=== PATIENT | female | born 1940 | race Caucasian/White ===

== ENCOUNTER → 2023-04-22 11:01 | Outpatient (REF) | payer MEDICARE, BC, SELFPAY ==
[2023-04-22 12:01] LABS: % Basophils 1.1 % (0-2); % Eosinophils 4.2 % (0-6); % Immature Granulocytes 0.5 % (0-0.5); % Monocytes 10.5 % (1.7-9.3); % Neutrophils 62.7 % (42.2-75.2); Absolute Basophils 0.1 10^3/uL (0-0.2); Absolute Eosinophils 0.3 10^3/uL (0-0.7); Absolute Lymphocytes 1.7 10^3/uL (1.2-3.4); Absolute Monocytes 0.8 10^3/uL (0.1-0.6); Absolute Neutrophils 4.9 10^3/uL (1.4-6.5); Hematocrit 38.1 % (37.0-47.0); Hemoglobin 12.5 g/dL (12.0-16.0); Mean Corp Hgb Conc. 32.8 g/dL (33.0-37.0); Mean Corpuscular Hgb 30.6 pg (27.0-31.0); Mean Corpuscular Volume 93.4 fL (81.0-99.0); Mean Platelet Volume 10.9 fL (7.4-10.4); Nucleated Red Blood Cells % 0 %; Platelet Count 203 10^3/uL (130-400); Red Blood Cell Count 4.08 10^6/uL (4.20-5.40); Red Cell Dist. Width 16.2 % (11.5-14.5); White Blood Cell Count 7.8 10^3/uL (4.8-10.8)
[2023-04-22 12:36] LABS: ALT (SGPT) 19 U/L (0-35); AST (SGOT) 25 U/L (14-36); Alkaline Phosphatase 61 U/L (38-126); Blood Urea Nitrogen 18 mg/dl (7-17); Calcium 10.2 mg/dl (8.4-10.2); Carbon Dioxide 28 mmol/L (22-30); Chloride 102 mmol/L (98-107); Glucose 116 mg/dl (70-99); Potassium 4.5 mmol/L (3.5-5.1); Sodium 139 mmol/L (135-145); Total Bilirubin 0.7 mg/dl (0.2-1.3); Total Protein 7.2 g/dl (6.3-8.2)
[2023-04-22 13:33] LABS: Erythrocyte Sed Rate 26 mm/hour (0-20)
== END ==
LOC: REG 11:01
PROVIDERS: ATTENDING PHYSICIAN Internal Medicine Rheumatology; FAMILY PHYSICIAN Internal Medicine Geriatric Medicine
DX: L40.9 Psoriasis, unspecified (principal); Z79.899 Other long term (current) drug therapy
CPT/HCPCS: 36415; 80053; 85025; 85652; 86140

== ENCOUNTER 2023-05-29 03:46 | Inpatient (IN) | payer MEDICARE, BC, SELFPAY ==
[2023-05-28 20:53] VITALS: BP 152/95
[2023-05-28 21:06] LABS: % Basophils 0.4 % (0-2); % Eosinophils 0.8 % (0-6); % Immature Granulocytes 0.5 % (0-0.5); % Lymphocytes 9.1 % (20.5-51.1); % Monocytes 10.9 % (1.7-9.3); % Neutrophils 78.3 % (42.2-75.2); Absolute Eosinophils 0.1 10^3/uL (0-0.7); Absolute Immature Granulocytes 0.1 10^3/uL (0-0.05); Absolute Monocytes 1.2 10^3/uL (0.1-0.6); Absolute Neutrophils 8.3 10^3/uL (1.4-6.5); Hematocrit 39.4 % (37.0-47.0); Hemoglobin 13.1 g/dL (12.0-16.0); Mean Corp Hgb Conc. 33.2 g/dL (33.0-37.0); Mean Corpuscular Hgb 31.2 pg (27.0-31.0); Mean Corpuscular Volume 93.8 fL (81.0-99.0); Mean Platelet Volume 10.3 fL (7.4-10.4); Nucleated Red Blood Cells % 0 %; Platelet Count 115 10^3/uL (130-400); Red Cell Dist. Width 16.8 % (11.5-14.5); White Blood Cell Count 10.6 10^3/uL (4.8-10.8)
[2023-05-28 21:30] LABS: ALT (SGPT) 18 U/L (0-35); AST (SGOT) 22 U/L (14-36); Albumin 4.6 g/dl (3.5-5.0); Alkaline Phosphatase 63 U/L (38-126); Blood Urea Nitrogen 17 mg/dl (7-17); Calcium 9.9 mg/dl (8.4-10.2); Carbon Dioxide 27 mmol/L (22-30); Chloride 98 mmol/L (98-107); Glucose 122 mg/dl (70-99); Potassium 4.3 mmol/L (3.5-5.1); Sodium 133 mmol/L (135-145); Total Bilirubin 1.1 mg/dl (0.2-1.3); Total Protein 7.6 g/dl (6.3-8.2); eGFR 56.95
[2023-05-28 23:56] VITALS: BMI 34.7
[2023-05-29] VITALS (13 sets, daily range): BP systolic 124–175; BP diastolic 71–98; PULSE 86; O2SAT 92; BMI 34.7
--- NOTE | 2023-05-29 00:36 | ED.GENMED ---
History of Present Illness
General
Chief Complaint: Fever
Source: patient
Exam Limitations: none
Time Seen by Provider: 05/29/23 00:00
Nursing documentation reviewed up to this point in time: agreed with
Travel History
Have you had any contact with someone who has COVID-19?: No
Do you have any symptoms of coronavirus? Fever > 100 degrees, chills, cough, shortness of breath, sore throat, loss of taste or smell, muscle aches, or headache?: Yes
Symptoms:: fever
History of Present Illness
History of Present Illness:
82-year-old female resident of [facility] presents with fever and increased lethargy today. Family members were visiting with her and throughout the afternoon she started to get more and more 'lethargic '. Patient was unable to ambulate with
her walker to the bathroom. Family was concerned because she is in personal care, but does not typically request extra help. They feel that she is a fall risk since she already has balance issues.
Vital signs are stable. Patient not hypoxic
Nursing note reviewed. I agree with nursing documentation up to this point in time.
Home Meds and allergies reviewed.
NUMBER AND COMPLEXITY OF PROBLEMS ADDRESSED AT THE ENCOUNTER
� Chronic conditions affecting care: Balance issues, CHF, CAD, hypertension, hyperlipidemia, frequent urination requiring frequent trips to the bathroom, frequent UTIs
� Acute Exacerbation and/or Progression of Chronic Illness: None
� Differential Diagnosis includes: UTI, sepsis
AMOUNT AND/OR COMPLEXITY OF DATA TO BE REVIEWED AND ANALYZED
I performed an independent evaluation of the following and my interpretation is:
EKG: EKG shows normal sinus rhythm rate of 79 with nonspecific sinus arrhythmia. Normal axis. Normal interval. When compared with previous EKG dated October 10, 2022, PVCs are no longer present.
CT:
X-rays:
Ultrasound:
Laboratory Studies: 10.6 white blood cell count
Other:
Review of other/old records:
Clinical information was obtained by an independent historian: Both daughters
Prescriptions/Medications Considered but not given:
Further testing considered but not performed:
RISK OF COMPLICATIONS AND/OR MORBIDITY OR MORTALITY OF PATIENT MANAGEMENT
Social determinants of health affecting care: Good Social Support
Discussion with other providers: Hospitalist for admission
Escalation of care including admission/observation vs risk of discharge considered: Patient does not live in assisted living. She does have the ability to ask for help but family states that she does not typically call for
help, especially when getting up in the middle of the night. Family states that because of her weakness they are concerned that she might fall. I am in agreement. Patient to be brought in for further evaluation
CRITICAL CARE NOTE: Not applicable
Total Time (exclusive of procedures):
Update:
Past History
Past History
ED Past Medical History: CAD, CHF, HTN and Other (Renal calculi)
ED Past Surgical History: Cardiac
Social History
Tobacco: Non-smoker
Alcohol: None
Drug: None
Personal:
Living: assisted living
Employment: Retired
Phy Exam
General Physical Exam
General Presentation: well appearing and no apparent distress
General Skin: warm and dry
General Habitus: elderly
General Mental: alert and anxious
General Hydration: appears well hydrated
ENT Exam
ENT Exam: EOMI, pharynx normal, neck supple and normocephalic
Eye Exam
Eye Exam: PERRL, cornea clear and conjunctiva normal
Cardiovascular Exam
Cardiovascular Exam: regular rate/rhythm, no edema, no murmur and normal peripheral pulses
Pulmonary Exam
Pulmonary Exam: lungs clear, no respiratory distress, no rales, no crackles, no rhonchi, no stridor, no wheezing and no cough
Gastrointestinal Exam
Gastrointestinal Exam: normal bowel sounds, non tender, soft, no organomegaly, no pulsatile mass and non distended
Neurological Exam
Neurological Exam: alert, oriented x3, no motor deficits and speech normal
Musculoskeletal Exam
Musculoskeletal Exam: full ROM and no edema
Skin Exam
Skin Exam: normal color, warm/dry, no rash and no petechia
Psychiatric Exam
Psychiatric Exam: normal mood/affect
Course
Orders/Labs/Results
Orders:
Orders
05/28/23 21:01
Complete Blood Count/With Diff Urgent
Comprehensive Metabolic Panel Urgent
05/29/23 00:14
COVID-19 Antigen Urgent
Source: Nasal Swab
Lactic Acid Q4H
Comment: ON ICE, CANCEL 2ND ORDER IF FIRST LACTIC ACID LEVEL <2
Blood Culture Q30M
JOSE Source: Blood/Venous
Specimen Description:
Comment: FROM 2 SEPARATE SITES
Influenza A+B Rapid Molecular Urgent
JOSE Source: Nasal Swab
Specimen Description:
05/29/23 00:39
Electrocardiogram (*1) Urgent
Reason for Study: QTc Monitoring
EKG- Treatment ONCE
05/29/23 01:32
Acetaminophen [Tylenol/Feverall] 650 mg .ROUTE .STK-MED ONE
05/29/23 01:34
Acetaminophen [Tylenol/Feverall] 650 mg RECTAL NOW STA
05/29/23 01:43
Urinalysis Reflex To Culture Urgent
Date Specimen was Collected: 05/29/23
Time Specimen was Collected: 01:39
Comment: STRAIGHT CATH
Urine Microscopic Reflex Cult Urgent
Urine Culture Urgent
JOSE Source: U
Specimen Description:
Date Specimen was Collected: 05/29/23
Time Specimen was Collected: 01:39
05/29/23 02:18
CR Chest - 2 Views Urgent
Comment:
Reason For Exam: fever
05/29/23 02:52
Admit/Transfer Patient As Directed
Co-Sign Provider:
Level of Care: Inpatient admission
Assign to:: Medical/Surgical
Physician / Group: [email or web address]
Diagnosis: Fever, Hypoactive TME, HX recurrent UTI including ESBL E Coli
Reason for Hospitalization: Fever, Hypoactive TME, HX recurrent UTI including ESBL E Coli
Expected length of stay greater than two midnights?: Yes
ELOS- Estimated Length of Stay in days: 5
I certify the patient meets the requirements for IP care: Yes
05/29/23 02:57
LevoFLOXacin 500 MG/100 ML [Levaquin] 500 mg in 100 ml IV NOW
05/29/23 03:04
Code Status As Directed
Resuscitation Status: Do not resuscitate
Reached after discussion with pt or family/Healthcare POA: Yes
05/29/23 03:05
DNR Bracelet Application ONCE
05/29/23 04:20
Blood Culture Q30M
JOSE Source: Blood/Venous
Specimen Description:
Comment: FROM 2 SEPARATE SITES
05/29/23 05:43
0.9% Sodium Chloride 1000 ml [Nss] 1,000 ml IV 60 mls/hr
Acetaminophen [Tylenol] 650 mg PO Q4HPRN PRN
05/29/23 05:43
Activity As Directed
Activity Level: With Assistance
Intake/ Output As Directed
Frequency: Per unit guidelines
Vital Signs As Directed
Frequency: Per unit guidelines
Weight As Directed
Frequency: Daily
Physical Therapy Consult [Pt Eval And Treat] Routine
Activity Level: With Assistance
Speech Screening from Silvano Routine
DX Deep Vein Thrombosis Video Routine
05/29/23 05:47
Basic Metabolic Panel IN AM
Complete Blood Count/No Diff IN AM
05/29/23 06:00
EKG [Electrocardiogram (*1)] IN AM
Reason for Study: QTc Monitoring
05/29/23 18:00
Enoxaparin Sodium [Lovenox] 40 mg SC QPM
05/30/23 06:00
LevoFLOXacin 500 MG/100 ML [Levaquin] 500 mg in 100 ml IV Q24H
Abnormal Lab Results
05/28/23 05/29/23
21:01 01:43
MCH 31.2 H pg
(27.0-31.0)
RDW 16.8 H %
(11.5-14.5)
Plt Count 115 L 10^3/uL
(130-400)
Abs Immat Gran (auto) 0.1 H 10^3/uL
(0-0.05)
Absolute Neuts (auto) 8.3 H 10^3/uL
(1.4-6.5)
Absolute Lymphs (auto) 1.0 L 10^3/uL
(1.2-3.4)
Absolute Monos (auto) 1.2 H 10^3/uL
(0.1-0.6)
Neutrophils % 78.3 H %
(42.2-75.2)
Lymphocytes % 9.1 L %
(20.5-51.1)
Monocytes % 10.9 H %
(1.7-9.3)
Sodium 133 L mmol/L
(135-145)
Glucose 122 H mg/dl
(70-99)
Ur Occult Blood Reflex Trace A
(Negative)
Leukocyte Esterase Rfl 1+ A
(Negative)
Urine RBC 3-6 A /HPF
(0-2)
Urine WBC (Reflex) >100 A /HPF
(0-5)
Urine Bacteria (Reflex) Many A
(Negative)
05/28/23 21:01
05/28/23 21:01
Vital Signs
Initial and Last Documented VS:
Initial Vital Signs
Temp Pulse Resp Pulse Ox
100.3 F 84 19 96
05/28/23 20:50 05/28/23 20:50 05/28/23 20:50 05/28/23 20:50
Last Documented Vital Signs
Temp Pulse Resp BP Pulse Ox
98.6 F 82 16 131/75 93
05/29/23 18:32 05/29/23 18:32 05/29/23 18:32 05/29/23 18:32 05/29/23 18:32
*Critical Care Note
Total Time (30-74mins, 75-104mins- exclusive of procedures): Not Applicable
ED Attending Note
-
Portions of this chart may have been created with voice recognition software.� Occasional wrong word or��sound alike� substitutions may have occurred due to the inherent limitations of voice recognition software.
Discharge Plan
Departure
Patient Disposition: Admit
Date of Disposition: 05/29/23
Time of Disposition: 02:51
Admit to: Med/Surg
Presentation/result/management discussed w/ accepting MD/DO: Hospitalist
Patient with high blood pressure during this ER visit?: No
Discharge Problem:
Weakness, Acute UTI, Ambulatory dysfunction
Interventions
Interventions:
*Risk Screen - Suicide Last Done: 05/28/23 23:56
*General Assessment Last Done: 05/28/23 23:56
*Neglect/Abuse Screening Last Done: 05/28/23 23:56
*ED COVID-19 Vaccine History Last Done: 05/28/23 20:52
*Nursing Disposition Last Done: 05/29/23 18:02
ED- Neurological Assessment Last Done: 05/29/23 00:03
ED-Skin Assessment Last Done: 05/29/23 00:03
[2023-05-29 00:37] LABS: COVID-19 Antigen Negative (Negative)
[2023-05-29] MEDS: TYLENOL/FEVERALL 650 MG RECTAL (01:40)
[2023-05-29 01:49] LABS: Urine Albumin Trace (Neg - Trace); Urine Bilirubin Negative (Negative); Urine Character Slightly Cloudy (Clear); Urine Color Yellow; Urine Glucose Negative (Negative); Urine Ketone Negative (Negative); Urine Leukocyte 1+ (Negative); Urine Nitrite Negative (Negative); Urine Occult Blood Trace (Negative); Urine Urobilinogen Negative (Neg - 1+)
--- NOTE | 2023-05-29 02:47 | HPS.HSE ---
Family Physician
-
Family Physician: Marcos Brunson
Chief Complaint
-
AMS, weak
History of Present Illness
I could not get any information from the patient as she is lethargic
Information gathered by chart review and speaking with the ER staff and family
82F Res of [facility] HX ESBL E Coli UTIs pw fever and increased lethargy today noted by Family members
Reports urine burning last week
Associated with general debility due to generalized weakness complicated byy acute on chr gait dysfunction. Normally use walker to the bathroom.
HX Interstial cystitis
Medical History
Past Medical History
Past Medical History: Reports Other
Additional Past Medical History:
Severe carotid calcification without critical narrowing
Diastolic congestive heart failure
Coronary artery disease
Wru-rkwuoql-lexkfvbon diabetes mellitus
Psoriasis with arthritis
Hyperlipidemia
Mild thrombocytopenia
Diverticulosis
History cholelithiasis
History nephrolithiasis
Abdominal aortic aneurysm
Obesity with excessive calorie intake
Past Surgical History: Reports None
Social History
Tobacco: Non-smoker
Alcohol: None
Drug: None
Living: Detention
Family History
Family History: Not pertinent
Allergies / Home Medications
Allergies reflects when Allergies were last updated in [facility].
Home Medications with original date entered in [facility]
Allergy/Medication List:
Allergies
Allergy/AdvReac Type Severity Reaction Status Date / Time
adhesive Allergy bleeding, Verified 05/28/23 20:52
reddness,
rash
amoxicillin Allergy Unknown, Verified 05/28/23 20:52
Tolerates
cephalosporins
scallops Allergy Unknown Verified 05/28/23 20:52
Home Medications
isosorbide mononitrate 60 mg tablet,extended release 24 hr 60 mg PO DAILY Heart disease/condition 05/05/21
methotrexate sodium 2.5 mg tablet 15 mg PO SA arthritis 05/05/21
pravastatin 10 mg tablet 10 mg PO DAILY High cholesterol 05/05/21
aspirin 81 mg tablet,delayed release 81 mg PO DAILY Blood clot prevention/tx 08/11/21
metoprolol succinate 50 mg tablet,extended release 24 hr 50 mg PO DAILY Blood pressure 08/11/21
potassium chloride 20 mEq tablet,extended release(part/cryst) (Klor-Con M) 20 meq PO DAILY Electrolyte Repletion 08/11/21
calcium carbonate 500 mg PO DAILY Supplement 06/06/22
cholecalciferol (vitamin D3) 50 mcg (2,000 unit) capsule (Vitamin D3) 50 mcg PO DAILY Supplement 06/06/22
coenzyme Q10 100 mg capsule 100 mg PO DAILY Supplement 06/06/22
ferrous sulfate 325 mg (65 mg iron) tablet (iron) 325 mg PO DAILY Supplement 06/06/22
folic acid 1 mg tablet 1 mg PO DAILY Supplement 06/06/22
estradiol 0.01% (0.1 mg/gram) vaginal cream 1 applic vaginal MOTH@2200 Hormonal Agent 10/06/22
hydrocortisone 1 % topical cream (Cortisone (hydrocortisone)) 1 applic topical DAILY Skin Issues 10/06/22
mirabegron 25 mg tablet,extended release 24 hr (Myrbetriq) 25 mg PO DAILY Urinary Issue 10/06/22
acetaminophen 500 mg tablet (Pain Relief Extra Strength (acetaminophen)) 1,000 mg (2 x 500 mg) PO Q8H PRN mild pain #30 tabs 10/13/22
oxycodone 10 mg tablet 10 mg PO Q4HPRN PRN mod sev pain #14 tabs 10/13/22
polyethylene glycol 3350 17 gram oral powder packet (HealthyLax) 17 g PO DAILY #30 ea 10/13/22
tamsulosin 0.4 mg capsule 0.4 mg PO DAILYPRN PRN bladder scan volume > 400 mL #30 caps 10/13/22
cefixime 400 mg capsule 400 mg PO DAILY 7 days #7 caps 01/17/23
Review of Systems
-
Constitutional: Reports Fever
EENT: Reports No Symptoms
Respiratory: Reports No Symptoms
Cardiac: Reports No Symptoms
Abdomen/GI: Reports No Symptoms
: Reports No Symptoms
Musculoskeletal: Reports No Symptoms
Skin: Reports No Symptoms
Neurological: Reports See HPI and Weakness
Endocrine: Reports No Symptoms
Hematologic/Lymphatic: Reports No Symptoms
Psych: Reports No Symptoms
Physical Exam
Vital Signs
Vital Signs
Temp Pulse Resp BP Pulse Ox
101.8 F H 77 20 156/89 94
05/29/23 00:03 05/29/23 02:30 05/29/23 02:30 05/29/23 02:00 05/29/23 02:30
Physical Exam
General: Well Developed, No Apparent Distress and Comfortable
HEENT: NormoCephalic, Anicteric and Moist mucous membranes
Respiratory: Clear; No Wheezes or Rales
Cardiac: S1/S2 and Regular Rhythm; No Murmur
Breast: Deferred by me
GI: Soft, Non Tender, Non Distended and Normal Bowel Sounds
Rectal: Deferred by Provider
Genito-urinary: Deferred by me
Musculoskeletal: No Edema
Neuro: Awake, Alert (lethargic ) and Nonfocal/grossly intact
Psych: Calm
Laboratory Results
-
05/28/23 21:01
05/28/23 21:01
Laboratory Results
Lactic Acid Cancelled 05/29/23 04:15
Total Bilirubin 1.1 mg/dl (0.2-1.3) 05/28/23 21:01
AST 22 U/L (14-36) 05/28/23 21:01
ALT 18 U/L (0-35) 05/28/23 21:01
Alkaline Phosphatase 63 U/L (38-126) 05/28/23 21:01
Data Reviewed
-
Lab Data: Labs Reviewed by me
Old Records: Reviewed
Impression/Plan
-
Reviewed VS: T 101.8 HR 80s BP 160/100 RR 24 POx 93
Data
WCC 10.6
Plt 115
Na 133
Cr 1.0
e GFR 56
LA 1.0
UA: incomplete
BC xsnt
CXR : pending final report
NEG Covid
Last hospitalist admission: 10/08/22- 10/14/22 DXs:
Mechanical fall
Right proximal humeral fracture
Scalp laceration
Left hand fifth digit proximal interphalangeal joint dislocation
Klebsiella pneumonia urinary tract infection
ASSESSMENT & PLAN
Acute fever DDX: Recurrent UTI - Hemodynamically stable, NEG LA
Associated hypoactive TME with lethargy: Risks for falls and aspiration
Associated general debility due to generalized weakness complicated by acute on chr gait dysfuntion.
HX Klebsiella POS UCx - castle AB sensitive (10/07/22)
HX ESBL E Coli UTI sensitive to LVQ, resistant to CFP (06/05/22)
- await UA, UCx , BCx
- await CXR final report
- Empiric IV LVQ
- EKG to monitor QTc
- IVF
- Held PO Meds including MTX
- Precautions: Fall and aspiration
Accute on chronic Ambulatory dysfunction ie to above
-PT/OT/case management
HX CAD
- on metoprolol
- on isosorbide mononitrate
Chronic HFpEF with EF of 55 to 60%
Essential hypertension
HX renal calculi/staghorn calculus
Hyperlipidemia
- on statin
Psoriatic arthritis
- held methotrexate
DVT Px: LMWH
Code: DNR per [place] at bed side
IP MS
[2023-05-29 02:49] LABS: Urine Amorphous Seen; Urine Bacteria Many (Negative); Urine Squamous Cell >30 /LPF (Few); Urine White Cell >100 /HPF (0-5)
[2023-05-29] MEDS: LEVAQUIN 100 IV (04:23)
[2023-05-29 06:12] LABS: Hematocrit 36.6 % (37.0-47.0); Mean Corp Hgb Conc. 32.8 g/dL (33.0-37.0); Mean Corpuscular Hgb 31.2 pg (27.0-31.0); Mean Corpuscular Volume 95.1 fL (81.0-99.0); Platelet Count 103 10^3/uL (130-400); Red Blood Cell Count 3.85 10^6/uL (4.20-5.40); Red Cell Dist. Width 16.5 % (11.5-14.5); White Blood Cell Count 10.6 10^3/uL (4.8-10.8)
[2023-05-29 06:19] LABS: Blood Urea Nitrogen 17 mg/dl (7-17); Calcium 9.2 mg/dl (8.4-10.2); Carbon Dioxide 25 mmol/L (22-30); Chloride 100 mmol/L (98-107); Estimated Creatinine Clearance 51 ml/min; Glucose 149 mg/dl (70-99); Potassium 3.5 mmol/L (3.5-5.1); Sodium 135 mmol/L (135-145); eGFR > 60.00
--- NOTE | 2023-05-29 06:40 | EDRN ---
the pt is asking for water to drink. Per admitting hospitalist Dr Dinero verbal order, this MEDICAL SALES REPRESENTATIVE performed swallowing screening on this pt. the pt passed the swallow screening. Per admitting Hospitalist Dr Dinero, if the pt passed her swallowing
screening then she can be on Cholesterol Lowering Diet.
--- NOTE | 2023-05-29 08:12 | W.PN.UPDATE ---
Update Note
Progress Note Update
Patient seen and examined in a.m. patient was admitted this morning and this will be a nonbillable note as a result.
Although history of some dementia as was recently transition from independent living at [facility] to assisted seems to have a fair amount of cognition and relates that she has had prior urinary tract infections in the past and cannot understand
why she keeps getting them. We talked about also her risk of resistant infections given her immune compromised being on methotrexate. She had a fairly high fever overnight of 101.8 and explained to her we will need to have a period of time without
a fever for least 24 hours prior to a discharge plan.
Presently does not describe any dysuria but had significant burning in the last week where she suspected she may have a recurrent bladder infection.
Exam except for borderline BP elevation is otherwise benign she is not on telemetry but exhibits a regular rhythm on auscultation
Abdomen is benign
No significant peripheral edema
Laboratory profiling shows a white count of 10.6 which will be trended
Borderline thrombocytopenia with 103,000 and macrocytic indices. Potassium 3.5 sodium 135
Chest x-ray was reviewed and shows some blunting of costophrenic angles no infiltrate with marked kyphosis
Agree with present course of antibiotics chosen in the form of Levaquin will monitor QTc with an EKG in a.m.
Await culture results of blood and urine
Will cautiously continue present course of IV fluids given her febrile course however would consider discontinuation if sodium continues to trend down
Add as needed hydralazine for hypertension continue metoprolol
[2023-05-29] MEDS: NSS 1000 IV (09:24)
[2023-05-29] MEDS: TYLENOL 650 MG PO (14:56)
[2023-05-29] MEDS: MERREM 1000 MG IV (17:07)
[2023-05-29] MEDS: STERILE WATER FOR INJECTION 20 ML IV (17:07)
[2023-05-29] MEDS: LOVENOX 40 MG SC (17:17)
--- NOTE | 2023-05-29 17:45 | CON.ID ---
Consultation
-
Date/Time Consultation Requested: May 29, 2023, 1527
Date/Time Consultation Performed: May 29, 2023, 1800
Requesting Provider: Dr. Guido Le
Performing Provider: Dr. Charlee Sanchez
Reason for Consultation: Fever
Chief Complaint / Past History
Chief Complaint
Fever
History of Present Illness
82-year-old female with diabetes mellitus, heart failure with preserved EF, CAD, Psoriatic arthritis on methotrexate, recurrent UTI who came from personal care assisted living due to fevers. She reports last week she had burning with urination.
Today started with fever and chills. Per record also with increased lethargy. She was therefore sent to the ER. In the ER she has been febrile. Urinalysis with greater than 100 white blood cells. She received levofloxacin and meropenem. No
flank pain. No nausea, vomiting. No diarrhea.
Past History
Additional Past Medical History:
COPD
Diabetes mellitus
Diastolic congestive heart failure
Coronary artery disease
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
Hyperlipidemia
AAA
Nephrolithiasis
Recurrent UTI
Allergy History:
adhesive Allergy (Verified 05/28/23 20:52)
bleeding, reddness, rash
amoxicillin Allergy (Verified 05/28/23 20:52)
Unknown, Tolerates cephalosporins
scallops Allergy (Verified 05/28/23 20:52)
Unknown
Medications Reviewed: Yes
Current Antibiotics:
levofloxacin
meropenem x1
Social History
Tobacco: Non-Smoker
Alcohol: None
Drug: None
Living: Assisted Living
Family History
Family History: Not Pertinent
Review of Systems
Review of Systems
General: Fever, Chills and Change in Appetite
HEENT: Negative Sinus Problems, Headache or Pharyngitis
Cardiovascular: Negative Chest Pain
Respiratory: Negative Dyspnea or Cough
Gasteroenterology: Negative Nausea or Vomiting
Genital / Urological: Dysuria; Negative Flank Pain
Endocrine: Weakness
Neurological: Negative Headache
All systems: All other systems were reviewed and were negative
Vital Signs
Temp Pulse Resp BP Pulse Ox
99.1 F 84 18 147/81 93
05/29/23 17:14 05/29/23 14:47 05/29/23 14:47 05/29/23 14:47 05/29/23 14:47
Selected Entries
05/29/23
00:03 05/29/23
14:53
Temp 101.8 F H 102.7 F H
Physical Exam
Physical Exam
Constitutional: No Acute Distress, Comfortable and Obese
Eyes: No Conjunctival Hemorrhage and Sclera Anicteric
Cardiovascular: Regular Rate and S1/S2
Pulmonary: Clear
Gastrointestinal: Soft, Non Tender, Non Distended and Normal Bowel Sounds
Genito-Urinary: Negative CVA Tenderness
Extremities: Negative Edema
Neurological: AO x 3
Lab / Diagnostic Study Results
05/29/23 05:47
05/29/23 05:47
Abs Immat Gran (auto) 0.1 10^3/uL (0-0.05) H 05/28/23 21:01
Absolute Neuts (auto) 8.3 10^3/uL (1.4-6.5) H 05/28/23 21:01
Absolute Lymphs (auto) 1.0 10^3/uL (1.2-3.4) L 05/28/23 21:01
Absolute Monos (auto) 1.2 10^3/uL (0.1-0.6) H 05/28/23 21:01
Absolute Basos (auto) 0.0 10^3/uL (0-0.2) 05/28/23 21:01
Immature Gran % 0.5 % (0-0.5) 05/28/23 21:01
Neutrophils % 78.3 % (42.2-75.2) H 05/28/23 21:01
Lymphocytes % 9.1 % (20.5-51.1) L 05/28/23 21:01
Monocytes % 10.9 % (1.7-9.3) H 05/28/23 21:01
Eosinophils % 0.8 % (0-6) 05/28/23 21:01
Basophils % 0.4 % (0-2) 05/28/23 21:01
Lactic Acid Cancelled 05/29/23 04:15
Ur Squamous Epith Cells >30 /LPF (Few) 05/29/23 01:43
Microbiology Results
Micro:
05/29/23 16:50 Blood Culture - Pending
Blood/Venous
05/29/23 16:09 Blood Culture - Pending
Blood/Venous
05/29/23 10:47 MRSA Screen - Pending
Nose
05/29/23 04:20 Blood Culture - Pending
Blood/Venous
05/29/23 01:43 Urine Culture - Pending
Urine
05/29/23 00:14 Influenza Types A & B (TESS) - Final
Nasal Swab Negative for Influenza A & B, NAAT
Negative results must be combined with clinical observations
and patient history.
Nucleic Acid Amplification test (NAAT)performed on the
[employer] platform.
05/29/23 00:14 Blood Culture - Pending
Blood/Venous
05/29/23 CXR: There are changes of COPD but no acute findings
Assessment / Plan
# UTI
#Fever
# hx ESBL-Ecoli in urine
# PCN allergy. Tolerated cephalosporins.
- Follow blood cx.
-Follow Ucx.
-DC levofloxacin
-Start Ertapenem pending cx data.
-Trend temps.
[2023-05-29] MEDS: INVANZ 60 MG IV (22:13)
[2023-05-30] MEDS: NSS 1000 IV ×2 (02:42→17:15)
[2023-05-30 05:57] VITALS: BMI 34.4
[2023-05-30 06:18] LABS: Hematocrit 35.3 % (37.0-47.0); Hemoglobin 11.8 g/dL (12.0-16.0); Mean Corp Hgb Conc. 33.4 g/dL (33.0-37.0); Mean Corpuscular Hgb 31.1 pg (27.0-31.0); Mean Corpuscular Volume 92.9 fL (81.0-99.0); Red Cell Dist. Width 16.4 % (11.5-14.5); White Blood Cell Count 8.6 10^3/uL (4.8-10.8)
[2023-05-30 06:46] LABS: Blood Urea Nitrogen 12 mg/dl (7-17); Calcium 8.3 mg/dl (8.4-10.2); Carbon Dioxide 22 mmol/L (22-30); Chloride 104 mmol/L (98-107); Estimated Creatinine Clearance 57 ml/min; Glucose 121 mg/dl (70-99); Sodium 132 mmol/L (135-145); eGFR > 60.00
[2023-05-30 06:53] LABS: Mean Platelet Volume 11.4 fL (7.4-10.4); Platelet Count 85 10^3/uL (130-400)
[2023-05-30 07:17] VITALS: BP 102/69
--- NOTE | 2023-05-30 07:59 | W.PN.HOSP.TC ---
Addendum entered and electronically signed by Juliocesar Frost MD 05/30/23 15:20:
Sepsis, POA
Original Note:
Today's Communication/Plan
-
IV antibiotics.
Assessment / Plan
Assessment / Plan
Physical exam:
General: Acutely ill. Nontoxic
HEENT: Normocephalic, Atraumatic and Moist Mucous Membranes
Respiratory: Clear to Auscultation; Negative Wheezes, Rales or Rhonchi
Cardiac: Regular Rhythm and S1/S2
GI: Soft, Nontender and Nondistended
Musculoskeletal: No Clubbing, No Cyanosis and No Edema
Neuro: Awake, Alert and Oriented
Psych: Calm
A/P:
Urinary tract infection/history of ESBL E. coli in the urine in the past:
-Stop Levaquin
-Start IV ertapenem
-ID consulted appreciated
-Urine culture no growth
-Blood culture pending but no growth so far
-PT recommends skilled rehab
Hypokalemia:
Replete and trend
Hyponatremia:
Mild will continue to monitor
Associated hypoactive TME with lethargy: Risks for falls and aspiration
Associated general debility due to generalized weakness complicated by acute on chr gait dysfuntion.
-Improving
-Resume PO Meds including MTX but actually supposed to take on weekend
- Precautions: Fall and aspiration
Accute on chronic Ambulatory dysfunction ie to above
-PT/OT/case management
HX CAD
- on metoprolol--> resume with holding parameter
- on isosorbide mononitrate--> might resume tomorrow
Chronic HFpEF with EF of 55 to 60%
-Appears euvolemic (not on diuretics)
Essential hypertension
-BP in the low side but stable
- stop IV hydralazine
- on metoprolol--> resume with holding parameter
- on isosorbide mononitrate--> might resume tomorrow
HX renal calculi/staghorn calculus
Hyperlipidemia
- on statin
Psoriatic arthritis
- held methotrexate--> can resume now
DVT Px: LMWH
Code: DNR
Anticipated Discharge: 24 - 48 hours
Subjective/Interval History
-
Date of Service: May 30, 2023
Patient feels better overall. No nausea or vomiting. Afebrile today (Tmax 102.7 Fahrenheit yesterday). She had bowel movement today
Objective Data
-
Labs:
Laboratory Results
05/30/23
05:57
WBC 8.6
Hgb 11.8 L
Hct 35.3 L
Plt Count 85 L
Sodium 132 L
Potassium 3.0 L
Chloride 104
Carbon Dioxide 22
BUN 12
Creatinine 0.8
Glucose 121 H
Calcium 8.3 L
Vital Signs:
Vital Signs
Temp Pulse Resp BP Pulse Ox
99.3 F 82 20 165/84 96
05/29/23 23:17 05/29/23 23:33 05/29/23 23:17 05/29/23 23:33 05/29/23 23:17
I&O
05/29/23 05/30/23 05/31/23
06:59 06:59 06:59
Intake Total 1969 / 1969
Output Total 500 / 500
Balance 1470 / 1470
[2023-05-30] MEDS: KCL 40 MEQ PO ×2 (09:00→10:49)
--- NOTE | 2023-05-30 11:57 | W.PN.ID1 ---
Date of Service
Date of Service: May 30, 2023
Today's Communication
DC Ertapenem (d2) if blood cx's remain neg x 48hrs.
Assessment / Plan
#Fever- unclear source
# hx ESBL-Ecoli in urine
# PCN allergy. Tolerated cephalosporins.
- Ucx negative.
-CXR negative
-Blood cx's negative to date
- DC Ertapenem (d2) if blood cx's remain neg x 48hrs.
-Trend temps.
%Additional Past Medical History:
COPD
Diabetes mellitus
Diastolic congestive heart failure
Coronary artery disease
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
Hyperlipidemia
AAA
Nephrolithiasis
Recurrent UTI
Chief Complaint
-: Fever
Subjective / Review of Systems
Feeling better today.
Vital Signs / Physical Exam
Vital Signs
Vital Signs
Temp Pulse Resp BP Pulse Ox
98.6 F 85 16 102/69 96
05/30/23 07:17 05/30/23 07:17 05/30/23 07:17 05/30/23 07:17 05/30/23 07:17
Physical Exam
Constitutional: No Acute Distress and Comfortable
Pulmonary: Clear
Gastrointestinal: Soft, Non Tender and Non Distended
Genito-Urinary: Negative Suprapubic Tenderness or CVA Tenderness
Extremities: Negative Edema
Neurological: AO x 3
Objective Data
Lab Data
Lab Results
05/30/23 05:57
05/30/23 05:57
Estimated Creat Clear 57 ml/min 05/30/23 05:57
Lactic Acid Cancelled 05/29/23 04:15
Total Bilirubin 1.1 mg/dl (0.2-1.3) 05/28/23 21:01
AST 22 U/L (14-36) 05/28/23 21:01
ALT 18 U/L (0-35) 05/28/23 21:01
Alkaline Phosphatase 63 U/L (38-126) 05/28/23 21:01
Most recent labs reviewed.
Micro Results:
05/29/23 01:43 Urine Culture - Final
Urine No Significant Growth
05/29/23 16:50 Blood Culture - Pending
Blood/Venous
05/29/23 04:20 Blood Culture - Preliminary
Blood/Venous No Growth in 24 hours- Final report to follow
05/29/23 00:14 Blood Culture - Preliminary
Blood/Venous No Growth in 24 hours- Final report to follow
05/29/23 16:09 Blood Culture - Pending
Blood/Venous
05/29/23 10:47 MRSA Screen - Pending
Nose
05/29/23 00:14 Influenza Types A & B (TESS) - Final
Nasal Swab Negative for Influenza A & B, NAAT
Negative results must be combined with clinical observations
and patient history.
Nucleic Acid Amplification test (NAAT)performed on the
[employer] platform.
05/29/23 CXR: There are changes of COPD but no acute findings
[2023-05-30] MEDS: TOPROL XL 50 MG PO (12:52)
[2023-05-30] MEDS: MYRBETRIQ EXTENDED RELEASE 50 MG PO (12:52)
[2023-05-30] MEDS: FOLVITE 1 MG PO (12:52)
[2023-05-30] MEDS: VITAMIN D3 (cholecalciferol) 50 MCG PO (12:52)
[2023-05-30] MEDS: ASPIR LOW (ENTERIC COATED) 81 MG PO (12:53)
[2023-05-30] MEDS: OSCAL CAL 500 500 MG PO (12:53)
[2023-05-30] MEDS: PRAVACHOL 10 MG PO (12:53)
[2023-05-30] MEDS: FEOSOL 325 MG PO (12:53)
[2023-05-30 14:30] VITALS: BP 153/93
--- NOTE | 2023-05-30 15:05 | PN.CDI ---
CDI
- -
CDI:
Physician Documentation Request
Admit Date: 05/29/23 03:46
Dear Doctor Margot,
Patient admitted with UTI.
Selected Entries
05/28/23
20:50 05/29/23
00:03
Temp 100.3 F 101.8 F H
05/29/23
00:00 05/29/23
00:16 05/29/23
01:00
Resp Rate 24 24
Please clarify which of the following most accurately describes the status of the patient's infection:
Sepsis
- Systemic manifestations of infection, with 2 or more SIRS criteria which include:
- Fever >100.4 degrees F or hypothermia < 96.8 degrees F
- Leukocytosis - WBC > 12,000 or leukopenia - WBC < 4,000 or > 10% bands
- Tachycardia > 90 beats per minute
- Tachypnea - RR > 20 breaths per minute or PaCO2 , 32mmHg
Source: Merck Manual 2013
Localized Infection Only, Without Systemic Illness
- indicate the site/source, such as UTI, etc.
Other
Use of terms such as suspected, likely, concern for, or probable (associated with a specific diagnosis that is being evaluated, monitored, or treated as if it exists) are acceptable and can be coded in the inpatient setting, when documented at the
time of discharge.
Thank you,
Daya Erazo RN, BSN
CDI Specialist
Available via [place] text
Please use your independent medical judgment in providing your response.
[2023-05-30 15:15] VITALS: BP 165/91
[2023-05-30 16:15] VITALS: BMI 34.4
--- NOTE | 2023-05-30 16:18 | CM ---
Reviewed the chart notes and left voice message for the patient's sister to return call. CM spoke with Zina, membership sales representative at [facility] who confirmed the patient resides in personal care and uses a rolling walker to ambulate. The patient has
had [facility] and [facility] in the past. The patient's discharge plans will depend on progress. PT recommending SNF. CM continues to be available to patient/family and is monitoring medical plan for needs at discharge.
Plan: Discharge plans will depend on the patient's progress.
[2023-05-30 16:21] VITALS: BP 165/92; PULSE 77; O2SAT 95
[2023-05-30] MEDS: LOVENOX 40 MG SC (17:15)
[2023-05-30 17:20] VITALS: BP 136/88
[2023-05-30] MEDS: INVANZ 60 MG IV (21:00)
[2023-05-30 23:45] VITALS: BP 143/85
[2023-05-31 05:23] LABS: % Basophils 0.5 % (0-2); % Eosinophils 3.1 % (0-6); % Immature Granulocytes 0.4 % (0-0.5); % Lymphocytes 19.9 % (20.5-51.1); % Monocytes 12.3 % (1.7-9.3); % Neutrophils 63.8 % (42.2-75.2); Absolute Eosinophils 0.2 10^3/uL (0-0.7); Absolute Lymphocytes 1.5 10^3/uL (1.2-3.4); Absolute Monocytes 0.9 10^3/uL (0.1-0.6); Absolute Neutrophils 4.8 10^3/uL (1.4-6.5); Hemoglobin 12.9 g/dL (12.0-16.0); Mean Corp Hgb Conc. 31.5 g/dL (33.0-37.0); Mean Corpuscular Hgb 30.5 pg (27.0-31.0); Mean Corpuscular Volume 96.9 fL (81.0-99.0); Mean Platelet Volume 11.2 fL (7.4-10.4); Nucleated Red Blood Cells % 0 %; Platelet Count 96 10^3/uL (130-400); Red Blood Cell Count 4.23 10^6/uL (4.20-5.40); Red Cell Dist. Width 16.8 % (11.5-14.5); White Blood Cell Count 7.5 10^3/uL (4.8-10.8)
[2023-05-31 06:00] VITALS: BMI 34.4
[2023-05-31 06:02] LABS: Blood Urea Nitrogen 13 mg/dl (7-17); Calcium 8.9 mg/dl (8.4-10.2); Carbon Dioxide 21 mmol/L (22-30); Chloride 107 mmol/L (98-107); Estimated Creatinine Clearance 57 ml/min; Glucose 74 mg/dl (70-99); Sodium 136 mmol/L (135-145); eGFR > 60.00
[2023-05-31 07:12] VITALS: BP 140/85
--- NOTE | 2023-05-31 08:19 | W.PN.HOSP.TC ---
Today's Communication/Plan
-
Continue current management. Discharge planning in progress.
Assessment / Plan
Assessment / Plan
Physical exam:
General: No acute distress
HEENT: Normocephalic, Atraumatic and Moist Mucous Membranes
Respiratory: Clear to Auscultation; Negative Wheezes, Rales or Rhonchi
Cardiac: Regular Rhythm and S1/S2
GI: Soft, Nontender and Nondistended
Musculoskeletal: No Clubbing, No Cyanosis and No Edema
Neuro: Awake, Alert and Oriented. Generalized weakness
Psych: Calm
A/P:
Fever. History of ESBL E. coli in the urine in the past:
-Stop Levaquin
-Stop IV ertapenem after 3 doses today.
-ID consulted appreciated
-Urine culture no growth
-Blood culture no growth so far
-PT recommends skilled rehab
Delirium:
-Improving
Hypokalemia:
Replete and trend
Hyponatremia:
Mild will continue to monitor
Associated hypoactive TME with lethargy: Risks for falls and aspiration
Associated general debility due to generalized weakness complicated by acute on chr gait dysfuntion.
-Improving
-Resume PO Meds including MTX but actually supposed to take on weekend
- Precautions: Fall and aspiration
Acute on chronic Ambulatory dysfunction ie to above
-PT/OT/case management
HX CAD
- on metoprolol--> resume with holding parameter
- on isosorbide mononitrate--> might resume tomorrow
Chronic HFpEF with EF of 55 to 60%
-Appears euvolemic (not on diuretics)
Essential hypertension
-BP in the low side but stable
- stop IV hydralazine
- on metoprolol--> resume with holding parameter
- on isosorbide mononitrate--> might resume tomorrow
HX renal calculi/staghorn calculus
Hyperlipidemia
- on statin
Psoriatic arthritis
- held methotrexate--> can resume now
DVT Px: LMWH
Code: DNR
Anticipated Discharge: Within 24 hours
Subjective/Interval History
-
Date of Service: May 31, 2023
Patient remains afebrile. Confusion on and off but alert and oriented by the time of my evaluation.
Objective Data
-
Labs:
Laboratory Results
05/31/23
03:55
WBC 7.5
Hgb 12.9
Hct 41.0
Plt Count 96 L
Sodium 136
Potassium 4.0 D
Chloride 107
Carbon Dioxide 21 L
BUN 13
Creatinine 0.8
Glucose 74
Calcium 8.9
Vital Signs:
Vital Signs
Temp Pulse Resp BP Pulse Ox
97.9 F 73 22 143/85 96
05/30/23 23:45 05/30/23 23:45 05/30/23 23:45 05/30/23 23:45 05/30/23 23:45
I&O
05/30/23 05/31/23 06/01/23
06:59 06:59 06:59
Intake Total 1969
Output Total 500 / 500
Balance 1470 / 1470 2129
[2023-05-31] MEDS: NSS IV (08:39)
[2023-05-31] MEDS: TOPROL XL 50 MG PO (09:12)
[2023-05-31] MEDS: MYRBETRIQ EXTENDED RELEASE 50 MG PO (09:12)
[2023-05-31] MEDS: IMDUR (EXTENDED RELEASE) 60 MG PO (09:12)
[2023-05-31] MEDS: OSCAL CAL 500 500 MG PO (09:13)
[2023-05-31] MEDS: ASPIR LOW (ENTERIC COATED) 81 MG PO (09:13)
[2023-05-31] MEDS: FEOSOL 325 MG PO (09:14)
[2023-05-31] MEDS: FOLVITE 1 MG PO (09:14)
[2023-05-31] MEDS: KCL 20 MEQ PO (09:14)
[2023-05-31] MEDS: PRAVACHOL 10 MG PO (09:14)
[2023-05-31] MEDS: VITAMIN D3 (cholecalciferol) 50 MCG PO (09:14)
--- NOTE | 2023-05-31 09:54 | W.PN.ID1 ---
Date of Service
Date of Service: May 31, 2023
Today's Communication
DC ertapenem and observe.
ID will sign off.
Assessment / Plan
#Fever- unclear source, rsolved
# hx ESBL-Ecoli in urine
# PCN allergy. Tolerated cephalosporins.
- Ucx negative.
-CXR negative
-Blood cx's remains negative to date
- DC Ertapenem (d3) and observe.
%Additional Past Medical History:
COPD
Diabetes mellitus
Diastolic congestive heart failure
Coronary artery disease
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
Hyperlipidemia
AAA
Nephrolithiasis
Recurrent UTI
Chief Complaint
-: Fever
Subjective / Review of Systems
No complaints. Wants home PT instead of going to SNF.
Vital Signs / Physical Exam
Vital Signs
Vital Signs
Temp Pulse Resp BP Pulse Ox
97.8 F 75 18 140/85 96
05/31/23 07:12 05/31/23 09:12 05/31/23 07:12 05/31/23 09:12 05/31/23 07:12
Physical Exam
Constitutional: No Acute Distress and Comfortable
Genito-Urinary: Negative CVA Tenderness
Objective Data
Lab Data
Lab Results
05/31/23 03:55
05/31/23 03:55
Estimated Creat Clear 57 ml/min 05/31/23 03:55
Lactic Acid Cancelled 05/29/23 04:15
Total Bilirubin 1.1 mg/dl (0.2-1.3) 05/28/23 21:01
AST 22 U/L (14-36) 05/28/23 21:01
ALT 18 U/L (0-35) 05/28/23 21:01
Alkaline Phosphatase 63 U/L (38-126) 05/28/23 21:01
Most recent labs reviewed.
Micro Results:
05/29/23 04:20 Blood Culture - Preliminary
Blood/Venous No Growth in 48 hours- Final report to follow
05/29/23 00:14 Blood Culture - Preliminary
Blood/Venous No Growth in 48 hours- Final report to follow
05/29/23 16:50 Blood Culture - Preliminary
Blood/Venous No Growth in 24 hours- Final report to follow
05/29/23 16:09 Blood Culture - Preliminary
Blood/Venous No Growth in 24 hours- Final report to follow
05/29/23 10:47 MRSA Screen - Final
Nose No Methicillin Resistant Staphylococcus aureus isolated.
05/29/23 01:43 Urine Culture - Final
Urine No Significant Growth
05/29/23 00:14 Influenza Types A & B (TESS) - Final
Nasal Swab Negative for Influenza A & B, NAAT
Negative results must be combined with clinical observations
and patient history.
Nucleic Acid Amplification test (NAAT)performed on the
[employer] platform.
05/29/23 CXR: There are changes of COPD but no acute findings
[2023-05-31 15:16] VITALS: BP 113/71
[2023-05-31 16:16] VITALS: BP 126/83; PULSE 75; O2SAT 96
--- NOTE | 2023-05-31 16:40 | CM ---
Reviewed the chart notes and spoke with the patient at the bedside. Yesterdays PT notes reflected max assist. Patient would not be able to return to personal care at [facility] if this remains the case. PT saw late today and patient did better.
Will follow tomorrow for progress. [facility]. CM continues to be available to patient/family and is monitoring medical plan for needs at discharge.
Plan: Discharge plans will depend on the patient's progress.
[2023-05-31] MEDS: LOVENOX 40 MG SC (17:23)
[2023-05-31 23:00] VITALS: BP 141/81
[2023-06-01 04:14] VITALS: BMI 34.3
[2023-06-01 07:45] VITALS: BP 149/82
[2023-06-01] MEDS: IMDUR (EXTENDED RELEASE) 60 MG PO (09:02)
[2023-06-01] MEDS: TOPROL XL 50 MG PO (09:02)
[2023-06-01] MEDS: VITAMIN D3 (cholecalciferol) 50 MCG PO (09:02)
[2023-06-01] MEDS: MYRBETRIQ EXTENDED RELEASE 50 MG PO (09:02)
[2023-06-01] MEDS: ASPIR LOW (ENTERIC COATED) 81 MG PO (09:02)
[2023-06-01] MEDS: PRAVACHOL 10 MG PO (09:03)
[2023-06-01] MEDS: FEOSOL 325 MG PO (09:03)
[2023-06-01] MEDS: FOLVITE 1 MG PO (09:03)
[2023-06-01] MEDS: KCL 20 MEQ PO (09:03)
[2023-06-01] MEDS: OSCAL CAL 500 500 MG PO (09:03)
--- NOTE | 2023-06-01 10:18 | W.PN.HOSP.TC ---
Today's Communication/Plan
-
Continue current management. Discharge planning in progress.
Assessment / Plan
Assessment / Plan
Physical exam:
General: No acute distress
HEENT: Normocephalic, Atraumatic and Moist Mucous Membranes
Respiratory: Clear to Auscultation; Negative Wheezes, Rales or Rhonchi
Cardiac: Regular Rhythm and S1/S2
GI: Soft, Nontender and Nondistended
Musculoskeletal: No Clubbing, No Cyanosis and No Edema
Neuro: Awake, Alert and Oriented. Generalized weakness
Psych: Calm
A/P:
Fever. History of ESBL E. coli in the urine in the past:
-Stop Levaquin
-Stop IV ertapenem after 3 doses today.
-ID consulted appreciated
-Urine culture no growth
-Blood culture no growth so far
-PT recommends skilled rehab
-Patient was hesitant on going to rehab but she agrees to that today.
Delirium:
-Improving
Hypokalemia:
Replete and trend
Hyponatremia:
Mild will continue to monitor
Associated hypoactive TME with lethargy: Risks for falls and aspiration
Associated general debility due to generalized weakness complicated by acute on chr gait dysfuntion.
-Improving
-Resume PO Meds including MTX but actually supposed to take on weekend
- Precautions: Fall and aspiration
Acute on chronic Ambulatory dysfunction ie to above
-PT/OT/case management
HX CAD
- on metoprolol--> resume with holding parameter
- on isosorbide mononitrate--> might resume tomorrow
Chronic HFpEF with EF of 55 to 60%
-Appears euvolemic (not on diuretics)
Essential hypertension
-BP in the low side but stable
- stop IV hydralazine
- on metoprolol--> resume with holding parameter
- on isosorbide mononitrate--> might resume tomorrow
HX renal calculi/staghorn calculus
Hyperlipidemia
- on statin
Psoriatic arthritis
- held methotrexate--> can resume now
DVT Px: LMWH
Code: DNR
Anticipated Discharge: Today
Subjective/Interval History
-
Date of Service: June 01, 2023
No new complaints.
Objective Data
-
Vital Signs:
Vital Signs
Temp Pulse Resp BP Pulse Ox
98.0 F 78 16 149/82 94
06/01/23 07:45 06/01/23 09:02 06/01/23 07:45 06/01/23 09:02 06/01/23 07:45
I&O
05/31/23 06/01/23 06/02/23
06:59 06:59 06:59
Intake Total 2129 1320 / 1320
Output Total
Balance 2129 1316 / 1316
--- NOTE | 2023-06-01 10:42 | CM ---
Addendum entered by Fariha Stewart RN 06/01/23 15:10:
Spoke with Ivonne at the bedside. Ivonne and her daughter will transport the patient to [facility].
Addendum entered by Fariha Stewart RN 06/01/23 13:27:
CM left voice message for Ivonne regarding patient is ready to discharge to [facility] today after 330. Awaiting call back to confirm.
Addendum entered by Fariha Stewart RN 06/01/23 11:14:
IMM signed and placed on chart. Patient agreeable to discharge to [facility] SNF/rehab for short term only. Patient's [id number] Ivonne will provide transportation.
Plan: Discharge to [facility] today.
Call report to: [phone]
Fax report to: [phone]
Original Note:
Reviewed the chart notes and spoke with Shanell CHAN at [facility] ([phone]). Reviewed most recent PT evaluation which now shows that the patient is ambulating 130' with rolling walker at supervision level and was supervision level for all
mobility. Shanell will not accept back until the patient goes to a SNF/rehab first. Discuss with Shanell, that the patient nor her family want her to go to SNF. Shanell would not budge. Per Shanell, the patient is at to great a risk for falls and they
are not equipped to provide the patient with the necessary supervision. CM continues to be available to patient/family and is monitoring medical plan for needs at discharge.
Plan: Discharge plans will depend on patient accepting SNF/rehab prior to transitioning back to [facility].
--- NOTE | 2023-06-01 11:48 | W.DCSUMMARY ---
Discharge Summary
Discharge Data
Date of Admission: 05/29/23
Date of Discharge: 06/01/23
-
Pending Results: No
Hospital Course
Patient 82 years old female with history of diabetes mellitus, CHF, CAD, psoriasis, hyperlipidemia, COPD, recurrent UTIs, presented to the hospital with fevers and mental status changes. Patient was started on IV antibiotics. ID was consulted.
Given her history of ESBL in the past ID changed her antibiotics to ertapenem. Her WBC count normal, her blood cultures no growth, urine cultures no growth, therefore ID discontinue antibiotics after 3 days worth of antibiotics. Patient mental
status improved but she required more assistance than usual so she will go to group home facility. Patient also remained afebrile for more than 48 hours. ID cleared her for discharge. She is going to be discharged to group home facility
in stable condition.
Discharge duration: 35 minutes
Discharge Plan
-
Patient Disposition: Prison/SNF
Discharge Diagnosis/Procedures: Fever. History of extended spectrum beta-lactamase Escherichia coli. Toxic metabolic encephalopathy. Hypokalemia. Hyponatremia.
Diet: Low Cholesterol
Activity: As tolerated
Driving Restrictions: As prior to admission
Blood Work: Please PCP to order CBC, BMP within 1 week
Referrals:
Marcos Brunson MD [Family Provider] - in less than 1 week
Prescriptions:
Continued
isosorbide mononitrate 60 MG tablet extended release 24 hr
60 mg PO DAILY
pravastatin 10 MG tablet
10 mg PO DAILY
methotrexate sodium 2.5 MG tablet
15 mg PO SA
metoprolol succinate 50 MG tablet extended release 24 hr
50 mg PO DAILY
aspirin 81 MG tablet,delayed release (DR/EC)
81 mg PO DAILY
potassium chloride [Klor-Con M20] 20 MEQ tablet,ER particles/crystals
20 meq PO DAILY
ferrous sulfate [iron] 325 mg (65 mg iron) Tablet
325 mg PO DAILY
folic acid 1 mg Tablet
1 mg PO DAILY
cholecalciferol (vitamin D3) [Vitamin D3] 50 mcg (2,000 unit) Capsule
50 mcg PO DAILY
calcium carbonate 500 mg calcium (1,250 mg) Tablet
500 mg PO DAILY
acetaminophen 325 mg Tablet
650 mg PO Q6H PRN (Reason: mild pain/fever)
Myrbetriq 50 mg tablet extended release 24 hr
50 mg PO DAILY
naloxone 4 mg/actuation [place],Non-Aerosol
4 mg INTRANASAL Q3M PRN (Reason: opioid overdose)
Discharge Orders:
Discharge Patient (As Directed); Ordered 06/01/23
Ordered By: Juliocesar Frost
Discharge Date and Time
Discharge Date/Time: 06/01/23 17:02
Print Language: EMIRATI
[2023-06-01 15:47] VITALS: BP 148/89
--- NOTE | 2023-06-01 17:01 | PTCARENOTE ---
Patient discharged to [facility], transported by sister in law. This RN removed patient's IVs and called report to Ricardo at facility. Patient dressed and belongings gathered with assistance, taken down to sister in law's car at main lobby via staff
escort and wheelchair.
== END 2023-06-01 17:02 | DRG 871 ==
LOC: 2 NORTH 03:46
PROVIDERS: Emergency Medicine; Internal Medicine; ADMITTING PHYSICIAN Internal Medicine; ATTENDING PHYSICIAN Hospitalist; CONSULT PHYSICIAN Internal Medicine Infectious Disease; EMERGENCY PHYSICIAN Student in an Organized Health Care Education/Training Program; FAMILY PHYSICIAN Internal Medicine Geriatric Medicine
DX: A41.9 Sepsis, unspecified organism (principal); G92.8 Other toxic encephalopathy; N39.0 Urinary tract infection, site not specified; I50.32 Chronic diastolic (congestive) heart failure; E87.1 Hypo-osmolality and hyponatremia; R26.2 Difficulty in walking, not elsewhere classified; I11.0 Hypertensive heart disease with heart failure; I25.10 Atherosclerotic heart disease of native coronary artery without angina pectoris; E66.09 Other obesity due to excess calories; E78.5 Hyperlipidemia, unspecified; E11.9 Type 2 diabetes mellitus without complications; I71.40 Abdominal aortic aneurysm, without rupture, unspecified; L40.50 Arthropathic psoriasis, unspecified; J44.9 Chronic obstructive pulmonary disease, unspecified; E87.6 Hypokalemia; D69.6 Thrombocytopenia, unspecified; K57.30 Diverticulosis of large intestine without perforation or abscess without bleeding; Z60.2 Problems related to living alone; Z66 Do not resuscitate; Z11.52 Encounter for screening for COVID-19; Z87.440 Personal history of urinary (tract) infections; Z91.81 History of falling; Z68.34 Body mass index [BMI] 34.0-34.9, adult; Z87.442 Personal history of urinary calculi; Z88.1 Allergy status to other antibiotic agents; Z88.0 Allergy status to penicillin; Z91.013 Allergy to seafood; Z91.048 Other nonmedicinal substance allergy status
CPT/HCPCS: 71046; 80048; 80053; 81003; 81015; 83605; 83735; 85025; 85027; 87040; 87070; 87086; 87502; 87811; 93005; 96365; 97116; 97530; 99285; J1335; J2185

== ENCOUNTER 2023-07-07 23:59 | Observation (INO) | payer MEDICARE, BC, SELFPAY ==
[2023-07-07 18:16] VITALS: BP 188/97; BMI 33.3
[2023-07-07 18:50] LABS: % Basophils 0.5 % (0-2); % Eosinophils 0.5 % (0-6); % Immature Granulocytes 0.5 % (0-0.5); % Lymphocytes 4.5 % (20.5-51.1); % Monocytes 7.2 % (1.7-9.3); % Neutrophils 86.8 % (42.2-75.2); Absolute Basophils 0.1 10^3/uL (0-0.2); Absolute Eosinophils 0.1 10^3/uL (0-0.7); Absolute Immature Granulocytes 0.1 10^3/uL (0-0.05); Absolute Lymphocytes 0.5 10^3/uL (1.2-3.4); Absolute Monocytes 0.8 10^3/uL (0.1-0.6); Absolute Neutrophils 9.5 10^3/uL (1.4-6.5); Hematocrit 42.3 % (37.0-47.0); Hemoglobin 14.2 g/dL (12.0-16.0); Mean Corp Hgb Conc. 33.6 g/dL (33.0-37.0); Mean Corpuscular Hgb 31.2 pg (27.0-31.0); Mean Platelet Volume 11.2 fL (7.4-10.4); Nucleated Red Blood Cells % 0 %; Platelet Count 127 10^3/uL (130-400); Red Blood Cell Count 4.55 10^6/uL (4.20-5.40); Red Cell Dist. Width 15.9 % (11.5-14.5); White Blood Cell Count 10.9 10^3/uL (4.8-10.8)
[2023-07-07 18:55] LABS: Lactic Acid 1.4 mmol/L (0.7-2.0)
[2023-07-07 18:56] LABS: ALT (SGPT) 19 U/L (0-35); AST (SGOT) 25 U/L (14-36); Albumin 4.9 g/dl (3.5-5.0); Alkaline Phosphatase 68 U/L (38-126); Blood Urea Nitrogen 19 mg/dl (7-17); Calcium 9.7 mg/dl (8.4-10.2); Carbon Dioxide 23 mmol/L (22-30); Estimated Creatinine Clearance 46 ml/min; Glucose 110 mg/dl (70-99); Lipase 135 U/L (23-300); Total Bilirubin 0.7 mg/dl (0.2-1.3); Total Protein 8.4 g/dl (6.3-8.2)
[2023-07-07 19:05] LABS: Chloride 102 mmol/L (98-107); Sodium 137 mmol/L (135-145)
[2023-07-07 20:14] VITALS: BP 158/92
[2023-07-07 20:55] LABS: Urine Albumin 2+ (Neg - Trace); Urine Bilirubin Negative (Negative); Urine Character Clear (Clear); Urine Color Yellow; Urine Glucose Negative (Negative); Urine Ketone Negative (Negative); Urine Leukocyte 1+ (Negative); Urine Nitrite Negative (Negative); Urine Occult Blood 1+ (Negative); Urine Urobilinogen Negative (Neg - 1+)
[2023-07-07 21:00] VITALS: BP 138/76
[2023-07-07 21:06] LABS: Urine Bacteria Moderate (Negative)
--- NOTE | 2023-07-07 22:00 | ED.GENMED ---
History of Present Illness
General
Chief Complaint: Urinary Symptoms
Source: patient and family
Time Seen by Provider: 07/07/23 20:07
Travel History
Have you had any contact with someone who has COVID-19?: No
Do you have any symptoms of coronavirus? Fever > 100 degrees, chills, cough, shortness of breath, sore throat, loss of taste or smell, muscle aches, or headache?: No
History of Present Illness
History of Present Illness:
83-year-old female who presents with family after she developed a fever and weakness. The patient also has been complaining of some dysuria and urinary symptoms. No abdominal pain. The patient does have a history of UTIs. Family states she was
profoundly weak and could not walk.
Past History
Past History
ED Past Medical History: CAD, CHF, HTN and Other (Renal calculi)
ED Past Surgical History: Cardiac
Social History
Tobacco: Non-smoker
Alcohol: None
Drug: None
Personal:
Living: assisted living
Employment: Retired
Phy Exam
Physical Exam
Physical Exam:
CONSTITUTIONAL Patient alert and oriented to person, place and time. Well-appearing. Vital signs reviewed.
HEAD atraumatic, normocephalic.
EYES eyelids normal to inspection,Extraocular muscles intact, Conjunctiva normal, Sclera normal.
NECK normal range of motion, Trachea midline, no jugular venous distention.
RESPIRATORY CHEST No respiratory distress noted, Chest expansion equal, Bilateral breath sounds clear.
CARDIOVASCULAR regular rate and rhythm, Heart sounds normal.
ABDOMEN abdomen nontender, Bowel sounds normal. No distention.
BACK normal inspection, no obvious deformities
UPPER EXTREMITY range of motion normal, Motor strength normal, no cyanosis, no edema.
LOWER EXTREMITY range of motion normal, Motor strength normal, no cyanosis, no edema.
NEURO Speech normal, No focal motor deficits, [place] coma scale 15, Memory normal, Cranial Nerves intact to screening exam.
SKIN skin warm, dry, and normal in color.
Course
Orders/Labs/Results
Orders:
Orders
07/07/23 18:21
Electrocardiogram (*1) Urgent
Reason for Study: Other
Other Reason for Exam: Possible Sepsis
EKG- Treatment ONCE
CR Chest - 2 Views Urgent
Comment:
Reason For Exam: suspected infection
07/07/23 18:35
Complete Blood Count/With Diff Urgent
Comprehensive Metabolic Panel Urgent
Lactic Acid Urgent
Lipase Urgent
Blood Culture Urgent
JOSE Source: Blood/Venous
Specimen Description:
07/07/23 20:45
Urinalysis Reflex To Culture Urgent
Date Specimen was Collected: 07/07/23
Time Specimen was Collected: 20:44
Urine Microscopic Reflex Cult Urgent
Urine Culture Urgent
JOSE Source: U
Specimen Description:
Date Specimen was Collected: 07/07/23
Time Specimen was Collected: 20:44
07/07/23 22:00
CefTRIAXone [Rocephin] 1,000 mg IV NOW STA
07/07/23 22:03
LevoFLOXacin 500 mg IVPB NOW LevoFLOXacin 500 MG/100 ML [Levaquin] 500 mg in 100 ml IV NOW
Abnormal Lab Results
07/07/23 07/07/23
18:35 20:45
WBC 10.9 H 10^3/uL
(4.8-10.8)
MCH 31.2 H pg
(27.0-31.0)
RDW 15.9 H %
(11.5-14.5)
Plt Count 127 L 10^3/uL
(130-400)
MPV 11.2 H fL
(7.4-10.4)
Abs Immat Gran (auto) 0.1 H 10^3/uL
(0-0.05)
Absolute Neuts (auto) 9.5 H 10^3/uL
(1.4-6.5)
Absolute Lymphs (auto) 0.5 L 10^3/uL
(1.2-3.4)
Absolute Monos (auto) 0.8 H 10^3/uL
(0.1-0.6)
Neutrophils % 86.8 H %
(42.2-75.2)
Lymphocytes % 4.5 L %
(20.5-51.1)
BUN 19 H mg/dl
(7-17)
Glucose 110 H mg/dl
(70-99)
Total Protein 8.4 H g/dl
(6.3-8.2)
Ur Occult Blood Reflex 1+ A
(Negative)
Leukocyte Esterase Rfl 1+ A
(Negative)
Urine RBC 3-6 A /HPF
(0-2)
Urine WBC (Reflex) 11-15 A /HPF
(0-5)
Urine Bacteria (Reflex) Moderate A
(Negative)
Urine Albumin (Reflex) 2+ A
(Neg - Trace)
07/07/23 18:35
07/07/23 18:35
Vital Signs
Initial and Last Documented VS:
Initial Vital Signs
Temp Pulse Resp BP Pulse Ox
102.8 F H 87 16 188/97 94
07/07/23 18:16 07/07/23 18:16 07/07/23 18:16 07/07/23 18:16 07/07/23 18:16
Last Documented Vital Signs
Temp Pulse Resp BP Pulse Ox
102.8 F H 83 28 158/92 93
07/07/23 18:16 07/07/23 20:15 07/07/23 20:15 07/07/23 20:14 07/07/23 20:15
MDM/Problems Addressed
MDM/Problems Addressed:
Urinary tract infection, change in mental status
*Radiology
Radiology exam reviewed: all reviewed NAD by ED Provider
*Pulse Oximetry
Patient hypoxic: no
*[employer] Interpretation
Rate: normal
Interpretation: normal
Rhythm: sinus
*Critical Care Note
Total Time (30-74mins, 75-104mins- exclusive of procedures): Not Applicable
Data Reviewed
Review of Other/Old Records Reveals: Testing (Prior urine cultures reveal prior Klebsiella, ESBL and Serratia.)
Source: patient and family
Prescriptions/Medications Considered But Not Given:
Consider ceftriaxone but ESBL was resistant. Cover with Levaquin given her penicillin allergy
ED Attending Note
-
Portions of this chart may have been created with voice recognition software.� Occasional wrong word or��sound alike� substitutions may have occurred due to the inherent limitations of voice recognition software.
Discharge Plan
Departure
Patient Disposition: Admit
Date of Disposition: 07/07/23
Time of Disposition: 22:05
Admit to: Med/Surg
Presentation/result/management discussed w/ accepting MD/DO: Hospitalist
Discharge Problem:
Urinary tract infection
Prescriptions:
No Action
isosorbide mononitrate 60 MG tablet extended release 24 hr
60 mg PO DAILY
pravastatin 10 MG tablet
10 mg PO DAILY
methotrexate sodium 2.5 MG tablet
15 mg PO SA
metoprolol succinate 50 MG tablet extended release 24 hr
50 mg PO DAILY
aspirin 81 MG tablet,delayed release (DR/EC)
81 mg PO DAILY
potassium chloride [Klor-Con M20] 20 MEQ tablet,ER particles/crystals
20 meq PO DAILY
ferrous sulfate [iron] 325 mg (65 mg iron) Tablet
325 mg PO DAILY
folic acid 1 mg Tablet
1 mg PO DAILY
cholecalciferol (vitamin D3) [Vitamin D3] 50 mcg (2,000 unit) Capsule
50 mcg PO DAILY
calcium carbonate 500 mg calcium (1,250 mg) Tablet
500 mg PO DAILY
acetaminophen 325 mg Tablet
650 mg PO Q6H PRN (Reason: mild pain/fever)
Myrbetriq 50 mg tablet extended release 24 hr
50 mg PO DAILY
naloxone 4 mg/actuation [place],Non-Aerosol
4 mg INTRANASAL Q3M PRN (Reason: opioid overdose)
Referrals:
Marcos Brunson MD [Family Provider] -
Interventions
Interventions:
*Risk Screen - Suicide Last Done: 07/07/23 18:16
*General Assessment Last Done: 07/07/23 20:17
*Neglect/Abuse Screening Last Done: 07/07/23 18:16
ED- Fall Risk Assessment Last Done: 07/07/23 18:16
*ED COVID-19 Vaccine History Last Done: 07/07/23 20:17
ED-Female Genitourinary Assessment Last Done: 07/07/23 20:17
Discharge Date and Time
Print Language: ALB[place]
[2023-07-07] MEDS: LEVAQUIN 100 IV (22:19)
[2023-07-08] VITALS (7 sets, daily range): BP systolic 148–176; BP diastolic 79–100; PULSE 71; O2SAT 95; BMI 34.1
--- NOTE | 2023-07-08 | HPS.HSE ---
Family Physician
-
Family Physician: Marcos Brunson
Chief Complaint
-
weakness
History of Present Illness
83-year-old female past medical history of frequent UTIs, ESBL E. coli UTI, interstitial cystitis, coronary artery disease, chronic HFpEF, hypertension, renal calculus/staghorn calculus, hyperlipidemia, psoriatic arthritis, presenting for fever and
weakness and inability to walk starting today. Patient has been having dysuria for the past 4 to 5 days. She has chronic urinary frequency due to interstitial cystitis. No abdominal pain. No nausea or vomiting or diarrhea. No confusion.
Medical History
Past Medical History
Past Medical History: Reports Other (frequent UTIs, ESBL E. coli UTI, interstitial cystitis, coronary artery disease, chronic HFpEF, hypertension, renal calculus/staghorn calculus, hyperlipidemia, psoriatic arthritis)
Past Surgical History: Reports None
Social History
Tobacco: Non-smoker
Alcohol: None
Drug: None
Family History
Family History: Not pertinent
Allergies / Home Medications
Allergies reflects when Allergies were last updated in [employer].
Home Medications with original date entered in [employer]
Allergy/Medication List:
Allergies
Allergy/AdvReac Type Severity Reaction Status Date / Time
adhesive Allergy bleeding, Verified 07/07/23 18:20
reddness,
rash
amoxicillin Allergy Unknown, Verified 07/07/23 18:20
Tolerates
cephalosporins
scallops Allergy Unknown Verified 07/07/23 18:20
Home Medications
isosorbide mononitrate 60 mg tablet,extended release 24 hr 60 mg PO DAILY Heart disease/condition 05/05/21
methotrexate sodium 2.5 mg tablet 15 mg PO SA arthritis 05/05/21
pravastatin 10 mg tablet 10 mg PO DAILY High cholesterol 05/05/21
aspirin 81 mg tablet,delayed release 81 mg PO DAILY Blood clot prevention/tx 08/11/21
metoprolol succinate 50 mg tablet,extended release 24 hr 50 mg PO DAILY Blood pressure 08/11/21
potassium chloride 20 mEq tablet,extended release(part/cryst) (Klor-Con M) 20 meq PO DAILY Electrolyte Repletion 08/11/21
calcium carbonate 500 mg PO DAILY Supplement 06/06/22
cholecalciferol (vitamin D3) 50 mcg (2,000 unit) capsule (Vitamin D3) 50 mcg PO DAILY Supplement 06/06/22
ferrous sulfate 325 mg (65 mg iron) tablet (iron) 325 mg PO DAILY Supplement 06/06/22
folic acid 1 mg tablet 1 mg PO DAILY Supplement 06/06/22
acetaminophen 325 mg tablet 650 mg PO Q6H PRN mild pain/fever 05/29/23
mirabegron 50 mg tablet,extended release 24 hr (Myrbetriq) 50 mg PO DAILY 05/29/23
nitroglycerin 0.4 mg sublingual tablet (Nitrostat) 0.4 mg sublingual [id number] PRN chest pain 07/07/23
Review of Systems
-
History Source: Patient
A 12 point ROS was completed and negative except as noted: Yes
Constitutional: Reports No Symptoms
EENT: Reports No Symptoms
Respiratory: Reports No Symptoms
Cardiac: Reports No Symptoms
Abdomen/GI: Reports No Symptoms
: Reports See HPI
Musculoskeletal: Reports No Symptoms
Skin: Reports No Symptoms
Neurological: Reports No Symptoms
Endocrine: Reports No Symptoms
Hematologic/Lymphatic: Reports No Symptoms
Psych: Reports No Symptoms
Physical Exam
Vital Signs
Vital Signs
Temp Pulse Resp BP Pulse Ox
99.4 F 79 21 138/76 95
07/07/23 23:43 07/07/23 21:00 07/07/23 21:00 07/07/23 21:00 07/07/23 23:00
Physical Exam
General: Well Developed, Well Nourished and No Apparent Distress
HEENT: NormoCephalic, Moist mucous membranes and Atraumatic
Respiratory: Clear
Cardiac: S1/S2 and Regular Rhythm; No Murmur or Rub
GI: Soft, Non Tender, Non Distended and Normal Bowel Sounds; No Organomegaly
Rectal: Deferred by Provider
Musculoskeletal: No Clubbing, No Cyanosis and No Edema
Skin: No Rash
Neuro: Nonfocal/grossly intact
Laboratory Results
-
07/07/23 18:35
07/07/23 18:35
Laboratory Results
Lactic Acid 1.4 mmol/L (0.7-2.0) 07/07/23 18:35
Total Bilirubin 0.7 mg/dl (0.2-1.3) 07/07/23 18:35
AST 25 U/L (14-36) 07/07/23 18:35
ALT 19 U/L (0-35) 07/07/23 18:35
Alkaline Phosphatase 68 U/L (38-126) 07/07/23 18:35
Lipase 135 U/L (23-300) 07/07/23 18:35
Data Reviewed
-
Lab Data: Labs Reviewed by me
Old Records: Reviewed
Impression/Plan
-
IMPRESSION:
PLAN:
# Sepsis (fever, leukocytosis) secondary to urinary tract infection
# History of Klebsiella, ESBL E. coli UTI
-Leukocytosis, urinalysis shows 11-15 WBC, positive leukocyte esterase
-ESBL E. coli has been resistant to cephalosporins in the past
-Prior Klebsiella pansensitive
-Urine culture, blood cultures
-IV fluids
-Levaquin
History of interstitial cystitis
Coronary artery disease
-Continue aspirin
-Continue isosorbide mononitrate
-Continue metoprolol
Chronic HFpEF
Essential hypertension
History of renal calculus/staghorn calculus
Hyperlipidemia
-Continue statin
Psoriatic arthritis
-Continue methotrexate
DNR/DNI
DVT prophylaxis�heparin
Regular diet
[2023-07-08] MEDS: NSS 1000 IV (00:11)
[2023-07-08] MEDS: TYLENOL 650 MG PO (02:04)
[2023-07-08 06:54] LABS: % Basophils 0.8 % (0-2); % Eosinophils 0.6 % (0-6); % Immature Granulocytes 0.6 % (0-0.5); % Lymphocytes 14.2 % (20.5-51.1); % Monocytes 14.8 % (1.7-9.3); Absolute Basophils 0.1 10^3/uL (0-0.2); Absolute Lymphocytes 0.9 10^3/uL (1.2-3.4); Absolute Neutrophils 4.6 10^3/uL (1.4-6.5); Hematocrit 38.9 % (37.0-47.0); Hemoglobin 13.1 g/dL (12.0-16.0); Mean Corp Hgb Conc. 33.7 g/dL (33.0-37.0); Mean Corpuscular Volume 94.9 fL (81.0-99.0); Nucleated Red Blood Cells % 0 %; Red Cell Dist. Width 15.8 % (11.5-14.5); White Blood Cell Count 6.6 10^3/uL (4.8-10.8)
[2023-07-08 07:08] LABS: ALT (SGPT) 14 U/L (0-35); AST (SGOT) 24 U/L (14-36); Albumin 3.8 g/dl (3.5-5.0); Alkaline Phosphatase 44 U/L (38-126); Blood Urea Nitrogen 16 mg/dl (7-17); Calcium 8.9 mg/dl (8.4-10.2); Carbon Dioxide 20 mmol/L (22-30); Chloride 106 mmol/L (98-107); Estimated Creatinine Clearance 49 ml/min; Glucose 111 mg/dl (70-99); Potassium 3.9 mmol/L (3.5-5.1); Sodium 138 mmol/L (135-145); Total Protein 6.8 g/dl (6.3-8.2); eGFR > 60.00
[2023-07-08] MEDS: VITAMIN D3 (cholecalciferol) 50 MCG PO (09:01)
[2023-07-08] MEDS: ASPIR LOW (ENTERIC COATED) 81 MG PO (09:01)
[2023-07-08] MEDS: FEOSOL 325 MG PO (09:01)
[2023-07-08] MEDS: TOPROL XL 50 MG PO (09:02)
[2023-07-08] MEDS: HEPARIN 5000 UNITS SC ×2 (09:02→20:33)
[2023-07-08] MEDS: MYRBETRIQ EXTENDED RELEASE 50 MG PO (09:02)
[2023-07-08] MEDS: KCL 20 MEQ PO (09:02)
[2023-07-08] MEDS: FOLVITE 1 MG PO (09:02)
[2023-07-08] MEDS: PRAVACHOL 10 MG PO (09:08)
[2023-07-08] MEDS: IMDUR (EXTENDED RELEASE) 60 MG PO (09:08)
[2023-07-08] MEDS: OSCAL CAL 500 500 MG PO (09:08)
[2023-07-08] MEDS: DESENEX/MITRAZOL/ZEASORB 1 APPLIC TOPICAL ×2 (09:08→20:34)
--- NOTE | 2023-07-08 09:55 | W.PN.HOSP.TC ---
Addendum entered and electronically signed by Osei Fitzgerald MD 07/08/23 15:58:
Patient seen and examined
Discussed with resident
Discussed with nursing
Impression/plan:
Presentation with fever.
Initial concern for sepsis/SIRS (fever, leukocytosis).
Concern for recurrent UTI
Prior history of UTI with ESBL E. coli.
History of nephrolithiasis
History of interstitial cystitis
Check bladder scan.
Check renal/bladder sonogram
Broaden antibiotic spectrum initiating ertapenem pending urine cultures/blood cultures
Consider ID consultation
Hold methotrexate
Chronic CHF preserved EF
Essential hypertension
Dyslipidemia
Volume status compensated
Continue preadmission regimen including beta-raymundo, nitrates,.
Overactive bladder okay to resume Myrbetriq.
Psoriatic arthritis.
On methotrexate [facility].
Hold given acute infection.
Original Note:
Today's Communication/Plan
-
Assessment-
83-year-old female with PMHx significant for frequent UTIs, ESBL E. coli positive cultures, interstitial cystitis, nephrolithiasis (staghorn calculus), coronary artery disease, HFpEF, hypertension, psoriatic arthritis on methotrexate presents to the
hospital for fever, weakness and inability to walk x 1 day and dysuria x 5 days.
Impression-
UTI
Plan-
UTI-
SIRS criteria met, fever and leukocytosis on admission resolved.
Urine analysis positive for UTI, urine cultures pending.
Blood cultures pending. Lactose levels negative. Recent admission to hospital for UTI less than 1 month ago.
Rebound UTIs can be an indication of renal pathology in the setting of immunosuppression from methotrexate and history of interstitial cystitis.
PMHx of staghorn calculus.
Renal and bladder ultrasound ordered, pending.
Incontinent bladder. On bladder scan protocol.
Hold methotrexate for now. Switch antibiotics from Levaquin to ertapenem.
Follow-up with bladder on renal ultrasound, urine cultures, blood cultures.
CAD, HFpEF, HTN -
continue home medications aspirin, isosorbide mononitrate, metoprolol.
Monitor I's and O's. Monitor weight.
Monitor blood pressure.
Restrict fluid intake to 1800 mL.
Psoriatic arthritis-
Methotrexate on hold.
Hyperlipidemia-
continue statin
DVT prophylaxis
Heparin
CODE STATUS
DNR
Assessment / Plan
Assessment / Plan
Anticipated Discharge: 24 - 48 hours
Subjective/Interval History
-
Date of Service: July 08, 2023
No symptoms today. Patient feels comfortable while passing urine. No burning sensation. No spikes in fever.
Objective Data
-
Labs:
Laboratory Results
07/08/23
06:32
WBC 6.6
Hgb 13.1
Hct 38.9
Plt Count
Sodium 138
Potassium 3.9
Chloride 106
Carbon Dioxide 20 L
BUN 16
Creatinine 0.9
Glucose 111 H
Calcium 8.9
Total Bilirubin 1.0
AST 24
ALT 14
Alkaline Phosphatase 44
Vital Signs:
Vital Signs
Temp Pulse Resp BP Pulse Ox
98.7 F 69 17 156/85 94
07/08/23 07:00 07/08/23 07:00 07/08/23 07:00 07/08/23 07:00 07/08/23 02:00
I&O
07/07/23 07/08/23 07/09/23
06:59 06:59 06:59
Intake Total 240 / 240
Balance 240 / 240
Review of Systems
-
History Source: Patient
Constitutional: Reports No Symptoms
Respiratory: Reports No Symptoms
Cardiac: Reports No Symptoms
Abdomen/GI: Reports No Symptoms
Genitourinary: Reports No Symptoms
Neuro: Reports No Symptoms
Hematologic / Lymphatic: Reports No Symptoms
Allergy / Immunology: Reports No Symptoms
Physical Exam
-
General: Comfortable (In no apparent distress.)
HEENT: Normocephalic, Atraumatic and Moist Mucous Membranes
Respiratory: Clear to Auscultation (No wheezes, rales, rhonchi.)
Cardiac: Regular Rhythm, S1/S2 and Murmur
Breast: Deferred by me
GI: Soft, Nontender, Nondistended and Normal Bowel Sounds
Genito-urinary: Costovertebral Angle Tend
Musculoskeletal: No Clubbing, No Cyanosis and No Edema
Neuro: AO x 3 and No Motor Deficits
[2023-07-08] MEDS: NSS IV (11:36)
[2023-07-08] MEDS: INVANZ 60 MG IV (14:56)
--- NOTE | 2023-07-08 15:34 | PTOTSP ---
SPEECH THERAPY SWALLOW EVALUATION:
Patient exhibits grossly functional oropharyngeal swallow at this time. However, patient remains at risk for dysphagia/aspiration should patient experience AMS given current diagnosis of sepsis secondary to UTI. CXR concerning for mild bibasilar
atelectasis and/or pneumonia. WBC currently WNL. Patient exhibiting no signs or symptoms of aspiration at this time. Alert and oriented. Recommend continue Regular texture diet, thin liquids. Meds whole with liquid as best tolerated. Recommend
aspiration precautions including: Supervision/assist as needed with meals; Upright positioning; Small single sips/bites; Slow rate of intake. Speech therapy to follow briefly at the acute care level, assess diet tolerance and modify as appropriate,
monitor CXR and labs, provide continued education regarding aspiration risks/precautions, and provide continued diagnostic swallow therapy as appropriate. Discussed with RN and MD.
RECOMMEND:
1) Regular texture diet, thin liquids
2) Meds whole with liquid as best tolerated
3) Aspiration precautions including: Supervision/assist as needed with meals; Upright positioning; Small single sips/bites; Slow rate of intake
4) Speech therapy to follow briefly at the acute care level
--- NOTE | 2023-07-08 16:33 | CM ---
Reviewed chart, patient was asleep and therefore called patient's nephew, Isaac (number on chart) to obtain information for assessment. Patient lives at [facility]. She uses a walker and a cane to assist with her ambulation. She receives some
assistance with her ADLs and personal care. She has never had VN services. She has been to [facility] in the past
Patient has a prescription plan and uses [facility] on [address] .
Her PCP is Dr. Brunson.
Patient's nephew felt that patient should be able to return home when stable medically for discharge.
OBS letter review with nephew.
Plan: Case management will continue to follow and assist with discharge planning. Tentative plan is for patient to return to [facility].
[2023-07-09] MEDS: LOPRESSOR 25 MG PO (01:34)
[2023-07-09 03:00] VITALS: BP 146/83
--- NOTE | 2023-07-09 03:38 | PTCARENOTE ---
During 2300 VS, PCT alerted this RN that patient's BP 176/100. This RN checked manual BP and resulted at 178/98. ALEXANDER Irizarry notified. Instructed to recheck at 0100. Recheck at 0100 resulted at 180/104. New order rec'd for metoprolol 25mg
PO STAT. Administered per order. BP rechecked about an hour after administration and resulted at 146/83. Call rizzo within reach. Plan of care ongoing.
[2023-07-09 06:00] VITALS: BMI 33.5
[2023-07-09 07:44] VITALS: BP 130/69
[2023-07-09 08:12] LABS: Hematocrit 38.8 % (37.0-47.0); Hemoglobin 13.2 g/dL (12.0-16.0); Mean Corpuscular Hgb 31.1 pg (27.0-31.0); Mean Corpuscular Volume 91.5 fL (81.0-99.0); Mean Platelet Volume 10.9 fL (7.4-10.4); Nucleated Red Blood Cells % 0 %; Platelet Count 103 10^3/uL (130-400); Red Blood Cell Count 4.24 10^6/uL (4.20-5.40); Red Cell Dist. Width 15.9 % (11.5-14.5); White Blood Cell Count 8.2 10^3/uL (4.8-10.8)
[2023-07-09 08:38] LABS: ALT (SGPT) 14 U/L (0-35); AST (SGOT) 22 U/L (14-36); Albumin 3.7 g/dl (3.5-5.0); Alkaline Phosphatase 53 U/L (38-126); Blood Urea Nitrogen 14 mg/dl (7-17); Calcium 8.9 mg/dl (8.4-10.2); Carbon Dioxide 24 mmol/L (22-30); Chloride 100 mmol/L (98-107); Estimated Creatinine Clearance 55 ml/min; Glucose 109 mg/dl (70-99); Potassium 3.5 mmol/L (3.5-5.1); Sodium 133 mmol/L (135-145); Total Bilirubin 0.9 mg/dl (0.2-1.3); Total Protein 6.7 g/dl (6.3-8.2); eGFR > 60.00
[2023-07-09] MEDS: KCL 20 MEQ PO (08:44)
[2023-07-09] MEDS: FOLVITE 1 MG PO (08:44)
[2023-07-09] MEDS: PRAVACHOL 10 MG PO (08:44)
[2023-07-09] MEDS: IMDUR (EXTENDED RELEASE) 60 MG PO (08:44)
[2023-07-09] MEDS: MYRBETRIQ EXTENDED RELEASE 50 MG PO (08:44)
[2023-07-09] MEDS: VITAMIN D3 (cholecalciferol) 50 MCG PO (08:44)
[2023-07-09] MEDS: ASPIR LOW (ENTERIC COATED) 81 MG PO (08:44)
[2023-07-09] MEDS: OSCAL CAL 500 500 MG PO (08:44)
[2023-07-09] MEDS: TOPROL XL 50 MG PO (08:44)
[2023-07-09] MEDS: DESENEX/MITRAZOL/ZEASORB 1 APPLIC TOPICAL ×2 (08:44→20:59)
[2023-07-09] MEDS: HEPARIN 5000 UNITS SC ×2 (08:44→20:55)
[2023-07-09] MEDS: FEOSOL 325 MG PO (08:45)
[2023-07-09 09:16] LABS: Absolute Neutrophils -Man Diff 5.3 10^3/uL (1.4-6.5); Band Neutrophils 0 % (0-3); Segmented Neutrophils 65 % (42-75)
[2023-07-09 09:17] LABS: Anisocytosis Slight; Eosinophils 1 % (0-6); Hypochromasia 1+; Lymphocytes 19 % (20-51); Macrocytosis Slight; Monocytes 15 % (2-9); Normal RBC Morphology No; Platelets Checked Yes; Total Cells Counted 100
--- NOTE | 2023-07-09 09:47 | W.PN.HOSP.TC ---
Today's Communication/Plan
-
await cultures
anticipate d/c tomorrow if all cultures back
Assessment / Plan
Assessment / Plan
pt is an 83 year old female
Sepsis (fever, leukocytosis) secondary to urinary tract infection, culture pending (anticipate back today)--(History of Klebsiella, ESBL E. coli UTI)--WBC now wnl--cont levaquin for now and await culture results --pt with h/o of overactive bladder
on Myrbetriq (maybe not the best med in pt with recurrent UTIs?)
History of interstitial cystitis--may need suppressive ABX therapy indefinitely
Coronary artery disease-Continue aspirin-Continue isosorbide mononitrate-Continue metoprolol
Chronic HFpEF--no exacerbation
Essential hypertension--meds as able
History of renal calculus/staghorn calculus
Hyperlipidemia-Continue statin
thrombocytopenia--chronic
Psoriatic arthritis-Continue methotrexate
DNR/DNI
DVT prophylaxis�heparin
Anticipated Discharge: Within 24 hours
Subjective/Interval History
-
Date of Service: July 09, 2023
pt wants to go back to [facility] not to [facility]
Objective Data
-
Labs:
Laboratory Results
07/09/23
07:46
WBC 8.2
Hgb 13.2
Hct 38.8
Plt Count 103 L
Sodium 133 L
Potassium 3.5
Chloride 100
Carbon Dioxide 24
BUN 14
Creatinine 0.8
Glucose 109 H
Calcium 8.9
Total Bilirubin 0.9
AST 22
ALT 14
Alkaline Phosphatase 53
Vital Signs:
max temp for 24 hours
07/08/23
23:00
Temp 99.3 F
Vital Signs
Temp Pulse Resp BP Pulse Ox
98.8 F 72 16 130/69 95
07/09/23 07:44 07/09/23 07:44 07/09/23 07:44 07/09/23 07:44 07/09/23 07:44
I&O
07/08/23 07/09/23 07/10/23
06:59 06:59 06:59
Intake Total 240 / 240 690 / 690 480 / 480
Balance 240 / 240 690 / 690 480 / 480
Review of Systems
-
All other systems: Reviewed and negative
Physical Exam
-
General: Well Developed, Well Nourished and No Apparent Distress
HEENT: Normocephalic and Atraumatic
Respiratory: Clear to Auscultation; Negative Wheezes or Rhonchi
Cardiac: Regular Rhythm and S1/S2; Negative Murmur
GI: Soft, Nontender, Nondistended and Normal Bowel Sounds
Musculoskeletal: No Clubbing, No Cyanosis and No Edema
Skin: Warm
Neuro: Awake
--- NOTE | 2023-07-09 11:54 | CM ---
Received message fro physician pt would be ready for d/c tomorrow
Spoke with loan servicing representative from [facility] [phone]
Unable to accept pt back without approval [facility] - will be available on Tuesday
PT recommending HH
Physician aware
Plan - return to [facility] - will need HH
[2023-07-09] MEDS: INVANZ 60 MG IV (13:28)
[2023-07-09 15:45] VITALS: BP 112/73
[2023-07-09 23:00] VITALS: BP 116/72
[2023-07-10 06:00] VITALS: BMI 33.3
[2023-07-10 07:00] VITALS: BP 132/71
[2023-07-10 07:52] LABS: Hematocrit 38.9 % (37.0-47.0); Hemoglobin 12.9 g/dL (12.0-16.0); Mean Corp Hgb Conc. 33.2 g/dL (33.0-37.0); Mean Corpuscular Volume 93.5 fL (81.0-99.0); Mean Platelet Volume 10.9 fL (7.4-10.4); Platelet Count 115 10^3/uL (130-400); Red Blood Cell Count 4.16 10^6/uL (4.20-5.40); Red Cell Dist. Width 15.7 % (11.5-14.5); White Blood Cell Count 6.5 10^3/uL (4.8-10.8)
[2023-07-10] MEDS: MYRBETRIQ EXTENDED RELEASE 50 MG PO (07:55)
[2023-07-10] MEDS: VITAMIN D3 (cholecalciferol) 50 MCG PO (07:56)
[2023-07-10] MEDS: PRAVACHOL 10 MG PO (07:56)
[2023-07-10] MEDS: ASPIR LOW (ENTERIC COATED) 81 MG PO (07:56)
[2023-07-10] MEDS: OSCAL CAL 500 500 MG PO (07:56)
[2023-07-10] MEDS: FEOSOL 325 MG PO (07:56)
[2023-07-10] MEDS: TOPROL XL 50 MG PO (07:56)
[2023-07-10] MEDS: HEPARIN 5000 UNITS SC ×2 (07:56→20:31)
[2023-07-10] MEDS: KCL 20 MEQ PO (07:56)
[2023-07-10] MEDS: FOLVITE 1 MG PO (07:56)
[2023-07-10] MEDS: DESENEX/MITRAZOL/ZEASORB 1 APPLIC TOPICAL ×2 (07:56→20:36)
[2023-07-10] MEDS: IMDUR (EXTENDED RELEASE) 60 MG PO (07:56)
[2023-07-10 08:00] VITALS: BP 132/71
[2023-07-10 08:10] LABS: Blood Urea Nitrogen 21 mg/dl (7-17); Calcium 9.1 mg/dl (8.4-10.2); Carbon Dioxide 24 mmol/L (22-30); Chloride 104 mmol/L (98-107); Estimated Creatinine Clearance 44 ml/min; Glucose 106 mg/dl (70-99); Magnesium 2.1 mg/dl (1.6-2.3); Potassium 3.8 mmol/L (3.5-5.1); Sodium 136 mmol/L (135-145)
--- NOTE | 2023-07-10 10:09 | W.PN.HOSP.TC ---
Today's Communication/Plan
-
PT/OT recommend back to [facility] with therapy there
off ABX
appears at baseline
Assessment / Plan
Assessment / Plan
pt is an 83 year old female
Sepsis (fever, leukocytosis) secondary to urinary tract infection?, culture negative--(History of Klebsiella, ESBL E. coli UTI)--WBC now wnl--levaquin stopped --pt with h/o of overactive bladder on Myrbetriq
History of interstitial cystitis--may need suppressive ABX therapy indefinitely
Coronary artery disease-Continue aspirin-Continue isosorbide mononitrate-Continue metoprolol
Chronic HFpEF--no exacerbation
Essential hypertension--meds as able
History of renal calculus/staghorn calculus
Hyperlipidemia-Continue statin
thrombocytopenia--chronic
Psoriatic arthritis-Continue methotrexate
DNR/DNI
DVT prophylaxis�heparin
Anticipated Discharge: Within 24 hours
Subjective/Interval History
-
Date of Service: July 10, 2023
pt wants to go back to [facility] and NOT to rehab
Objective Data
-
Labs:
Laboratory Results
07/10/23
07:32
WBC 6.5
Hgb 12.9
Hct 38.9
Plt Count 115 L
Sodium 136
Potassium 3.8
Chloride 104
Carbon Dioxide 24
BUN 21 H
Creatinine 1.0
Glucose 106 H
Calcium 9.1
Vital Signs:
max temp for 24 hours
07/10/23
07:00
Temp 97.8 F
Vital Signs
Temp Pulse Resp BP Pulse Ox
97.8 F 71 20 132/71 93
07/10/23 07:00 07/10/23 07:00 07/09/23 23:00 07/10/23 07:00 07/10/23 07:00
I&O
07/09/23 07/10/23 07/11/23
06:59 06:59 06:59
Intake Total 690 / 690 1380 / 1380
Balance 690 / 690 1380 / 1380
Review of Systems
-
All other systems: Reviewed and negative
Physical Exam
-
General: Well Developed, Well Nourished and No Apparent Distress
HEENT: Normocephalic and Atraumatic
Respiratory: Clear to Auscultation; Negative Wheezes or Rhonchi
Cardiac: Regular Rhythm and S1/S2; Negative Murmur
GI: Soft, Nontender, Nondistended and Normal Bowel Sounds
Musculoskeletal: No Clubbing, No Cyanosis and No Edema
[2023-07-10 15:00] VITALS: BP 101/60
[2023-07-10] MEDS: INVANZ 60 MG IV (15:13)
[2023-07-10 23:00] VITALS: BP 107/67
[2023-07-11 06:00] VITALS: BMI 33.6
[2023-07-11 07:00] VITALS: BP 125/76
[2023-07-11] MEDS: DESENEX/MITRAZOL/ZEASORB 1 APPLIC TOPICAL ×2 (08:22→21:12)
[2023-07-11] MEDS: MYRBETRIQ EXTENDED RELEASE 50 MG PO (08:24)
[2023-07-11] MEDS: IMDUR (EXTENDED RELEASE) 60 MG PO (08:24)
[2023-07-11] MEDS: KCL 20 MEQ PO (08:24)
[2023-07-11] MEDS: VITAMIN D3 (cholecalciferol) 50 MCG PO (08:25)
[2023-07-11] MEDS: ASPIR LOW (ENTERIC COATED) 81 MG PO (08:25)
[2023-07-11] MEDS: OSCAL CAL 500 500 MG PO (08:25)
[2023-07-11] MEDS: TOPROL XL 50 MG PO (08:25)
[2023-07-11] MEDS: PRAVACHOL 10 MG PO (08:26)
[2023-07-11] MEDS: FOLVITE 1 MG PO (08:26)
[2023-07-11] MEDS: HEPARIN 5000 UNITS SC ×2 (08:26→21:12)
[2023-07-11] MEDS: FEOSOL 325 MG PO (08:27)
--- NOTE | 2023-07-11 10:21 | W.PN.HOSP.TC ---
Addendum entered and electronically signed by Patric Catalan MD 07/11/23 23:27:
Attending Addendum-
I saw and evaluated the patient. I reviewed the resident�s note and agree with findings and plan as documented in the resident�s note. 'I want to go home.' No urinary sxs no hematuria. Full 12 point ROS reviewed and negative except as documented
Exam: Vitals reviewed in chart GEN-NAD heart RRR lungs clear abd soft LE +1 pitting edema no CVA tenderness Plan:
#SIRS (fever, leukocytosis)
- no source of infection found (History of Klebsiella, ESBL E. coli UTI)
- urine cx and blood cx NGTD- DC abx
# History of renal calculus/staghorn calculus
- renal US 07/07-
1. SEVERE RIGHT and MODERATE LEFT CHRONIC RENAL DISEASE.
2. Mild dilatation of the right intrarenal calyces and right renal pelvis without definitive interval change from 01/04/2023.
3. 1.3 cm nonobstructing right lower pole intrarenal calculus.
4. Moderate diffuse urinary bladder wall thickening and trabeculation.
- consult URO for eval
# History of interstitial cystitis--may need suppressive ABX therapy indefinitely
# Coronary artery disease-Continue aspirin-Continue isosorbide mononitrate-Continue metoprolol
# Chronic HFpEF--no exacerbation not on diuretics
# Essential hypertension--cont metoprolol indur
# Hyperlipidemia-Continue pravastatin
# Thrombocytopenia--chronic
# Psoriatic arthritis-Continue methotrexate
DNR/DNI
DVT prophylaxis�heparin
Dispo DC to [facility] in am
Time spent coordinating care, review of plan of care with resident, review of records, med rec, consults, notes, labs, rads, d/w nursing and uro � 55 mins
Original Note:
Today's Communication/Plan
-
Continue current medical management.
Urology consult.
Plan discharge status post urology consult.
Assessment / Plan
Assessment / Plan
Assessment-
83-year-old female with PMHx significant for frequent UTIs, ESBL E. coli positive cultures, interstitial cystitis, nephrolithiasis (staghorn calculus), coronary artery disease, HFpEF, hypertension, psoriatic arthritis on methotrexate presents to the ""hospital for fever, weakness and inability to walk x 1 day and dysuria x 5 days.
Impression-
UTI
Plan-
UTI-
SIRS criteria met on admission-fever and leukocytosis resolved.
Urine analysis positive for UTI but urine cultures are negative for any growth.
Day 4 of Ertapenem
PMHx of staghorn calculus.
Renal and bladder ultrasound-07/08/2023
IMPRESSION:
1. SEVERE RIGHT and MODERATE LEFT CHRONIC RENAL DISEASE.
2. Mild dilatation of the right intrarenal calyces and right renal pelvis without definitive interval change from 01/04/2023.
3. 1.3 cm nonobstructing right lower pole intrarenal calculus.
4. Moderate diffuse urinary bladder wall thickening and trabeculation.
Postvoid residual urinary retention noted. History of overactive bladder. Patient on Myrbetriq.
History of interstitial cystitis - Urology consulted. Inputs appreciated.
CAD, HFpEF, HTN -
continue home medications aspirin, isosorbide mononitrate, metoprolol.
Monitor I's and O's. Monitor weight.
Monitor blood pressure.
Restrict fluid intake to 1800 mL.
Psoriatic arthritis-
Methotrexate on hold.
Hyperlipidemia-
continue statin
DVT prophylaxis
Heparin
CODE STATUS
DNR
Anticipated Discharge: Within 24 hours
Subjective/Interval History
-
Date of Service: July 11, 2023
Patient reports that her burning micturition resolved.
Objective Data
-
Vital Signs:
Vital Signs
Temp Pulse Resp BP Pulse Ox
97.5 F 67 17 125/76 97
07/11/23 07:00 07/11/23 07:00 07/11/23 07:00 07/11/23 07:00 07/11/23 07:55
I&O
07/10/23 07/11/23 07/12/23
06:59 06:59 06:59
Intake Total 1380 / 1380 1020 / 1020
Balance 1380 / 1380 1020 / 1020
Review of Systems
-
History Source: Patient
Constitutional: Reports No Symptoms
Respiratory: Reports No Symptoms
Cardiac: Reports No Symptoms
Abdomen/GI: Reports No Symptoms
Genitourinary: Reports No Symptoms
Musculoskeletal: Reports No Symptoms
Skin: Reports No Symptoms
Neuro: Reports No Symptoms
Hematologic / Lymphatic: Reports No Symptoms
Physical Exam
-
General: Comfortable (Appearing on room air.)
HEENT: Normocephalic, Atraumatic and Moist Mucous Membranes
Respiratory: Clear to Auscultation (No wheezes, rales, rhonchi)
Cardiac: Regular Rhythm, S1/S2 and Other (No murmurs, rubs, gallops.)
GI: Soft, Nontender, Nondistended and Normal Bowel Sounds
Genito-urinary: No Costovertebral Tender
Musculoskeletal: No Edema
Skin: Warm
Neuro: AO x 3 and No Motor Deficits
--- NOTE | 2023-07-11 10:44 | CM ---
Reviewed notes from weekend. Patient was unable to return to facility due to there being no DON on the weekend. Placed a call to [facility] and spoke with the DON, Gabriela, who stated that she can accept patient back today. Made her aware that patient
will need a VN. She stated that they contract with [facility]. Will send referral. She stated that no report needs to be provided by RN. Reviewed notes with Gabriela and current level of functioning in PT. Gabriela stated to fax all information, meds,
discharge summary to, . Gabriela stated that they do not have RNs after 16:00 so asked that transport be set up well before then.
Spoke with attending who stated that he will review patient and if medically appropriate put in discharge order.
Referral made to [facility] (The VN agency that contracts with [facility]).
director updated as to plan.
Plan: Case management will continue to follow and assist with discharge planning. Patient would like to return back to [facility].
[2023-07-11 13:06] LABS: Glycohemoglobin (HgbA1c) 6.6 % (4.0-5.6)
[2023-07-11] MEDS: INVANZ 60 MG IV (13:23)
[2023-07-11 15:00] VITALS: BP 133/73
--- NOTE | 2023-07-11 17:57 | W.DCSUMMARY ---
Addendum entered and electronically signed by Patric Catalan MD 07/12/23 22:35:
Attending Addendum:
Read reviewed and agree. See same day progress note for additional details.
Simeon Catalan MD
Original Note:
Documented by User: Marianne Ojeda MD, Resident 07/12/23 13:01
Discharge Summary
Discharge Data
Date of Admission: 07/07/23
Date of Discharge: 07/12/23
-
Pending Results: No
Hospital Course
Assessment-
83-year-old female with PMHx significant for frequent UTIs, ESBL E. coli positive cultures, interstitial cystitis, nephrolithiasis (staghorn calculus), coronary artery disease, HFpEF, hypertension, psoriatic arthritis on methotrexate presents to the ""hospital for fever, weakness and inability to walk x 1 day and dysuria x 5 days.
Impression-
UTI
Hospital course-
Upon admission patient was found to have SIRS criteria (leukocytosis, fever) and was given IV fluid bolus and and was started on Levaquin antibiotic. Her urine analysis was positive for UTI and patient was discontinued Levaquin and was started on
ertapenem, was given for 3 days. Her urine cultures and blood cultures were negative. Her leukocytosis resolved by day 2, her fever subsided. A renal and bladder ultrasound was obtained to evaluate the reason for recurrent UTIs bacteremia as the
patient was admitted in May for ESBL E. coli and Klebsiella UTI, bacteremia. Renal ultrasound showed renal calculi and urinary bladder. Diffuse thickening. Urology was consulted and patient was advised to follow-up within 1 week with urology on
outpatient basis.
CAD, HFpEF, hypertension, hyperlipidemia were treated with her home medication regimen - aspirin, isosorbide mononitrate, metoprolol, statin. And for her psoriatic arthritis on methotrexate was put on hold as methotrexate can cause possible
immunosuppression leading to chronic infections.
Newly diagnosed type 2 DM, diet controlled, HbA1C - 6.6.
DVT prophylaxis was done with heparin.
Investigations-
Renal ultrasound-
IMPRESSION:
1. SEVERE RIGHT and MODERATE LEFT CHRONIC RENAL DISEASE.
2. Mild dilatation of the right intrarenal calyces and right renal pelvis without definitive interval change from 01/04/2023.
3. 1.3 cm nonobstructing right lower pole intrarenal calculus.
4. Moderate diffuse urinary bladder wall thickening and trabeculation.
Chest x-ray-
IMPRESSION:
Mild bibasilar atelectasis and/or pneumonia.
recommendations for discharge-
Follow-up with primary care within 1 week.
Follow-up with urology within 1 week.
Discharge Plan
-
Patient Disposition: Assisted Living
Discharge Diagnosis/Procedures: Sepsis thought to be due to urinary tract infection, interstitial cystitis, coronary artery disease, chronic diastolic congestive heart failure without exacerbation, essential hypertension, history of renal calculus
and staghorn stones, hyperlipidemia, chronic thrombocytopenia, psoriatic arthritis
Condition: Good
Diet: As tolerated and Low Fat
Activity: As tolerated
Driving Restrictions: No driving
Bathing Restrictions: None
Other Services: VN, PT and OT
Referrals:
Marcos Brunson MD [Family Provider] - in less than 1 week
Ruben Hodgson MD [Active] - in less than 1 week
Prescriptions:
New
miconazole nitrate [Miconazorb AF] 2 % Powder
60 applic topical BID 30 Days Qty: 2 0RF
Continued
isosorbide mononitrate 60 MG tablet extended release 24 hr
60 mg PO DAILY
pravastatin 10 MG tablet
10 mg PO DAILY
methotrexate sodium 2.5 MG tablet
15 mg PO SA
metoprolol succinate 50 MG tablet extended release 24 hr
50 mg PO DAILY
aspirin 81 MG tablet,delayed release (DR/EC)
81 mg PO DAILY
potassium chloride [Klor-Con M20] 20 MEQ tablet,ER particles/crystals
20 meq PO DAILY
ferrous sulfate [iron] 325 mg (65 mg iron) Tablet
325 mg PO DAILY
folic acid 1 mg Tablet
1 mg PO DAILY
cholecalciferol (vitamin D3) [Vitamin D3] 50 mcg (2,000 unit) Capsule
50 mcg PO DAILY
calcium carbonate 500 mg calcium (1,250 mg) Tablet
500 mg PO DAILY
acetaminophen 325 mg Tablet
650 mg PO Q6H PRN (Reason: mild pain/fever)
mirabegron [Myrbetriq] 50 mg tablet extended release 24 hr
50 mg PO DAILY
nitroglycerin [Nitrostat] 0.4 mg Tablet, Sublingual
0.4 mg SUBLINGUAL [id number] PRN (Reason: chest pain)
Discharge Orders:
Discharge Patient (As Directed); Ordered 07/12/23
Ordered By: Marianne Ojeda
Discharge Date and Time
Discharge Date/Time: 07/12/23 16:02
Print Language: MEXICAN

Documented by User: Patric Catalan MD 07/12/23 22:33
Discharge Summary
Discharge Data
Date of Admission: 07/07/23
Date of Discharge: 07/12/23
Discharge Plan
-
Patient Disposition: Assisted Living
Discharge Diagnosis/Procedures: Sepsis thought to be due to urinary tract infection, interstitial cystitis, coronary artery disease, chronic diastolic congestive heart failure without exacerbation, essential hypertension, history of renal calculus
and staghorn stones, hyperlipidemia, chronic thrombocytopenia, psoriatic arthritis
Condition: Good
Diet: As tolerated and Low Fat
Activity: As tolerated
Driving Restrictions: No driving
Bathing Restrictions: None
Other Services: VN, PT and OT
Referrals:
Marcos Brunson MD [Family Provider] - in less than 1 week
Ruben Hodgson MD [Active] - in less than 1 week
Prescriptions:
New
miconazole nitrate [Miconazorb AF] 2 % Powder
60 applic topical BID 30 Days Qty: 2 0RF
Continued
isosorbide mononitrate 60 MG tablet extended release 24 hr
60 mg PO DAILY
pravastatin 10 MG tablet
10 mg PO DAILY
methotrexate sodium 2.5 MG tablet
15 mg PO SA
metoprolol succinate 50 MG tablet extended release 24 hr
50 mg PO DAILY
aspirin 81 MG tablet,delayed release (DR/EC)
81 mg PO DAILY
potassium chloride [Klor-Con M20] 20 MEQ tablet,ER particles/crystals
20 meq PO DAILY
ferrous sulfate [iron] 325 mg (65 mg iron) Tablet
325 mg PO DAILY
folic acid 1 mg Tablet
1 mg PO DAILY
cholecalciferol (vitamin D3) [Vitamin D3] 50 mcg (2,000 unit) Capsule
50 mcg PO DAILY
calcium carbonate 500 mg calcium (1,250 mg) Tablet
500 mg PO DAILY
acetaminophen 325 mg Tablet
650 mg PO Q6H PRN (Reason: mild pain/fever)
mirabegron [Myrbetriq] 50 mg tablet extended release 24 hr
50 mg PO DAILY
nitroglycerin [Nitrostat] 0.4 mg Tablet, Sublingual
0.4 mg SUBLINGUAL [id number] PRN (Reason: chest pain)
Discharge Orders:
Discharge Patient (As Directed); Ordered 07/12/23
Ordered By: Marianne Ojeda
Discharge Date and Time
Discharge Date/Time: 07/12/23 16:02
Print Language: MEXICAN
[2023-07-11 23:00] VITALS: BP 150/71
[2023-07-12 06:00] VITALS: BMI 33.4
[2023-07-12 06:41] LABS: Hematocrit 37.2 % (37.0-47.0); Hemoglobin 12.1 g/dL (12.0-16.0); Mean Corp Hgb Conc. 32.5 g/dL (33.0-37.0); Mean Corpuscular Volume 95.4 fL (81.0-99.0); Mean Platelet Volume 10.7 fL (7.4-10.4); Platelet Count 138 10^3/uL (130-400); Red Cell Dist. Width 15.9 % (11.5-14.5)
[2023-07-12 07:00] VITALS: BP 125/79
[2023-07-12 07:18] LABS: Blood Urea Nitrogen 21 mg/dl (7-17); Calcium 9.6 mg/dl (8.4-10.2); Carbon Dioxide 24 mmol/L (22-30); Chloride 107 mmol/L (98-107); Estimated Creatinine Clearance 44 ml/min; Glucose 94 mg/dl (70-99); Potassium 4.4 mmol/L (3.5-5.1); Sodium 140 mmol/L (135-145)
[2023-07-12] MEDS: KCL 20 MEQ PO (07:54)
[2023-07-12] MEDS: PRAVACHOL 10 MG PO (07:54)
[2023-07-12] MEDS: TOPROL XL 50 MG PO (07:54)
[2023-07-12] MEDS: VITAMIN D3 (cholecalciferol) 50 MCG PO (07:54)
[2023-07-12] MEDS: OSCAL CAL 500 500 MG PO (07:54)
[2023-07-12] MEDS: ASPIR LOW (ENTERIC COATED) 81 MG PO (07:54)
[2023-07-12] MEDS: IMDUR (EXTENDED RELEASE) 60 MG PO (07:54)
[2023-07-12] MEDS: FOLVITE 1 MG PO (07:54)
[2023-07-12] MEDS: MYRBETRIQ EXTENDED RELEASE 50 MG PO (07:54)
[2023-07-12] MEDS: HEPARIN 5000 UNITS SC (07:55)
[2023-07-12] MEDS: FEOSOL 325 MG PO (07:55)
[2023-07-12] MEDS: DESENEX/MITRAZOL/ZEASORB 1 APPLIC TOPICAL (08:01)
--- NOTE | 2023-07-12 09:38 | W.PN.HOSP.TC ---
Addendum entered and electronically signed by Patric Catalan MD 07/12/23 22:34:
Attending Addendum-
I saw and evaluated the patient. I reviewed the resident�s note and agree with findings and plan as documented in the resident�s note. no complaints, ready to go home. No urinary sxs no hematuria. Full 12 point ROS reviewed and negative except as
documented Exam: Vitals reviewed in chart GEN-NAD heart RRR lungs clear abd soft LE +1 pitting edema no CVA tenderness Plan:
#SIRS (fever, leukocytosis)
- no source of infection found (History of Klebsiella, ESBL E. coli UTI)
- urine cx and blood cx NGTD- DC'd abx
# History of renal calculus/staghorn calculus
- renal US 07/07-
1. SEVERE RIGHT and MODERATE LEFT CHRONIC RENAL DISEASE.
2. Mild dilatation of the right intrarenal calyces and right renal pelvis without definitive interval change from 01/04/2023.
3. 1.3 cm nonobstructing right lower pole intrarenal calculus.
4. Moderate diffuse urinary bladder wall thickening and trabeculation.
- f/u uro as OP Dr. Gokul ramos provided
# History of interstitial cystitis--may need suppressive ABX therapy indefinitely f/u uro a OP
# Coronary artery disease-Continue aspirin-Continue isosorbide mononitrate-Continue metoprolol
# Chronic HFpEF--no exacerbation not on diuretics
# Essential hypertension--cont metoprolol indur
# Hyperlipidemia-Continue pravastatin
# Thrombocytopenia--chronic
# Psoriatic arthritis-Continue methotrexate
DNR/DNI
DVT prophylaxis�heparin
Dispo DC to [facility] with
Time spent coordinating care, review of plan of care with resident, review of records, med rec, DC planning, consults, notes, labs, rads, d/w nursing CM � 35 mins
Original Note:
Today's Communication/Plan
-
Plan for discharge.
Assessment / Plan
Assessment / Plan
Assessment-
83-year-old female with PMHx significant for frequent UTIs, ESBL E. coli positive cultures, interstitial cystitis, nephrolithiasis (staghorn calculus), coronary artery disease, HFpEF, hypertension, psoriatic arthritis on methotrexate presents to the ""hospital for fever, weakness and inability to walk x 1 day and dysuria x 5 days.
Impression-
UTI
Plan-
UTI-
SIRS criteria met on admission-fever and leukocytosis resolved.
Urine analysis positive for UTI but urine cultures are negative for any growth.
Day 4 of Ertapenem
PMHx of staghorn calculus.
Renal and bladder ultrasound-07/08/2023
IMPRESSION:
1. SEVERE RIGHT and MODERATE LEFT CHRONIC RENAL DISEASE.
2. Mild dilatation of the right intrarenal calyces and right renal pelvis without definitive interval change from 01/04/2023.
3. 1.3 cm nonobstructing right lower pole intrarenal calculus.
4. Moderate diffuse urinary bladder wall thickening and trabeculation.
Postvoid residual urinary retention noted. History of overactive bladder. Patient on Myrbetriq.
History of interstitial cystitis - Urology consulted. Inputs appreciated.
Follow-up with urology within 1 week on outpatient basis.
Type 2 diabetes mellitus, diet controlled.
HbA1c at 6.6.
Advised that the patient to follow-up with primary care.
CAD, HFpEF, HTN -
continue home medications aspirin, isosorbide mononitrate, metoprolol.
Monitor I's and O's. Monitor weight.
Monitor blood pressure.
Restrict fluid intake to 1800 mL.
Psoriatic arthritis-
Methotrexate on hold.
Hyperlipidemia-
continue statin
DVT prophylaxis
Heparin
CODE STATUS
DNR
Anticipated Discharge: Today
Subjective/Interval History
-
Date of Service: July 12, 2023
No complaints overnight.
Objective Data
-
Labs:
Laboratory Results
07/12/23
06:15
WBC 5.0
Hgb 12.1
Hct 37.2
Plt Count 138
Sodium 140
Potassium 4.4
Chloride 107
Carbon Dioxide 24
BUN 21 H
Creatinine 1.0
Glucose 94
Calcium 9.6
Vital Signs:
Vital Signs
Temp Pulse Resp BP Pulse Ox
98.2 F 72 18 125/79 95
07/12/23 07:00 07/12/23 07:54 07/12/23 07:00 07/12/23 07:54 07/12/23 07:00
I&O
07/11/23 07/12/23 07/13/23
06:59 06:59 06:59
Intake Total 1020 / 1020 1100 / 1100
Balance 1020 / 1020 1100 / 1100
Review of Systems
-
History Source: Patient
Constitutional: Reports No Symptoms
Respiratory: Reports No Symptoms
Cardiac: Reports No Symptoms
Abdomen/GI: Reports No Symptoms
Genitourinary: Reports No Symptoms
Neuro: Reports No Symptoms
Endocrine: Reports No Symptoms
Hematologic / Lymphatic: Reports No Symptoms
Physical Exam
-
General: Well Developed, Well Nourished and No Apparent Distress
HEENT: Normocephalic, Atraumatic and Moist Mucous Membranes
Respiratory: Clear to Auscultation (No wheezes, rales, rhonchi)
Cardiac: Regular Rhythm, S1/S2 and Other (No murmurs, rubs, gallops)
GI: Soft, Nontender, Nondistended and Normal Bowel Sounds
Genito-urinary: No Costovertebral Tender
Musculoskeletal: Other (1+ pitting edema present)
Neuro: AO x 3 and No Motor Deficits
[2023-07-12 12:50] VITALS: BP 143/88; PULSE 68; O2SAT 95
--- NOTE | 2023-07-12 15:29 | CM ---
Addendum entered by IRLANDA Hoskins 07/12/23 15:47:
Received return call from [facility] who stated that they would be unable to take patient back today as there are no RNs after 17:00. She stated that she can take patient first thing in the am. #for report is [phone] ask for patient's RN. Fax in
previous note.
Original Note:
Placed a call to [facility] and provided explanation to healthcare receptionist that their resident is medically cleared and needs to return. Call was transferred to [facility] but there was no answer just voice mail. Placed another call to healthcare receptionist and
advised her that it is urgent as patient is discharged. Real Estate Administrator, Renetta, stated that she could transfer call to Sophie, but she was unsure of whether Sophie was in the office today. Request was made again to be transferred to [facility]'s voice mail.
Left a detailed message that patient is being discharged today and confirmation needs to be obtained that they can take patient back. Thus far, have not received return call.
Plan: Case management will continue to follow and assist with discharge planning. Stable for transfer back to [facility] Awaiting return call from [facility].
[2023-07-12 15:30] VITALS: BP 110/68
== END 2023-07-12 16:02 | disposition home or self-care (01) ==
LOC: 3 WEST ACU 23:59
PROVIDERS: Emergency Medicine; Internal Medicine; Student in an Organized Health Care Education/Training Program; ADMITTING PHYSICIAN Hospitalist; ATTENDING PHYSICIAN Family Medicine; EMERGENCY PHYSICIAN Emergency Medicine; FAMILY PHYSICIAN Internal Medicine Geriatric Medicine
DX: A41.9 Sepsis, unspecified organism (principal); N39.0 Urinary tract infection, site not specified; R50.9 Fever, unspecified; R53.1 Weakness; R30.0 Dysuria; I25.10 Atherosclerotic heart disease of native coronary artery without angina pectoris; I50.32 Chronic diastolic (congestive) heart failure; R41.82 Altered mental status, unspecified; E78.5 Hyperlipidemia, unspecified; L40.50 Arthropathic psoriasis, unspecified; D69.6 Thrombocytopenia, unspecified; I11.0 Hypertensive heart disease with heart failure; J98.11 Atelectasis; R32 Unspecified urinary incontinence; N20.0 Calculus of kidney; N32.81 Overactive bladder; D84.821 Immunodeficiency due to drugs; R26.2 Difficulty in walking, not elsewhere classified; Z88.1 Allergy status to other antibiotic agents; Z91.048 Other nonmedicinal substance allergy status; Z87.442 Personal history of urinary calculi; Z87.440 Personal history of urinary (tract) infections; Z88.0 Allergy status to penicillin; Z79.82 Long term (current) use of aspirin; Z66 Do not resuscitate; Z79.631 Long term (current) use of antimetabolite agent
CPT/HCPCS: 71046; 76770; 80048; 80053; 81003; 81015; 83036; 83605; 83690; 83735; 85025; 85027; 87040; 87070; 87086; 92610; 93005; 96365; 97116; 97162; 97166; 99285; G0378; J1335

== ENCOUNTER 2023-07-14 16:32 | Inpatient (IN) | payer MEDICARE, BC, SELFPAY ==
[2023-07-13 16:44] VITALS: BMI 34.3
[2023-07-13 16:49] VITALS: BP 140/73
[2023-07-13 17:00] VITALS: BP 129/72
[2023-07-13 18:00] VITALS: BP 105/77
--- NOTE | 2023-07-13 19:15 | ED.GENMED ---
History of Present Illness
General
Chief Complaint: Fall
Source: patient
Exam Limitations: none
Time Seen by Provider: 07/13/23 16:45
Nursing documentation reviewed up to this point in time: agreed with
Travel History
Have you had any contact with someone who has COVID-19?: Unable to Answer
Do you have any symptoms of coronavirus? Fever > 100 degrees, chills, cough, shortness of breath, sore throat, loss of taste or smell, muscle aches, or headache?: Unable to Answer
History of Present Illness
History of Present Illness:
83-year-old female with a past medical history as documented who presents to the emergency room from [facility] where she lives in personal-care/assisted living for evaluation of knee pain after a fall. Of note patient was recently admitted to
[facility] 07/07/2023 until 07/12/2023 for she was treated for sepsis secondary to pneumonia. She was discharged back to her apartment with visiting nurse as well as visiting PT and OT. This morning patient says that she was trying to get out of
bed and she slipped and fell onto her bottom and injured her right knee. Staff was able to help her up but she has been having trouble walking around (uses a rollator at baseline) and so she was sent to the emergency room to be assessed. She
complains of pain in the anterior right knee. She has noticed some swelling. She denies any other specific complaints. She denies any head trauma or headache. Denies any neck pain. Denies any back pain. Denies any chest or abdominal pain. She
denies any pain in her upper extremities. She is on aspirin but no other blood thinners.
Past History
Past History
ED Past Medical History: CAD, CHF, HTN and Other (Renal calculi)
ED Past Surgical History: Cardiac
Social History
Tobacco: Non-smoker
Alcohol: None
Drug: None
Personal:
Living: assisted living
Employment: Retired
Review of Systems
Review of Systems
All Other Systems: ROS reviewed and negative except as documented in HPI and ROS
Constitutional: Reports fatigue; Denies fever or chills
EENT: Denies sore throat or runny nose
Respiratory: Denies trouble breathing
Cardiac: Denies chest pain
ABD/GI: Denies abdominal pain
: Denies flank pain
Musculoskeletal: Reports joint pain (Knee pain) and joint swelling; Denies neck pain or back pain
Neurological: Denies headache
Phy Exam
Physical Exam
Physical Exam:
General: Awake, alert, oriented x3; no acute distress
Head: Normocephalic, atraumatic
Eyes: Conjunctiva normal
Throat: Airway intact, handling secretions
Neck: Trachea midline, no cervical spine tenderness
Back: No signs of trauma to the back or flank and no tenderness in the thoracic or lumbar spine or in the posterior ribs
Lungs: Clear to auscultation bilaterally, no wheezing, rales, rhonchi
Heart: Regular rate and rhythm, no murmurs, gallops, or rubs; no chest wall tenderness
Abd: Soft, non distended, nontender
Neuro: Cranial nerves grossly intact, speech fluid
Skin: no rash
Extremities: Patient has mild swelling of the right knee and has significant tenderness to the patella and pain with manipulation of patella; she has no significant joint line tenderness; she has significant pain with attempted passive range of
motion of the right knee; she has no significant pain on range of motion in the left knee; she has no pain on internal/external rotation of the hips bilaterally; she has good distal pulses including specifically a strong right DP pulse
Scores
Heart Failure Risk
Heart Failure Risk Score: Not Applicable
Heart Score for Chest Pain Patients
STEMI patient?: Not applicable
Withdrawal Assessment of Alcohol
Withdrawal Assessment Completed?: Not applicable
Course
Orders/Labs/Results
Orders:
Orders
07/13/23 17:46
CT Head W/o Iv Contrast Urgent
Comment:
Reason For Exam: unwitnessed fall
CR Knee- Right 4 Or More View* Urgent
Comment:
Reason For Exam: right knee pain s/p fall
Vital Signs
Initial and Last Documented VS:
Initial Vital Signs
Temp Pulse Resp BP Pulse Ox
37.4 C 78 24 140/73 95
07/13/23 16:49 07/13/23 16:49 07/13/23 16:49 07/13/23 16:49 07/13/23 16:49
Last Documented Vital Signs
Temp Pulse Resp BP Pulse Ox
37.4 C 76 20 105/77 94
07/13/23 16:49 07/13/23 18:00 07/13/23 18:00 07/13/23 18:00 07/13/23 17:30
MDM/Problems Addressed
Differential Diagnosis Includes:
Internal derangement of the knee such as ligamentous tear, meniscal injury; dislocation, patellar dislocation; tendon injury such as quadriceps or patellar tendon injury; fracture
MDM/Problems Addressed:
83-year-old female presents for evaluation of knee injury after minor fall. She was just hospitalized for sepsis from a UTI. Her vital signs are normal here. Exam as above. Will send for an x-ray of the knee. Will check CT head in an abundance
of caution given her age and the fact that the fall was unwitnessed. Will monitor closely reassess after the above.
X-ray of the knee reviewed by me shows total knee replacement with hardware intact, no clear periprosthetic fracture, patella appears appropriate position with no clear fracture. Patient still having significant difficulty moving knee through range
of motion and not able to bear weight at all. Will need outpatient orthopedic follow-up but will be unable to perform her normal ADLs and assisted living with her current functional status. Will place order for physical therapy evaluation here and
case management consultation for placement. Will admit pending appropriate placement. Discussed with hospitalist.
*Radiology
Radiology exam reviewed: preliminary read by ED provider and radiology read reviewed
*Pulse Oximetry
Patient hypoxic: no
*Critical Care Note
Total Time (30-74mins, 75-104mins- exclusive of procedures): Not Applicable
Data Reviewed
Source: patient, records and family
Patient Management
Social determinants of health affecting care: Living situation
Discussion with other providers: Hospitalist (Discussed with hospitalist)
Escalation/DeEscalation of care consider admission/obs:
Admission indicated
ED Attending Note
-
Portions of this chart may have been created with voice recognition software.� Occasional wrong word or��sound alike� substitutions may have occurred due to the inherent limitations of voice recognition software.
Discharge Plan
Departure
Admit to doctor: Dandy
Presentation/result/management discussed w/ accepting MD/DO: Hospitalist
Discharge Problem:
Injury of knee, right
Prescriptions:
No Action
isosorbide mononitrate 60 MG tablet extended release 24 hr
60 mg PO DAILY
pravastatin 10 MG tablet
10 mg PO DAILY
methotrexate sodium 2.5 MG tablet
15 mg PO SA
metoprolol succinate 50 MG tablet extended release 24 hr
50 mg PO DAILY
aspirin 81 MG tablet,delayed release (DR/EC)
81 mg PO DAILY
potassium chloride [Klor-Con M20] 20 MEQ tablet,ER particles/crystals
20 meq PO DAILY
ferrous sulfate [iron] 325 mg (65 mg iron) Tablet
325 mg PO DAILY
folic acid 1 mg Tablet
1 mg PO DAILY
cholecalciferol (vitamin D3) [Vitamin D3] 50 mcg (2,000 unit) Capsule
50 mcg PO DAILY
calcium carbonate 500 mg calcium (1,250 mg) Tablet
500 mg PO DAILY
acetaminophen 325 mg Tablet
650 mg PO Q6H PRN (Reason: mild pain/fever)
mirabegron [Myrbetriq] 50 mg tablet extended release 24 hr
50 mg PO DAILY
nitroglycerin [Nitrostat] 0.4 mg Tablet, Sublingual
0.4 mg SUBLINGUAL [id number] PRN (Reason: chest pain)
miconazole nitrate [Miconazorb AF] 2 % Powder
60 applic topical BID 30 Days Qty: 2 0RF
Referrals:
Marcos Brunson MD [Family Provider] -
Interventions
Interventions:
*Risk Screen - Suicide Last Done: 07/13/23 16:57
*General Assessment Last Done: 07/13/23 16:57
*Neglect/Abuse Screening Last Done: 07/13/23 16:58
*ED COVID-19 Vaccine History Last Done: 07/13/23 16:57
ED-Musculoskeletal Assessment Last Done: 07/13/23 18:26
ED- Neurological Assessment Last Done: 07/13/23 16:58
ED-Skin Assessment Last Done: 07/13/23 16:59
Discharge Date and Time
Print Language: [place]
[2023-07-13] MEDS: TYLENOL 1000 MG PO (19:42)
--- NOTE | 2023-07-13 19:51 | HPS.HSE ---
Family Physician
-
Family Physician: Marcos Brunson
Chief Complaint
-
Fall with R knee pain
History of Present Illness
HPI: 83-year-old female with past medical history frequent UTIs, interstitial cystitis, nephrolithiasis (staghorn calculus), coronary artery disease, HFpEF, hypertension, psoriatic arthritis on methotrexate; p/w R knee pain after a fall today.
Of note, patient was recently admitted 07/07/2023 to 07/12/2023 for SIRS likely due to UTI. She was discharged back to [facility] (personal-care/assisted living). In the morning, pt was trying to get out of bed and she slipped and fell onto her
bottom and injured her right knee. Staff helped her up but she has trouble walking around since (uses a rollator at baseline). She was sent to the emergency room to be assessed.
She is on aspirin but no other blood thinners.
Medical History
Past Medical History
Past Medical History: Reports Other (frequent UTIs, ESBL E. coli UTI, interstitial cystitis, coronary artery disease, chronic HFpEF, hypertension, renal calculus/staghorn calculus, hyperlipidemia, psoriatic arthritis)
Past Surgical History: Reports None
Social History
Tobacco: Non-smoker
Alcohol: None
Drug: None
Family History
Family History: Not pertinent
Allergies / Home Medications
Allergies reflects when Allergies were last updated in [employer].
Home Medications with original date entered in [employer]
Allergy/Medication List:
Allergies
Allergy/AdvReac Type Severity Reaction Status Date / Time
adhesive Allergy bleeding, Verified 07/07/23 18:20
reddness,
rash
amoxicillin Allergy Unknown, Verified 07/07/23 18:20
Tolerates
cephalosporins
scallops Allergy Unknown Verified 07/07/23 18:20
Home Medications
isosorbide mononitrate 60 mg tablet,extended release 24 hr 60 mg PO DAILY Heart disease/condition 05/05/21
methotrexate sodium 2.5 mg tablet 15 mg PO SA arthritis 05/05/21
pravastatin 10 mg tablet 10 mg PO DAILY High cholesterol 05/05/21
aspirin 81 mg tablet,delayed release 81 mg PO DAILY Blood clot prevention/tx 08/11/21
metoprolol succinate 50 mg tablet,extended release 24 hr 50 mg PO DAILY Blood pressure 08/11/21
potassium chloride 20 mEq tablet,extended release(part/cryst) (Klor-Con M) 20 meq PO DAILY Electrolyte Repletion 08/11/21
calcium carbonate 500 mg PO DAILY Supplement 06/06/22
cholecalciferol (vitamin D3) 50 mcg (2,000 unit) capsule (Vitamin D3) 50 mcg PO DAILY Supplement 06/06/22
ferrous sulfate 325 mg (65 mg iron) tablet (iron) 325 mg PO DAILY Supplement 06/06/22
folic acid 1 mg tablet 1 mg PO DAILY Supplement 06/06/22
acetaminophen 325 mg tablet 650 mg PO Q6H PRN mild pain/fever 05/29/23
mirabegron 50 mg tablet,extended release 24 hr (Myrbetriq) 50 mg PO DAILY 05/29/23
nitroglycerin 0.4 mg sublingual tablet (Nitrostat) 0.4 mg sublingual [id number] PRN chest pain 07/07/23
Review of Systems
-
Musculoskeletal: Reports See HPI and Joint Pain (R knee)
Physical Exam
Vital Signs
Vital Signs
Temp Pulse Resp BP Pulse Ox
37.4 C 76 20 105/77 94
07/13/23 16:49 07/13/23 18:00 07/13/23 18:00 07/13/23 18:00 07/13/23 17:30
Physical Exam
General: Well Developed, Well Nourished, No Apparent Distress, Comfortable and Conversant
HEENT: NormoCephalic, Moist mucous membranes and Atraumatic
Respiratory: Clear and Non Labored Respirations; No Accessory Resp Muscle Use
Cardiac: S1/S2 and Regular Rhythm; No Murmur or Rub
GI: Soft, Non Tender, Non Distended and Normal Bowel Sounds; No Organomegaly
Rectal: Deferred by Provider
Musculoskeletal: Other (R knee in brace)
Skin: No Rash
Neuro: Awake
Psych: Calm and Intact Judgment/Insight (somewhat)
Data Reviewed
-
Diagnostic Radiology: Report Reviewed by me
Lab Data: Labs Reviewed by me
Impression/Plan
-
HPI: 83-year-old female with past medical history frequent UTIs, interstitial cystitis, nephrolithiasis (staghorn calculus), coronary artery disease, HFpEF, hypertension, psoriatic arthritis on methotrexate; p/w R knee pain after a fall today.
Of note, patient was recently admitted 07/07/2023 to 07/12/2023 for SIRS likely due to UTI. She was discharged back to [facility] (personal-care/assisted living). In the morning, pt was trying to get out of bed and she slipped and fell onto her
bottom and injured her right knee. Staff helped her up but she has trouble walking around since (uses a rollator at baseline). She was sent to the emergency room to be assessed.
She is on aspirin but no other blood thinners.
She complains of pain in the anterior right knee. She has noticed some swelling.
She denies to other symptoms, no head trauma/headache, CP, SOB, Abd pain etc.
R knee XR:
Right knee arthroplasty in position.
No findings to confirm recent fracture.
A/P:
# R knee pain from mechanical fall
X-ray unrevealing
Check MRI right knee
consider ortho eval after MRI for weight bearing status recc
PT OT eval, patient would likely need SNF
# Recent admission for SIRS/UTI
Received antibiotic short course
# History of interstitial cystitis
# History of renal calculus/staghorn calculus
# Coronary artery disease
# Chronic HFpEF
# Essential hypertension
Continue aspirin, isosorbide mononitrate, metoprolol
# Hyperlipidemia
Statin
# thrombocytopenia, chronic
# Psoriatic arthritis
Continue methotrexate
DNR/DNI
DVT prophylaxis� Lovenox SQ
[2023-07-13 19:57] LABS: % Basophils 0.4 % (0-2); % Eosinophils 2.2 % (0-6); % Immature Granulocytes 0.4 % (0-0.5); % Lymphocytes 14.9 % (20.5-51.1); % Monocytes 17.2 % (1.7-9.3); % Neutrophils 64.9 % (42.2-75.2); Absolute Eosinophils 0.2 10^3/uL (0-0.7); Absolute Lymphocytes 1.2 10^3/uL (1.2-3.4); Absolute Monocytes 1.4 10^3/uL (0.1-0.6); Absolute Neutrophils 5.1 10^3/uL (1.4-6.5); Hematocrit 36.7 % (37.0-47.0); Hemoglobin 12.3 g/dL (12.0-16.0); Mean Corp Hgb Conc. 33.5 g/dL (33.0-37.0); Mean Corpuscular Hgb 31.3 pg (27.0-31.0); Mean Corpuscular Volume 93.4 fL (81.0-99.0); Nucleated Red Blood Cells % 0 %; Platelet Count 167 10^3/uL (130-400); Red Blood Cell Count 3.93 10^6/uL (4.20-5.40); Red Cell Dist. Width 15.8 % (11.5-14.5); White Blood Cell Count 7.9 10^3/uL (4.8-10.8)
[2023-07-13 20:10] LABS: ALT (SGPT) 15 U/L (0-35); AST (SGOT) 25 U/L (14-36); Albumin 3.9 g/dl (3.5-5.0); Alkaline Phosphatase 51 U/L (38-126); Blood Urea Nitrogen 17 mg/dl (7-17); Calcium 9.5 mg/dl (8.4-10.2); Carbon Dioxide 25 mmol/L (22-30); Chloride 102 mmol/L (98-107); Estimated Creatinine Clearance 50 ml/min; Glucose 138 mg/dl (70-99); Potassium 4.3 mmol/L (3.5-5.1); Sodium 136 mmol/L (135-145); Total Bilirubin 0.6 mg/dl (0.2-1.3); eGFR > 60.00
--- NOTE | 2023-07-13 21:30 | PTCARENOTE ---
Pt admitted to room 212 from ED, aaox3, able to make needs known, denies c/o pain or discomfort, R leg imobilizer in place. Pt pulled from stretcher to bed with assist x3. Call light within reach.
[2023-07-13 21:38] VITALS: BP 118/64; BMI 32.6
[2023-07-13 22:03] VITALS: BMI 32.6
[2023-07-13 23:20] VITALS: BP 107/64
[2023-07-14 02:59] VITALS: BP 160/50
[2023-07-14 05:32] VITALS: BMI 32.6
[2023-07-14 06:37] LABS: Hematocrit 36.7 % (37.0-47.0); Hemoglobin 12.2 g/dL (12.0-16.0); Mean Corp Hgb Conc. 33.2 g/dL (33.0-37.0); Mean Corpuscular Hgb 31.5 pg (27.0-31.0); Mean Corpuscular Volume 94.8 fL (81.0-99.0); Mean Platelet Volume 11.7 fL (7.4-10.4); Platelet Count 113 10^3/uL (130-400); Red Blood Cell Count 3.87 10^6/uL (4.20-5.40); Red Cell Dist. Width 15.6 % (11.5-14.5); White Blood Cell Count 6.4 10^3/uL (4.8-10.8)
[2023-07-14 06:56] LABS: Blood Urea Nitrogen 17 mg/dl (7-17); Calcium 9.5 mg/dl (8.4-10.2); Carbon Dioxide 21 mmol/L (22-30); Chloride 107 mmol/L (98-107); Estimated Creatinine Clearance 50 ml/min; Glucose 82 mg/dl (70-99); Magnesium 2.2 mg/dl (1.6-2.3); Potassium 4.1 mmol/L (3.5-5.1); Sodium 139 mmol/L (135-145); eGFR > 60.00
[2023-07-14 07:15] VITALS: BP 135/75
[2023-07-14] MEDS: DESENEX/MITRAZOL/ZEASORB 1 APPLIC TOPICAL ×2 (09:18→22:23)
[2023-07-14] MEDS: MYRBETRIQ EXTENDED RELEASE 50 MG PO (09:19)
[2023-07-14] MEDS: TOPROL XL 50 MG PO (09:19)
[2023-07-14] MEDS: FEOSOL 325 MG PO (09:19)
[2023-07-14] MEDS: ASPIR LOW (ENTERIC COATED) 81 MG PO (09:19)
[2023-07-14] MEDS: IMDUR (EXTENDED RELEASE) 60 MG PO (09:19)
[2023-07-14] MEDS: KCL 20 MEQ PO (09:19)
[2023-07-14] MEDS: PRAVACHOL 10 MG PO (09:19)
--- NOTE | 2023-07-14 10:49 | CM ---
CM reviewed chart, patient from [facility]. CM spoke with patients nurse, Zarina, from [facility]. Per Zarina patient ambulates with a rollator at baseline and is independent for transfers. Zarina reports patient fell getting out of
her bed and refused to go to the hospital. Zarina reports they spoke with patients family who encouraged patient to go to hospital as she could not get out of bed.
Patient seen bedside, initial assessment completed. Patient for MRI of knee today. Patient reports she has family support from her sister in law, Ivonne, and her niece, Donya. Patient reports she has had therapy at [facility] in the past, has also
been to [facility]. Patient confirms PCP Dr. Brunson, pharmacy [facility]. Patient very hopeful to return to [facility] with therapy, does not want to go to SNF. CM will follow for PT/OT recommendations of SNF. DORSEY status reviewed,
refused to sign, placed in patients chart. CM will continue to follow for discharge planning needs.
Plan; watch PT/OT recommendations for [facility] vs SNF, patient is observation status with Medicare insurance, will be private pay for SNF if SNF recommendation.
[2023-07-14 15:15] VITALS: BP 137/77
[2023-07-14] MEDS: LOVENOX 40 MG SC (17:16)
--- NOTE | 2023-07-14 18:06 | W.PN.HOSP.TC ---
Addendum entered and electronically signed by Patric Catalan MD 07/14/23 23:16:
Attending Addendum-
I saw and evaluated the patient. I reviewed the resident�s note and agree with findings and plan as documented in the resident�s note. complains of right knee pain s/p fall at [facility]. Full 12 point ROS reviewed and negative except as documented
Exam: Vitals reviewed in chart GEN-NAD heart RRR lungs clear abd soft LE +1 pitting edema right knee TTP mild effusion palpated Plan:
# Right Knee Pain
- h/o right TKA
- s/p fall from bed at [facility]
- PT OT pain control
- 07/13 MRI-
1. Right total knee arthroplasty in place.
2. Small joint effusion with moderate synovial thickening in the suprapatellar bursa.
3. Moderate tendinosis of the patellar tendon.
4. Mild tendinosis of the distal quadriceps tendon attachment.
5. Moderate diffuse para-articular muscle atrophy.
# History of renal calculus/staghorn calculus
- renal US 07/07-
1. SEVERE RIGHT and MODERATE LEFT CHRONIC RENAL DISEASE.
2. Mild dilatation of the right intrarenal calyces and right renal pelvis without definitive interval change from 01/04/2023.
3. 1.3 cm nonobstructing right lower pole intrarenal calculus.
4. Moderate diffuse urinary bladder wall thickening and trabeculation.
- f/u uro as OP Dr. Hodgson as OP
# Coronary artery disease-Continue aspirin-Continue isosorbide mononitrate-Continue metoprolol
# Chronic HFpEF--not in acute exacerbation not on diuretics
# Essential hypertension--cont metoprolol indur
# Hyperlipidemia-Continue pravastatin
# Thrombocytopenia--chronic
# Psoriatic arthritis-Continue methotrexate
DNR/DNI
DVT prophylaxis�lovenox
Dispo - likely DC to SNF on DC
Time spent coordinating care, review of plan of care with resident, review of records, med rec, notes, labs, rads, d/w nursing CM � 56 mins
Original Note:
Today's Communication/Plan
-
MRI results pending.
Optimal pain management
PT OT eval in the a.m. pending orthopedics consult.
Continue home medications.
Plan to discharge to SNF.
Assessment / Plan
Assessment / Plan
Assessment-
83-year-old female with past medical history frequent UTIs, interstitial cystitis, nephrolithiasis (staghorn calculus), coronary artery disease, HFpEF, hypertension, psoriatic arthritis on methotrexate; p/w R knee pain after a fall today.
Impression-
Right knee pain without evidence of fracture on x-ray.
Recent hospital admission-07/07/2023 to 07/12/2023. (SIRS secondary to UTI.)
Plan-
Right knee pain s/p mechanical fall
X-ray unrevealing, MRI results pending.
Patient is unable to bear weight on her leg
Orthopedics consulted for input on weightbearing status, appreciate inputs.
MRI results pending.
Patient admitted to the service, PT and OT eval, patient would likely need SNF.
Recurrent UTIs
History of interstitial cystitis
History of renal calculus.
Received short course of antibiotics.
CAD, HFpEF, hypertension-
Continue aspirin, isosorbide mononitrate, metoprolol
Hyperlipidemia
Statin
Chronic thrombocytopenia.
Psoriatic arthritis
Continue methotrexate.
DVT prophylaxis-Lovenox
CODE STATUS-DNR/DNI.
Anticipated Discharge: > 48 hours
Subjective/Interval History
-
Date of Service: July 14, 2023
Patient reports the knee pain of about 4 out of 10.
Patient reports difficulty in bearing weight on her knee.
No other symptoms.
Objective Data
-
Labs:
Laboratory Results
07/14/23
05:29
WBC 6.4
Hgb 12.2
Hct 36.7 L
Plt Count 113 L D
Sodium 139
Potassium 4.1
Chloride 107
Carbon Dioxide 21 L
BUN 17
Creatinine 0.9
Glucose 82
Calcium 9.5
Vital Signs:
Vital Signs
Temp Pulse Resp BP Pulse Ox
97.3 F 72 18 137/77 96
07/14/23 15:15 07/14/23 15:15 07/14/23 15:15 07/14/23 15:15 07/14/23 15:15
I&O
07/13/23 07/14/23 07/15/23
06:59 06:59 06:59
Intake Total 240 / 240
Balance 240 / 240
Review of Systems
-
History Source: Patient
Respiratory: Reports No Symptoms
Cardiac: Reports No Symptoms
Abdomen/GI: Reports No Symptoms
Breast: Reports No Symptoms
Genitourinary: Reports No Symptoms
Musculoskeletal: Reports No Symptoms
Skin: Reports No Symptoms
Neuro: Reports No Symptoms
Endocrine: Reports No Symptoms
Physical Exam
-
General: Comfortable (On room air)
HEENT: Normocephalic, Atraumatic, Moist Mucous Membranes and PERRLA
Respiratory: Clear to Auscultation (No wheezes, rales, rhonchi.)
Cardiac: Regular Rhythm, S1/S2 and Other (Murmurs, rubs, gallops.)
GI: Soft, Nontender, Nondistended and Normal Bowel Sounds
Genito-urinary: No Costovertebral Tender
Musculoskeletal: No Clubbing, No Cyanosis and Other (Edematous right knee with tenderness to touch. Did not test for range of motion.)
Neuro: AO x 3 and No Motor Deficits
Psych: Calm
[2023-07-14 23:40] VITALS: BP 122/74
[2023-07-15 00:11] VITALS: BP 122/74
[2023-07-15 06:00] VITALS: BMI 32.5
[2023-07-15 06:51] LABS: % Basophils 0.7 % (0-2); % Eosinophils 6.7 % (0-6); % Immature Granulocytes 0.6 % (0-0.5); % Lymphocytes 26.4 % (20.5-51.1); % Monocytes 16.8 % (1.7-9.3); % Neutrophils 48.8 % (42.2-75.2); Absolute Basophils 0.1 10^3/uL (0-0.2); Absolute Eosinophils 0.5 10^3/uL (0-0.7); Absolute Lymphocytes 1.9 10^3/uL (1.2-3.4); Absolute Monocytes 1.2 10^3/uL (0.1-0.6); Absolute Neutrophils 3.4 10^3/uL (1.4-6.5); Hematocrit 38.9 % (37.0-47.0); Hemoglobin 12.5 g/dL (12.0-16.0); Mean Corp Hgb Conc. 32.1 g/dL (33.0-37.0); Mean Corpuscular Hgb 30.9 pg (27.0-31.0); Mean Corpuscular Volume 96.3 fL (81.0-99.0); Nucleated Red Blood Cells % 0 %; Platelet Count 160 10^3/uL (130-400); Red Blood Cell Count 4.04 10^6/uL (4.20-5.40); Red Cell Dist. Width 15.4 % (11.5-14.5)
[2023-07-15 07:19] LABS: ALT (SGPT) 14 U/L (0-35); AST (SGOT) 25 U/L (14-36); Albumin 3.8 g/dl (3.5-5.0); Alkaline Phosphatase 48 U/L (38-126); Blood Urea Nitrogen 15 mg/dl (7-17); Calcium 9.2 mg/dl (8.4-10.2); Carbon Dioxide 23 mmol/L (22-30); Chloride 105 mmol/L (98-107); Estimated Creatinine Clearance 50 ml/min; Glucose 82 mg/dl (70-99); Potassium 4.5 mmol/L (3.5-5.1); Sodium 138 mmol/L (135-145); Total Bilirubin 0.8 mg/dl (0.2-1.3); Total Protein 6.9 g/dl (6.3-8.2); eGFR > 60.00
--- NOTE | 2023-07-15 07:37 | W.PN.HOSP.TC ---
Addendum entered and electronically signed by Patric Catalan MD 07/15/23 23:06:
Attending Addendum-
I saw and evaluated the patient. I reviewed the resident�s note and agree with findings and plan as documented in the resident�s note. continues to have right knee pain. has not ambulated as of yet. Full 12 point ROS reviewed and negative except as
documented Exam: Vitals reviewed in chart GEN-NAD heart RRR lungs clear abd soft LE +1 pitting edema, right knee TTP mild effusion palpated Plan:
# Right Knee Pain
- h/o right TKA
- s/p fall from bed at [facility]
- PT OT pain control
- 07/13 MRI-
1. Right total knee arthroplasty in place.
2. Small joint effusion with moderate synovial thickening in the suprapatellar bursa.
3. Moderate tendinosis of the patellar tendon.
4. Mild tendinosis of the distal quadriceps tendon attachment.
5. Moderate diffuse para-articular muscle atrophy.
- WBAT
- appreciate ortho input
# History of renal calculus/staghorn calculus
- f/u uro as OP Dr. Hodgson as OP
# Coronary artery disease-Continue aspirin-Continue isosorbide mononitrate-Continue metoprolol
# Chronic HFpEF--not in acute exacerbation not on diuretics
# Essential hypertension--cont metoprolol indur
# Hyperlipidemia-Continue pravastatin
# Thrombocytopenia--chronic
# Psoriatic arthritis-Continue methotrexate
DNR/DNI
DVT prophylaxis�lovenox
Dispo - DC to SNF when able, [facility] would not accept patient back until Tuesday
Time spent coordinating care, review of plan of care with resident, review of records, med rec, notes, labs, rads, d/w nursing CM � 53 mins
Original Note:
Today's Communication/Plan
-
PT and OT assessment
Topical Emla cream as needed.
Pediotic pain checks.
Assessment / Plan
Assessment / Plan
Assessment-
83-year-old female with past medical history frequent UTIs, interstitial cystitis, nephrolithiasis (staghorn calculus), coronary artery disease, HFpEF, hypertension, psoriatic arthritis on methotrexate; p/w R knee pain after a fall today.
Impression-
Right knee pain without evidence of fracture on x-ray.
Recent hospital admission-07/07/2023 to 07/12/2023. (SIRS secondary to UTI.)
Plan-
Right knee pain s/p mechanical fall
X-ray unrevealing, MRI results pending.
Patient is unable to bear weight on her leg
Orthopedics consult canceled given no MRI evidence for fracture or displacement of arthroplasty.
Patient admitted to the service, PT and OT eval, patient would likely need SNF.
Recurrent UTIs
History of interstitial cystitis
History of renal calculus.
Received short course of antibiotics.
CAD, HFpEF, hypertension-
Continue aspirin, isosorbide mononitrate, metoprolol
Hyperlipidemia
Statin
Chronic thrombocytopenia.
Psoriatic arthritis
Continue methotrexate.
DVT prophylaxis-Lovenox
CODE STATUS-DNR/DNI.
Anticipated Discharge: 24 - 48 hours
Subjective/Interval History
-
Date of Service: July 15, 2023
Knee pain about 4 out of 10 nonradiating on the anterior surface.
Objective Data
-
Labs:
Laboratory Results
07/15/23
05:26
WBC 7.0
Hgb 12.5
Hct 38.9
Plt Count 160 D
Sodium 138
Potassium 4.5
Chloride 105
Carbon Dioxide 23
BUN 15
Creatinine 0.9
Glucose 82
Calcium 9.2
Total Bilirubin 0.8
AST 25
ALT 14
Alkaline Phosphatase 48
Vital Signs:
Vital Signs
Temp Pulse Resp BP Pulse Ox
97.4 F 73 24 122/74 96
07/14/23 23:40 07/14/23 23:40 07/14/23 23:40 07/14/23 23:40 07/14/23 23:40
I&O
07/14/23 07/15/23 07/16/23
06:59 06:59 06:59
Intake Total 240 / 240 960 / 960
Balance 240 / 240 960 / 960
Review of Systems
-
History Source: Patient
Constitutional: Reports No Symptoms
Respiratory: Reports No Symptoms
Cardiac: Reports No Symptoms
Abdomen/GI: Reports No Symptoms
Genitourinary: Reports No Symptoms
Musculoskeletal: Reports Joint Pain (Right knee pain)
Neuro: Reports No Symptoms
Endocrine: Reports No Symptoms
Allergy / Immunology: Reports No Symptoms
Physical Exam
-
General: Well Developed, Well Nourished and Comfortable (On room air)
HEENT: Normocephalic, Atraumatic and Moist Mucous Membranes
Respiratory: Clear to Auscultation
Cardiac: Regular Rhythm and S1/S2; Negative Murmur, Rub or Gallop
GI: Soft, Nontender, Nondistended and Normal Bowel Sounds
Genito-urinary: No Costovertebral Tender
Musculoskeletal: No Clubbing, No Cyanosis and Other (Passive range of motion intact in the right knee, mild edema to her anteromedial right knee on palpation. Tenderness to touch.)
Skin: Warm
Neuro: AO x 3 and No Motor Deficits
Psych: Calm
[2023-07-15 08:30] VITALS: BP 149/81
[2023-07-15] MEDS: KCL 20 MEQ PO (08:36)
[2023-07-15] MEDS: FEOSOL 325 MG PO (08:36)
[2023-07-15] MEDS: IMDUR (EXTENDED RELEASE) 60 MG PO (08:36)
[2023-07-15] MEDS: ASPIR LOW (ENTERIC COATED) 81 MG PO (08:36)
[2023-07-15] MEDS: DESENEX/MITRAZOL/ZEASORB 1 APPLIC TOPICAL ×2 (08:36→20:21)
[2023-07-15] MEDS: PRAVACHOL 10 MG PO (08:36)
[2023-07-15] MEDS: MYRBETRIQ EXTENDED RELEASE 50 MG PO (08:36)
[2023-07-15] MEDS: TOPROL XL 50 MG PO (08:37)
[2023-07-15 15:00] VITALS: BP 125/73
--- NOTE | 2023-07-15 15:36 | W.PN.UPDATE ---
Update Note
Progress Note Update
Patient was seen this morning on a.m. rounds.Full H&P to follow
Total knee arthroplasty performed in the 80s in [place] uncomplicated and no pre-existing pain prior to recent injury.
X-rays show no acute osseous or hardware complications; MRI with significant amount of metal artifact however no evidence of tendon rupture or hardware complication
On examination extensor mechanism intact and neurovascular intact L3-S1 with some mild anteromedial soft tissue swelling. No significant effusion. She is apprehensive and range of motion but tolerates 0 to 70 degrees. She is stable to varus and
valgus stress testing at 0 and 30 degrees
Discussed with patient and niece of patient who is on the phone at request of the patient that the knee is unremarkable imaging with an intact extensor mechanism and stable on examination. Recommend this timeframe physical therapy consultation and
may be weightbearing as tolerated with close monitoring and assist devices with likely need for skilled rehab. Recommend follow-up in 2 weeks for repeat x-rays and clinical examination
--- NOTE | 2023-07-15 15:54 | CM ---
Call placed to [facility] regarding who we could contact should patient not require SNF and be able to to return to their facility over the week-end. spoke to Elva ALVAREZ, as well as DON/Acting Personal Lines Account Manager was standing next to her. Both stated
that they are not in over the holiday week-end and neither is PT, therefore the patient can not return over this week-end as there is no one there to clinically accept the patient back. I stated that most [facility] do have a process in
place to accept their residents back over the week-end. They stated that it is usually the [facility] and not stand alone Personal Care Facilities such as them, that can accept the patient back on the week-ends. I asked them to
confirm that if patient does not require SNF , that they are saying that this patient will be required to stay in the hospital until Tuesday when they are back in and they stated yes. Call and VM left for [facility]. Update to .
--- NOTE | 2023-07-15 16:17 | CON.ORTHO ---
Consultation
-
Date/Time Consultation Requested: 07/14/2023 1041
Date/Time Consultation Performed: 07/15/2023 0800
Requesting Provider: Dr. Marianne Ojeda
Performing Provider: JARAD Walton, Dr. Marc Campos
Reason for Consultation: Right knee pain
Consultation - Orthopedics
History
83-year-old female with significant past surgical history of right total knee arthroplasty done in the 80s in [facility] that was uncomplicated for evaluation of right knee pain currently admitted to [facility]. She is typically in
assisted living facility and uses a rollator walker at baseline. She had a mechanical type injury and felt posteriorly towards her buttocks and has moving to get up she is crying forward on her right knee. She does subsequently some anterior knee
pain swelling and difficulty utilizing her right lower extremity. Denies any direct impact of her right knee.
Allergies / Home Medications
Past Medical History: Reports Other (frequent UTIs, ESBL E. coli UTI, interstitial cystitis, coronary artery disease, chronic HFpEF, hypertension, renal calculus/staghorn calculus, hyperlipidemia, psoriatic arthritis)
Past Surgical History: Reports None
Social History
Tobacco: Non-smoker
Alcohol: None
Drug: None
Family History
Family History: Not pertinent
Allergy/AdvReac Type Severity Reaction Status Date / Time
adhesive Allergy bleeding, Verified 07/07/23 18:20
reddness,
rash
amoxicillin Allergy Unknown, Verified 07/07/23 18:20
Tolerates
cephalosporins
scallops Allergy Unknown Verified 07/07/23 18:20
�Medication �Instructions �Recorded
isosorbide mononitrate 60 mg 60 mg PO DAILY Heart 05/05/21
tablet,extended release 24 hr disease/condition
methotrexate sodium 2.5 mg tablet 15 mg PO SA arthritis 05/05/21
pravastatin 10 mg tablet 10 mg PO DAILY High cholesterol 05/05/21
aspirin 81 mg tablet,delayed 81 mg PO DAILY Blood clot 08/11/21
release prevention/tx
metoprolol succinate 50 mg 50 mg PO DAILY Blood pressure 08/11/21
tablet,extended release 24 hr
calcium carbonate 500 mg PO DAILY Supplement 06/06/22
ferrous sulfate 325 mg (65 mg 325 mg PO DAILY Supplement 06/06/22
iron) tablet (iron)
folic acid 1 mg tablet 1 mg PO DAILY Supplement 06/06/22
mirabegron 50 mg tablet,extended 50 mg PO DAILY Urinary Issue 05/29/23
release 24 hr (Myrbetriq)
cholecalciferol (vitamin D3) 50 50 mcg PO DAILY Supplement 07/13/23
mcg (2,000 unit) tablet
ezetimibe 10 mg tablet 10 mg PO DAILY High Cholesterol 07/13/23
neomycin 3.5 mg/g-polymyxin B 1 applic RIGHT EYE HS PRN 07/13/23
10,000 unit/g-dexameth 0.1 % eye dry/crusty eyelid
oint
potassium chloride 20 mEq 20 meq PO DAILY Electrolyte 07/13/23
tablet,extended release(part/cryst) Repletion
triamcinolone acetonide 0.1 % 1 applic topical BID PRN psoriasis 07/13/23
topical cream
Vital Signs / Lab Results
Temp Pulse Resp BP Pulse Ox
98.3 F 78 16 149/81 94
07/15/23 08:30 07/15/23 08:37 07/15/23 08:30 07/15/23 08:37 07/15/23 08:30
07/15/23 05:26
07/15/23 05:26
X-rays taken of the right knee show status post right total knee arthroplasty patellar resurfacing without evidence of hardware or osseous complication
MRI of the right knee has significant metal artifact however shows intact extensor mechanism and no osseous injury
Physical examination: Focused examination of the right lower extremity show skin is intact with no erythema or ecchymosis. Soft tissue swelling about the anterior medial aspect of the knee with mild tenderness. Intact extensor mechanism. Range of
motion 0 to 90 degrees allowed by patient but with apprehension. Stable to valgus and varus stress testing at both 0 and 30 degrees. Neurovascular intact L3-S1
Assessment / Plan
Discussed with patient and niece of patient who is on the phone at request of the patient that the knee is unremarkable imaging with an intact extensor mechanism and stable on examination. Recommend this timeframe physical therapy consultation and
may be weightbearing as tolerated with close monitoring and assist devices with likely need for skilled rehab. Recommend follow-up in 2 weeks for repeat x-rays and clinical examination
[2023-07-15] MEDS: LOVENOX 40 MG SC (17:24)
[2023-07-15 23:19] VITALS: BP 120/67
[2023-07-16 05:30] VITALS: BMI 32.4
[2023-07-16 06:46] LABS: Hematocrit 35.7 % (37.0-47.0); Mean Corp Hgb Conc. 33.6 g/dL (33.0-37.0); Mean Corpuscular Hgb 31.4 pg (27.0-31.0); Mean Corpuscular Volume 93.5 fL (81.0-99.0); Mean Platelet Volume 11.3 fL (7.4-10.4); Platelet Count 184 10^3/uL (130-400); Red Blood Cell Count 3.82 10^6/uL (4.20-5.40); Red Cell Dist. Width 15.4 % (11.5-14.5); White Blood Cell Count 6.8 10^3/uL (4.8-10.8)
[2023-07-16 06:59] LABS: ALT (SGPT) 12 U/L (0-35); AST (SGOT) 22 U/L (14-36); Albumin 3.5 g/dl (3.5-5.0); Alkaline Phosphatase 42 U/L (38-126); Blood Urea Nitrogen 18 mg/dl (7-17); Carbon Dioxide 22 mmol/L (22-30); Chloride 106 mmol/L (98-107); Estimated Creatinine Clearance 50 ml/min; Glucose 109 mg/dl (70-99); Sodium 137 mmol/L (135-145); Total Bilirubin 0.8 mg/dl (0.2-1.3); Total Protein 6.7 g/dl (6.3-8.2); eGFR > 60.00
[2023-07-16 07:05] VITALS: BP 138/81
[2023-07-16 07:05] LABS: Potassium 4.4 mmol/L (3.5-5.1)
[2023-07-16] MEDS: TOPROL XL 50 MG PO (08:36)
[2023-07-16] MEDS: FEOSOL 325 MG PO (08:36)
[2023-07-16] MEDS: DESENEX/MITRAZOL/ZEASORB 1 APPLIC TOPICAL ×2 (08:37→21:50)
[2023-07-16] MEDS: PRAVACHOL 10 MG PO (08:37)
[2023-07-16] MEDS: IMDUR (EXTENDED RELEASE) 60 MG PO (08:37)
[2023-07-16] MEDS: MYRBETRIQ EXTENDED RELEASE 50 MG PO (08:37)
[2023-07-16] MEDS: KCL 20 MEQ PO (08:37)
[2023-07-16] MEDS: ASPIR LOW (ENTERIC COATED) 81 MG PO (08:37)
--- NOTE | 2023-07-16 09:58 | W.PN.HOSP.TC ---
Today's Communication/Plan
-
PT/OT
SNF vs.back home
tylenol prn
Assessment / Plan
Assessment / Plan
Assessment-
83-year-old female with past medical history frequent UTIs, interstitial cystitis, nephrolithiasis (staghorn calculus), coronary artery disease, HFpEF, hypertension, psoriatic arthritis on methotrexate; p/w R knee pain after a fall today.
Impression-
Right knee pain likely secondary to tendinosis
Recent hospital admission-07/07/2023 to 07/12/2023. (SIRS secondary to UTI.)
Plan-
Right knee pain s/p mechanical fall
Orthopedics evaluated the patient
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 Small joint effusion with moderate synovial thickening in the suprapatellar bursa. Moderate tendinosis of the patellar tendon. Mild tendinosis of the distal quadriceps tendon attachment. Moderate
diffuse para-articular muscle atrophy.
PT/OT. WBAT
Ice pack/tylenol prn.
Recurrent UTIs
History of interstitial cystitis
History of renal calculus.
Received short course of antibiotics.
CAD,
Continue aspirin, isosorbide mononitrate, metoprolol
Primary HTN
Continue with metoprolol
Chronic HFpEF
Not on diuretics
Hyperlipidemia
Statin
Chronic thrombocytopenia.
Psoriatic arthritis
Continue methotrexate.
folic acid resume
DVT prophylaxis-Lovenox
CODE STATUS-DNR/DNI.
d/w with niece at bedside in details
PT/OT-Cm on board.
Anticipated Discharge: > 48 hours
Subjective/Interval History
-
Date of Service: July 16, 2023
eager to get oob and work with PT
Objective Data
-
Labs:
Laboratory Results
07/16/23
05:12
WBC 6.8
Hgb 12.0
Hct 35.7 L
Plt Count 184
Sodium 137
Potassium 4.4
Chloride 106
Carbon Dioxide 22
BUN 18 H
Creatinine 0.9
Glucose 109 H
Calcium 9.0
Total Bilirubin 0.8
AST 22
ALT 12
Alkaline Phosphatase 42
Vital Signs:
Vital Signs
Temp Pulse Resp BP Pulse Ox
98.4 F 78 18 138/81 94
07/16/23 07:05 07/16/23 07:05 07/16/23 07:05 07/16/23 08:36 07/16/23 07:05
I&O
07/15/23 07/16/23 07/17/23
06:59 06:59 06:59
Intake Total 960 / 960 1200 / 1200
Balance 960 / 960 1200 / 1200
Data Reviewed
-
Total Time Spent with Patient (in minutes): 55
[2023-07-16 11:39] VITALS: BP 119/72; BP 144/76; PULSE 74
[2023-07-16] MEDS: METHOTREXATE 15 MG PO (11:46)
[2023-07-16] MEDS: FOLVITE 1 MG PO (11:46)
[2023-07-16 11:52] VITALS: BP 119/72; BP 144/76; PULSE 75; O2SAT 94
[2023-07-16 15:15] VITALS: BP 166/65
[2023-07-16] MEDS: LOVENOX 40 MG SC (17:39)
[2023-07-16 23:37] VITALS: BP 157/80
[2023-07-17 05:33] VITALS: BMI 32.5
[2023-07-17 07:20] VITALS: BP 111/54
[2023-07-17] MEDS: MYRBETRIQ EXTENDED RELEASE 50 MG PO (07:54)
[2023-07-17] MEDS: ASPIR LOW (ENTERIC COATED) 81 MG PO (07:54)
[2023-07-17] MEDS: KCL 20 MEQ PO (07:54)
[2023-07-17] MEDS: ZETIA 10 MG PO (07:54)
[2023-07-17] MEDS: VITAMIN D3 (cholecalciferol) 50 MCG PO (07:55)
[2023-07-17] MEDS: FOLVITE 1 MG PO (07:55)
[2023-07-17] MEDS: PRAVACHOL 10 MG PO (07:55)
[2023-07-17] MEDS: OSCAL CAL 500 500 MG PO (07:55)
[2023-07-17] MEDS: FEOSOL 325 MG PO (07:55)
[2023-07-17] MEDS: IMDUR (EXTENDED RELEASE) 60 MG PO (07:59)
[2023-07-17] MEDS: TOPROL XL 50 MG PO (07:59)
[2023-07-17] MEDS: DESENEX/MITRAZOL/ZEASORB 1 APPLIC TOPICAL ×2 (08:00→21:04)
--- NOTE | 2023-07-17 10:16 | W.PN.HOSP.TC ---
Today's Communication/Plan
-
Await placement to SNF
Assessment / Plan
Assessment / Plan
Assessment-
83-year-old female with past medical history frequent UTIs, interstitial cystitis, nephrolithiasis (staghorn calculus), coronary artery disease, HFpEF, hypertension, psoriatic arthritis on methotrexate; p/w R knee pain after a fall today.
Impression-
Right knee pain likely secondary to tendinosis
Recent hospital admission-07/07/2023 to 07/12/2023. (SIRS secondary to UTI.)
Plan-
Right knee pain s/p mechanical fall
Orthopedics evaluated the patient
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 Small joint effusion with moderate synovial thickening in the suprapatellar bursa. Moderate tendinosis of the patellar tendon. Mild tendinosis of the distal quadriceps tendon attachment. Moderate
diffuse para-articular muscle atrophy.
PT/OT. WBAT -recs SNF. CM aware.
Ice pack/tylenol prn.
Recurrent UTIs
History of interstitial cystitis
History of renal calculus.
Received short course of antibiotics.
CAD,
Continue aspirin, isosorbide mononitrate, metoprolol
Primary HTN
Continue with metoprolol
BP 111/54
Chronic HFpEF
Not on diuretics
Hyperlipidemia
Statin
Chronic thrombocytopenia.
Psoriatic arthritis
Continue methotrexate.
folic acid resume
DVT prophylaxis-Lovenox
CODE STATUS-DNR/DNI.
d/w with niece at bedside in details
PT/OT-SNF. Cm on board.
Anticipated Discharge: > 48 hours
Subjective/Interval History
-
Date of Service: July 17, 2023
states pain is controlled
worked with PT yesterday
tolerating diet
Objective Data
-
Vital Signs:
Vital Signs
Temp Pulse Resp BP Pulse Ox
97.4 F 89 14 111/54 98
07/17/23 07:20 07/17/23 07:59 07/17/23 07:20 07/17/23 07:59 07/17/23 07:20
I&O
07/16/23 07/17/23 07/18/23
06:59 06:59 06:59
Intake Total 1200 / 1200 1560 / 1560
Balance 1200 / 1200 1560 / 1560
Physical Exam
-
General: Well Developed, Well Nourished, Comfortable (On room air) and Obese
HEENT: Normocephalic, Atraumatic and Moist Mucous Membranes
Respiratory: Clear to Auscultation
Cardiac: Regular Rhythm and S1/S2; Negative Murmur, Rub or Gallop
GI: Soft, Nontender, Nondistended and Normal Bowel Sounds
Genito-urinary: No Costovertebral Tender
Musculoskeletal: No Clubbing, No Cyanosis and Other (Passive range of motion intact in the right knee, mild edema to her anteromedial right knee on palpation. Tenderness to touch. Prior R knee scar noted )
Skin: Warm
Neuro: Awake, AO x 3 and No Motor Deficits
Psych: Calm
[2023-07-17 15:20] VITALS: BP 132/78
[2023-07-17] MEDS: LOVENOX 40 MG SC (17:02)
--- NOTE | 2023-07-17 17:51 | CM ---
met with patient and son janine.right knee pain has improved.right tka in place,patient seen by physical therapy and recommended snf rehab.so wanted [facility] referrals [facility].patient is stable for dc once snf bed is found.cheryl
dc to snf.
--- NOTE | 2023-07-17 18:02 | PTCARENOTE ---
Patient ambulatory in [place] with RW and assistance of this RN, ambulated around unit with assistance twice during shift. Per MD - patient no longer needs to wear R knee brace. Patient states mild discomfort/soreness in R knee throughout shift
relieved by intermittent application of ice pack, states no concerns at this time.
[2023-07-17 23:05] VITALS: BP 123/78
[2023-07-18 05:34] VITALS: BMI 32.3
[2023-07-18 07:15] VITALS: BP 112/74
[2023-07-18] MEDS: IMDUR (EXTENDED RELEASE) 60 MG PO (09:32)
[2023-07-18] MEDS: KCL 20 MEQ PO (09:32)
[2023-07-18] MEDS: TOPROL XL 50 MG PO (09:32)
--- NOTE | 2023-07-18 09:33 | W.PN.HOSP.TC ---
Today's Communication/Plan
-
Await placement
Assessment / Plan
Assessment / Plan
Assessment-
83-year-old female with past medical history frequent UTIs, interstitial cystitis, nephrolithiasis (staghorn calculus), coronary artery disease, HFpEF, hypertension, psoriatic arthritis on methotrexate; p/w R knee pain after a fall today.
Impression-
Right knee pain likely secondary to tendinosis
Recent hospital admission-07/07/2023 to 07/12/2023. (SIRS secondary to UTI.)
Plan-
Right knee pain s/p mechanical fall
Orthopedics evaluated the patient
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 Small joint effusion with moderate synovial thickening in the suprapatellar bursa. Moderate tendinosis of the patellar tendon. Mild tendinosis of the distal quadriceps tendon attachment. Moderate
diffuse para-articular muscle atrophy.
PT/OT. WBAT -recs SNF. CM aware.
Ice pack/tylenol prn.
Recurrent UTIs
History of interstitial cystitis
History of renal calculus.
Received short course of antibiotics.
CAD,
Continue aspirin, isosorbide mononitrate, metoprolol
Primary HTN
Continue with metoprolol
BP 112/74
Chronic HFpEF
Not on diuretics
Hyperlipidemia
Statin
Chronic thrombocytopenia.
Psoriatic arthritis
Continue methotrexate.
folic acid resume
DVT prophylaxis-Lovenox
CODE STATUS-DNR/DNI.
PT/OT-SNF. Cm on board. medically stable since 07/15
Anticipated Discharge: Within 24 hours
Subjective/Interval History
-
Date of Service: July 18, 2023
states improvement in knee pain
sitting in chair
Objective Data
-
Vital Signs:
Vital Signs
Temp Pulse Resp BP Pulse Ox
98.5 F 77 16 112/74 95
07/18/23 07:15 07/18/23 07:15 07/18/23 07:15 07/18/23 07:15 07/18/23 07:15
I&O
07/17/23 07/18/23 07/19/23
06:59 06:59 06:59
Intake Total 1560 / 1560 1440 / 1440
Balance 1560 / 1560 1440 / 1440
[2023-07-18] MEDS: MYRBETRIQ EXTENDED RELEASE 50 MG PO (09:40)
[2023-07-18] MEDS: PRAVACHOL 10 MG PO (09:40)
[2023-07-18] MEDS: FOLVITE 1 MG PO (09:40)
[2023-07-18] MEDS: ZETIA 10 MG PO (09:41)
[2023-07-18] MEDS: DESENEX/MITRAZOL/ZEASORB 1 APPLIC TOPICAL ×2 (09:42→20:45)
[2023-07-18] MEDS: OSCAL CAL 500 500 MG PO (09:42)
[2023-07-18] MEDS: ASPIR LOW (ENTERIC COATED) 81 MG PO (09:42)
[2023-07-18] MEDS: VITAMIN D3 (cholecalciferol) 50 MCG PO (09:42)
[2023-07-18] MEDS: FEOSOL 325 MG PO (09:42)
[2023-07-18 15:40] VITALS: BP 117/72
[2023-07-18] MEDS: LOVENOX 40 MG SC (17:40)
[2023-07-18 23:20] VITALS: BP 136/75
[2023-07-19 05:43] VITALS: BMI 32.3
[2023-07-19 06:00] VITALS: BMI 32.3
[2023-07-19 08:00] VITALS: BP 117/64
[2023-07-19] MEDS: TOPROL XL 50 MG PO (09:59)
[2023-07-19] MEDS: FOLVITE 1 MG PO (09:59)
[2023-07-19] MEDS: MYRBETRIQ EXTENDED RELEASE 50 MG PO (09:59)
[2023-07-19] MEDS: FEOSOL 325 MG PO (10:00)
[2023-07-19] MEDS: KCL 20 MEQ PO (10:00)
[2023-07-19] MEDS: IMDUR (EXTENDED RELEASE) 60 MG PO (10:00)
[2023-07-19] MEDS: VITAMIN D3 (cholecalciferol) 50 MCG PO (10:00)
[2023-07-19] MEDS: PRAVACHOL 10 MG PO (10:01)
[2023-07-19] MEDS: DESENEX/MITRAZOL/ZEASORB 1 APPLIC TOPICAL ×2 (10:04→20:59)
[2023-07-19] MEDS: ASPIR LOW (ENTERIC COATED) 81 MG PO (10:04)
[2023-07-19] MEDS: OSCAL CAL 500 500 MG PO (10:04)
[2023-07-19] MEDS: ZETIA 10 MG PO (10:04)
--- NOTE | 2023-07-19 11:03 | W.PN.HOSP.TC ---
Today's Communication/Plan
-
Medically stable for discharge
Discharge to rehab
Assessment / Plan
Assessment / Plan
83-year-old female with past medical history frequent UTIs, interstitial cystitis, nephrolithiasis (staghorn calculus), coronary artery disease, HFpEF, hypertension, psoriatic arthritis on methotrexate; p/w R knee pain after a fall today.
Sitting in a chair today denies any discomfort
CVS: S1-S2 normal
Chest: CTA B/L
Abdomen: Soft, NT / Bowel sounds present
Extremities: Right knee no redness or warmth
PROCESSING SPEC: Non focal exam
#Right knee pain likely secondary to tendinosis
Right knee pain s/p mechanical fall
Orthopedics evaluated the patient
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 Small joint effusion with moderate synovial thickening in the suprapatellar bursa. Moderate tendinosis of the patellar tendon. Mild tendinosis of the distal quadriceps tendon attachment. Moderate
diffuse para-articular muscle atrophy.
PT/OT. WBAT -recs SNF. CM aware.
Ice pack/Tylenol prn.
#Recent hospital admission-07/07/2023 to 07/12/2023. (SIRS secondary to UTI.)
Recurrent UTIs
History of interstitial cystitis
Nephrolithiasis
Received short course of antibiotics.
Needs outpatient follow-up with urology given thickening of the bladder
#CAD
Continue aspirin, isosorbide mononitrate, metoprolol
#Primary HTN
Continue with metoprolol
BP 112/74
#Chronic HFpEF
Not on diuretics
#Hyperlipidemia
Statin
#Chronic thrombocytopenia.
#Psoriatic arthritis/rheumatoid arthritis
Continue methotrexate.
folic acid
# Obesity with a BMI of 32
#DVT prophylaxis-Lovenox
#CODE STATUS-DNR/DNI.
Discussed with nursing
Discussed with case management
Anticipated Discharge: Today
Subjective/Interval History
-
Date of Service: July 19, 2023
Objective Data
-
Vital Signs:
Vital Signs
Temp Pulse Resp BP Pulse Ox
98.8 F 78 16 117/64 93
07/19/23 08:00 07/19/23 09:59 07/19/23 08:00 07/19/23 09:59 07/19/23 08:00
I&O
07/18/23 07/19/23 07/20/23
06:59 06:59 06:59
Intake Total 1440 / 1440 1680 / 1680
Balance 1440 / 1440 1680 / 1680
--- NOTE | 2023-07-19 11:11 | W.DS.TRANS ---
DC Summary - Wardrobe Technician
-
Discharge Instructions:
Discharge Diagnosis/Procedures Tendinosis right knee, recurrent UTIs, coronary
artery disease, hypertension, chronic heart
failure with preserved ejection fraction,
hyperlipidemia, chronic thrombocytopenia,
psoriatic arthritis, rheumatoid arthritis
Diet 2 Gram Sodium,Restrict fluids to 64 oz
Activity As tolerated,With assistance
Driving Restrictions No driving
Other Services PT,OT
Instructions:
Stand-Alone Forms:
Changes to Home Medications: Yes
Discharge Medications:
DC Medications w/original date entered in [facility]
isosorbide mononitrate 60 mg tablet,extended release 24 hr 60 mg PO DAILY Heart disease/condition 05/05/21
methotrexate sodium 2.5 mg tablet 15 mg PO SA arthritis 05/05/21
pravastatin 10 mg tablet 10 mg PO DAILY High cholesterol 05/05/21
aspirin 81 mg tablet,delayed release 81 mg PO DAILY Blood clot prevention/tx 08/11/21
metoprolol succinate 50 mg tablet,extended release 24 hr 50 mg PO DAILY Blood pressure 08/11/21
calcium carbonate 500 mg PO DAILY Supplement 06/06/22
ferrous sulfate 325 mg (65 mg iron) tablet (iron) 325 mg PO DAILY Supplement 06/06/22
folic acid 1 mg tablet 1 mg PO DAILY Supplement 06/06/22
mirabegron 50 mg tablet,extended release 24 hr (Myrbetriq) 50 mg PO DAILY Urinary Issue 05/29/23
cholecalciferol (vitamin D3) 50 mcg (2,000 unit) tablet 50 mcg PO DAILY Supplement 07/13/23
ezetimibe 10 mg tablet 10 mg PO DAILY High Cholesterol 07/13/23
neomycin 3.5 mg/g-polymyxin B 10,000 unit/g-dexameth 0.1 % eye oint 1 applic RIGHT EYE HS PRN dry/crusty eyelid 07/13/23
potassium chloride 20 mEq tablet,extended release(part/cryst) 20 meq PO DAILY Electrolyte Repletion 07/13/23
triamcinolone acetonide 0.1 % topical cream 1 applic topical BID PRN psoriasis 07/13/23
lidocaine-prilocaine 2.5 %-2.5 % topical cream 1 g topical Q4HPRN PRN s/p Mechanical fall, knee pain #0 grams 07/19/23
polyethylene glycol 3350 17 gram oral powder packet (HealthyLax) 17 g PO DAILY #0 ea 07/19/23
sennosides 8.6 mg-docusate sodium 50 mg tablet (Stool Softener-Stimulant Laxative) 1 tab PO BIDPRN PRN constipation #0 tabs 07/19/23
Home Medication Changes
new
lidocaine-prilocaine 2.5 %-2.5 % topical cream 1 g topical Q4HPRN PRN s/p Mechanical fall, knee pain #0 grams 07/19/23
polyethylene glycol 3350 17 gram oral powder packet (HealthyLax) 17 g PO DAILY #0 ea 07/19/23
sennosides 8.6 mg-docusate sodium 50 mg tablet (Stool Softener-Stimulant Laxative) 1 tab PO BIDPRN PRN constipation #0 tabs 07/19/23
Pending Results: No
--- NOTE | 2023-07-19 13:15 | CM ---
Addendum entered by Margarito Tejeda 07/19/23 15:43:
[facility] can accept patient on 07/20/23. [id number] will transport at 10:00 AM.
NURSE TO NURSE REPORT # [phone] Ask for nursing
FAX # [phone]
Addendum entered by Margarito Tejeda 07/19/23 13:21:
Primary contact, Ivonne Myers, notified via voice message.
Original Note:
Patient is ready for discharge back to [facility]. This CM called and spoke with Mattie (nurse) to advise of plan for discharge. They have requested copy of PT notes which have been forwarded at this time. After review, Mattie will contact CM.
[2023-07-19 16:00] VITALS: BP 112/64
[2023-07-19] MEDS: LOVENOX 40 MG SC (17:35)
--- NOTE | 2023-07-19 19:42 | PTCARENOTE ---
Discharge orders in place, pending transfer to [facility] on 07/20/23. Plan for sister in law to [facility]pler pickup patient at 10:00 AM.
[2023-07-19 23:14] VITALS: BP 111/63
[2023-07-20 05:03] VITALS: BMI 32.1
[2023-07-20 05:35] VITALS: BMI 32.1
[2023-07-20 06:00] VITALS: BMI 32.1
[2023-07-20 08:00] VITALS: BP 115/69
[2023-07-20] MEDS: OSCAL CAL 500 500 MG PO (08:36)
[2023-07-20] MEDS: KCL 20 MEQ PO (08:36)
[2023-07-20] MEDS: IMDUR (EXTENDED RELEASE) 60 MG PO (08:36)
[2023-07-20] MEDS: FEOSOL 325 MG PO (08:37)
[2023-07-20] MEDS: MYRBETRIQ EXTENDED RELEASE 50 MG PO (08:37)
[2023-07-20] MEDS: FOLVITE 1 MG PO (08:37)
[2023-07-20] MEDS: ASPIR LOW (ENTERIC COATED) 81 MG PO (08:37)
[2023-07-20] MEDS: TOPROL XL 50 MG PO (08:37)
[2023-07-20] MEDS: VITAMIN D3 (cholecalciferol) 50 MCG PO (08:37)
[2023-07-20] MEDS: PRAVACHOL 10 MG PO (08:37)
[2023-07-20] MEDS: ZETIA 10 MG PO (08:37)
[2023-07-20] MEDS: DESENEX/MITRAZOL/ZEASORB 1 APPLIC TOPICAL (08:40)
--- NOTE | 2023-07-20 10:35 | W.PN.UPDATE ---
Addendum entered and electronically signed by Aishwarya Smalls MD 07/20/23 18:29:
Dictation- [id number]
Original Note:
Update Note
Progress Note Update
Patient is right is here to pick her up.
She is dressed and seated in a wheelchair.
No complaints.
On examination awake alert
Cardiovascular system S1-S2 normal
Chest clear to auscultation
Abdomen soft and nontender
Had a bowel movement yesterday
Continue discharge plan
--- NOTE | 2023-07-20 14:12 | CM ---
Patient has been medically cleared for discharge back to [facility] with PT services through [place]. [id number] transported patient at 10:00 AM.
NURSE TO NURSE REPORT # [phone] Ask for nursing
FAX # [phone]
== END 2023-07-20 10:38 | disposition home health service (06) | DRG 558 ==
LOC: 2 NORTH 16:32
PROVIDERS: Student in an Organized Health Care Education/Training Program; ADMITTING PHYSICIAN Internal Medicine; ATTENDING PHYSICIAN Hospitalist; EMERGENCY PHYSICIAN Emergency Medicine; FAMILY PHYSICIAN Internal Medicine Geriatric Medicine
DX: M76.51 Patellar tendinitis, right knee (principal); I50.32 Chronic diastolic (congestive) heart failure; M25.461 Effusion, right knee; M25.561 Pain in right knee; W06.XXXA Fall from bed, initial encounter; Y93.89 Activity, other specified; Y92.092 Bedroom in other non-institutional residence as the place of occurrence of the external cause; I11.0 Hypertensive heart disease with heart failure; L40.50 Arthropathic psoriasis, unspecified; I25.10 Atherosclerotic heart disease of native coronary artery without angina pectoris; D69.6 Thrombocytopenia, unspecified; E78.00 Pure hypercholesterolemia, unspecified; M06.9 Rheumatoid arthritis, unspecified; N20.0 Calculus of kidney; E66.9 Obesity, unspecified; R26.2 Difficulty in walking, not elsewhere classified; Z66 Do not resuscitate; Z96.651 Presence of right artificial knee joint; Z87.442 Personal history of urinary calculi; Z79.82 Long term (current) use of aspirin; Z87.01 Personal history of pneumonia (recurrent); Z87.440 Personal history of urinary (tract) infections; Z88.1 Allergy status to other antibiotic agents; Z88.0 Allergy status to penicillin; Z91.048 Other nonmedicinal substance allergy status; Z68.32 Body mass index [BMI] 32.0-32.9, adult
CPT/HCPCS: 29505; 70450; 73564; 73721; 80048; 80053; 83735; 85025; 85027; 87070; 97116; 97163; 97166; 97530; 99285; J8610

== ENCOUNTER → 2023-08-27 10:12 | Outpatient (REF) | payer MEDICARE, BC, SELFPAY ==
[2023-08-27 11:40] LABS: % Basophils 0.8 % (0-2); % Immature Granulocytes 0.6 % (0-0.5); % Lymphocytes 23.8 % (20.5-51.1); % Monocytes 15.6 % (1.7-9.3); % Neutrophils 54.2 % (42.2-75.2); Absolute Basophils 0.1 10^3/uL (0-0.2); Absolute Eosinophils 0.3 10^3/uL (0-0.7); Absolute Lymphocytes 1.6 10^3/uL (1.2-3.4); Absolute Neutrophils 3.6 10^3/uL (1.4-6.5); Hemoglobin 12.9 g/dL (12.0-16.0); Mean Corp Hgb Conc. 32.3 g/dL (33.0-37.0); Mean Corpuscular Hgb 30.9 pg (27.0-31.0); Mean Corpuscular Volume 95.9 fL (81.0-99.0); Mean Platelet Volume 11.9 fL (7.4-10.4); Nucleated Red Blood Cells % 0 %; Platelet Count 144 10^3/uL (130-400); Red Blood Cell Count 4.17 10^6/uL (4.20-5.40); Red Cell Dist. Width 16.2 % (11.5-14.5); White Blood Cell Count 6.6 10^3/uL (4.8-10.8)
[2023-08-27 12:07] LABS: ALT (SGPT) 15 U/L (0-35); AST (SGOT) 22 U/L (14-36); Albumin 4.7 g/dl (3.5-5.0); Alkaline Phosphatase 57 U/L (38-126); Blood Urea Nitrogen 23 mg/dl (7-17); Carbon Dioxide 23 mmol/L (22-30); Chloride 106 mmol/L (98-107); Glucose 102 mg/dl (70-99); Potassium 4.3 mmol/L (3.5-5.1); Sodium 142 mmol/L (135-145); Total Bilirubin 0.6 mg/dl (0.2-1.3); Total Protein 7.6 g/dl (6.3-8.2); eGFR 50.48
[2023-08-27 12:12] LABS: C-Reactive Protein < 5.00 mg/L (0.0-10.00)
[2023-08-27 12:29] LABS: Vitamin D, 25-OH*** 55.9 ng/mL (30-80)
[2023-08-28 23:04] LABS: Endomysial IgA Antibody Titer <1:10 (<1:10)
[2023-08-29 00:13] LABS: IgA 364 mg/dl (70-400)
== END ==
LOC: REG 10:12
PROVIDERS: ATTENDING PHYSICIAN Internal Medicine Rheumatology; FAMILY PHYSICIAN Internal Medicine Geriatric Medicine
DX: E55.9 Vitamin D deficiency, unspecified (principal); K90.0 Celiac disease; L40.50 Arthropathic psoriasis, unspecified; L40.9 Psoriasis, unspecified; N20.0 Calculus of kidney; Z79.899 Other long term (current) drug therapy
CPT/HCPCS: 36415; 80053; 82306; 82784; 83516; 85025; 86140; 86231

== ENCOUNTER → 2023-09-09 14:02 | Outpatient (REF) | payer MEDICARE, BC, SELFPAY | LOC: HWRAD 14:02 | PROVIDERS: ATTENDING PHYSICIAN Physician Assistant; FAMILY PHYSICIAN Internal Medicine Geriatric Medicine | DX: M81.0 Age-related osteoporosis without current pathological fracture (principal) | CPT/HCPCS: 36415; 77080 ==

== ENCOUNTER → 2023-12-24 09:44 | Outpatient (REF) | payer MEDICARE, BC, SELFPAY ==
[2023-12-24 10:37] LABS: Hematocrit 37.8 % (37.0-47.0); Hemoglobin 12.6 g/dL (12.0-16.0); Mean Corp Hgb Conc. 33.3 g/dL (33.0-37.0); Mean Corpuscular Hgb 30.5 pg (27.0-31.0); Mean Corpuscular Volume 91.5 fL (81.0-99.0); Mean Platelet Volume 11.1 fL (7.4-10.4); Platelet Count 126 10^3/uL (130-400); Red Blood Cell Count 4.13 10^6/uL (4.20-5.40); Red Cell Dist. Width 16.5 % (11.5-14.5); Urine Albumin Trace (Neg - Trace); Urine Bilirubin Negative (Negative); Urine Character Slightly Cloudy (Clear); Urine Color Yellow; Urine Glucose Negative (Negative); Urine Ketone Negative (Negative); Urine Leukocyte 2+ (Negative); Urine Nitrite Negative (Negative); Urine Occult Blood Trace (Negative); Urine Specific Gravity 1.015 (<1.030); Urine Urobilinogen Negative (Neg - 1+); White Blood Cell Count 6.8 10^3/uL (4.8-10.8)
[2023-12-24 10:45] LABS: Urine Bacteria Few (Negative); Urine White Cell 60-70 /HPF (0-5)
[2023-12-24 10:52] LABS: Glycohemoglobin (HgbA1c) 6.7 % (4.0-5.6)
[2023-12-24 10:55] LABS: Absolute Neutrophils -Man Diff 3.4 10^3/uL (1.4-6.5); Band Neutrophils 0 % (0-3); Eosinophils 2 % (0-6); Lymphocytes 33 % (20-51); Monocytes 15 % (2-9); Normal RBC Morphology Yes; Platelets Checked Yes; Segmented Neutrophils 50 % (42-75); Total Cells Counted 100
[2023-12-24 11:12] LABS: HDL Cholesterol 66 mg/dl; LDL Cholesterol, Calculated 69 mg/dl; Total Cholesterol 154 mg/dl (50-199); Triglyceride 99 mg/dl (10-149); Very Low Density Lipoprotein 19 mg/dl (0-30)
[2023-12-24 11:13] LABS: ALT (SGPT) 20 U/L (0-35); AST (SGOT) 24 U/L (14-36); Albumin 4.4 g/dl (3.5-5.0); Alkaline Phosphatase 43 U/L (38-126); Blood Urea Nitrogen 22 mg/dl (7-17); Calcium 10.1 mg/dl (8.4-10.2); Carbon Dioxide 26 mmol/L (22-30); Chloride 101 mmol/L (98-107); Glucose 113 mg/dl (70-99); Potassium 4.2 mmol/L (3.5-5.1); Sodium 140 mmol/L (135-145); Total Bilirubin 0.8 mg/dl (0.2-1.3); Total Protein 7.5 g/dl (6.3-8.2); eGFR 50.48
[2023-12-26 07:45] LABS: Quantiferon Mitogen minus NIL 2.14 IU/mL; Quantiferon NIL 0.09 IU/mL; Quantiferon TB Gold Plus Negative (Negative)
[2023-12-26 15:01] LABS: C-Peptide 4.1 ng/mL (0.5-3.3)
== END ==
LOC: REG 09:44
PROVIDERS: ATTENDING PHYSICIAN Internal Medicine Rheumatology; FAMILY PHYSICIAN Internal Medicine Geriatric Medicine
DX: E11.69 Type 2 diabetes mellitus with other specified complication (principal); R30.0 Dysuria; I10 Essential (primary) hypertension; E78.2 Mixed hyperlipidemia; R06.00 Dyspnea, unspecified; I25.2 Old myocardial infarction; R26.89 Other abnormalities of gait and mobility; M70.72 Other bursitis of hip, left hip; Z13.89 Encounter for screening for other disorder; E11.42 Type 2 diabetes mellitus with diabetic polyneuropathy; I25.10 Atherosclerotic heart disease of native coronary artery without angina pectoris; E55.9 Vitamin D deficiency, unspecified; K90.0 Celiac disease; L40.50 Arthropathic psoriasis, unspecified; L40.9 Psoriasis, unspecified; N20.0 Calculus of kidney; Z11.1 Encounter for screening for respiratory tuberculosis; Z79.899 Other long term (current) drug therapy
CPT/HCPCS: 36415; 80053; 80061; 81003; 81015; 83036; 84681; 85025; 86140; 86480; 87077; 87086; 87186

== ENCOUNTER 2024-03-21 04:52 | Inpatient (IN) | payer MEDICARE, BC, SELFPAY ==
[2024-03-20 20:29] VITALS: BMI 35.6
[2024-03-20 20:36] VITALS: BP 127/75
[2024-03-20 22:43] VITALS: BP 116/68
[2024-03-20 23:04] VITALS: BP 121/75
[2024-03-20 23:06] LABS: % Basophils 0.1 % (0-2); % Immature Granulocytes 0.5 % (0-0.5); % Lymphocytes 4.7 % (20.5-51.1); % Monocytes 11.4 % (1.7-9.3); % Neutrophils 83.3 % (42.2-75.2); Absolute Immature Granulocytes 0.1 10^3/uL (0-0.05); Absolute Lymphocytes 0.8 10^3/uL (1.2-3.4); Absolute Monocytes 1.9 10^3/uL (0.1-0.6); Absolute Neutrophils 13.8 10^3/uL (1.4-6.5); Hematocrit 36.6 % (37.0-47.0); Hemoglobin 11.9 g/dL (12.0-16.0); Mean Corp Hgb Conc. 32.5 g/dL (33.0-37.0); Mean Corpuscular Hgb 31.1 pg (27.0-31.0); Mean Corpuscular Volume 95.6 fL (81.0-99.0); Nucleated Red Blood Cells % 0 %; Red Blood Cell Count 3.83 10^6/uL (4.20-5.40); Red Cell Dist. Width 15.7 % (11.5-14.5); White Blood Cell Count 16.6 10^3/uL (4.8-10.8)
[2024-03-20 23:12] LABS: ALT (SGPT) 17 U/L (0-35); AST (SGOT) 28 U/L (14-36); Alkaline Phosphatase 51 U/L (38-126); Blood Urea Nitrogen 21 mg/dl (7-17); Calcium 8.8 mg/dl (8.4-10.2); Carbon Dioxide 23 mmol/L (22-30); Chloride 97 mmol/L (98-107); Creatine Phosphokinase 300 U/L (30-135); Estimated Creatinine Clearance 38 ml/min; Glucose 233 mg/dl (70-99); Potassium 4.6 mmol/L (3.5-5.1); Sodium 130 mmol/L (135-145); Total Bilirubin 1.3 mg/dl (0.2-1.3); Total Protein 6.7 g/dl (6.3-8.2); eGFR 45.48
[2024-03-20 23:23] LABS: Troponin I 0.022 ng/ml
--- NOTE | 2024-03-20 23:27 | ED.GENMED ---
History of Present Illness
General
Chief Complaint: Fall
Source: patient, family and rivet thrower
Exam Limitations: none
Time Seen by Provider: 03/20/24 22:24
Nursing documentation reviewed up to this point in time: agreed with
History of Present Illness
History of Present Illness:
Pleasant 83-year-old female presents to the emergency department with right-sided hip and chest pain. She was standing at her sink when she lost her balance and fell over. She did not hit her head or lose consciousness. She is accompanied by her
daughter.
Past History
Past History
ED Past Medical History: CAD, CHF, HTN and Other (Renal calculi)
ED Past Surgical History: Cardiac
Social History
Tobacco: Non-smoker
Alcohol: None
Drug: None
Personal:
Living: assisted living
Employment: Retired
Phy Exam
General Physical Exam
General Presentation: well appearing and mild distress
General age: appears stated age
General Skin: warm and dry
General Habitus: elderly
General Mental: alert
General Hydration: appears well hydrated
ENT Exam
ENT Exam: EOMI, pharynx normal, neck supple and normocephalic
Eye Exam
Eye Exam: PERRL, cornea clear and conjunctiva normal
Cardiovascular Exam
Cardiovascular Exam: regular rate/rhythm, no edema, no murmur and normal peripheral pulses
Pulmonary Exam
Pulmonary Exam: lungs clear, no respiratory distress, no stridor, no wheezing, no cough and other (Right-sided chest wall tenderness to palpation with minimal to no crepitus)
Gastrointestinal Exam
Gastrointestinal Exam: normal bowel sounds, non tender, soft, no organomegaly, no pulsatile mass and non distended
Neurological Exam
Neurological Exam: alert, oriented x3, no motor deficits and speech normal
Musculoskeletal Exam
Musculoskeletal Exam: full ROM and no edema
Skin Exam
Skin Exam: normal color, warm/dry, no rash and no petechia
Psychiatric Exam
Psychiatric Exam: agitated and anxious
Course
Orders/Labs/Results
Orders:
Orders
03/20/24 20:39
CR Pelvis - 1 Or 2 Views Urgent
Reason For Exam: fall
03/20/24 22:43
CXR [CR Chest Portable - 1 View] Stat
Comment:
Reason For Exam: FALL
Reason Study Needs to be Portable: Unable to Transport
03/20/24 22:44
Cardiac Monitoring- Treatment ONCE
EKG- Treatment ONCE
IV Insert/Care/Rem.- Treatment PRN
O2 Therapy [RESP] Urgent
Titrate/Wean O2 to maintain O2 sat greater than (%): 93
Special Instructions: TO MAINTAIN CONTINUOUS O2 SATS >/= 93%
Pulse Ox/cont/shift [RESP] Urgent
Quantity: 1
Special Instructions: continuous pulse ox
03/20/24 22:47
CPK [Creatine Phosphokinase] Urgent
Complete Blood Count/With Diff Urgent
Comprehensive Metabolic Panel Urgent
Troponin I Urgent
03/20/24 23:19
CT Chest With Iv Contrast Urgent
Comment:
Reason For Exam: rib fx, diff breathing
03/20/24 23:28
0.9% Sodium Chloride 1000 ml [Nss] 1,000 ml IV 250 mls/hr
Incentive Spirometry [Rx Incentive Spirometry] [RESP] Urgent
Frequency: q1h while awake
03/21/24 00:42
CefTRIAXone [Rocephin] 1,000 mg IV NOW STA
03/21/24 00:59
Morphine Sulfate 2 mg IV NOW STA
Ondansetron Injectable [Zofran] 4 mg IV NOW STA
03/21/24 04:33
Admit/Transfer Patient As Directed
Co-Sign Provider:
Level of Care: Inpatient admission
Assign to:: IMU- Intermediate Care
Physician / Group: Iván
Diagnosis: Fall, Rib Fractures
Reason for Hospitalization: Fall, Rib Fractures
Expected length of stay greater than two midnights?: Yes
ELOS- Estimated Length of Stay in days: 2
I certify the patient meets the requirements for IP care: Yes
PRN Pain Medication Management As Directed
May give lesser potent ordered pain med per pt: Yes
preference::
Protocol:: Medication orders for pain may be administered in a
manner that supports deferring to patient preference
when the pt is:
- Requesting an ordered lesser potent pain medication.
Least to most potent pain medications are defined
as: acetaminophen < NSAID < tramadol < opioids
(morphine, oxycodone, hydromorphone).
- Requesting a lesser dose of the same medication IF
ORDERED.
- Requesting a less intrusive route of administration
if both routes are prescribed by the provider (PO <
IV).
03/21/24 04:34
Code Status As Directed
Resuscitation Status: Full Code
03/21/24 05:23
Albuterol Nebs [Ventolin Nebules] 2.5 mg INH R Q4HPRN PRN
Dextrose 50%-Water [Dextrose 50% Syringe] 12.5 grams IV [id number] PRN
Glucagon [GlucaGen] 1 mg IM PRN PRN
HYDROmorphone [Dilaudid] 0.5 mg IV Q4HPRN PRN
03/21/24 05:23
Case Management Consult ONCE
Case Management Consult: Discharge Planning
Activity As Directed
Activity Level: Ambulate
With Assistance
Bedside Glucose Monitoring As Directed
Frequency: AC&HS
Additional Instructions:: Change to q6h if pt on TPN, tube feeding or not eating
EKG with chest pain [ECG as needed] As Directed
ECG as needed for:: Chest Pain
I/O [Intake/ Output] As Directed
Frequency: Per unit guidelines
Pneumatic Compression Sleeves As Directed
Type: Knee high
Vital Signs As Directed
Frequency: Per unit guidelines
Weight As Directed
Frequency: Daily
Incentive Spirometry [Rx Incentive Spirometry] [RESP] Routine
Frequency: q1h while awake
Oxygen Therapy [O2 Therapy] [RESP] Routine
Titrate/Wean O2 to maintain O2 sat greater than (%): 94
Ot Eval And Treat Routine
PT Consult [Pt Eval And Treat] Routine
Activity Level: Ambulate
With Assistance
DX Deep Vein Thrombosis Video Routine
03/21/24 05:31
Basic Metabolic Panel IN AM
CPK [Creatine Phosphokinase] IN AM
Complete Blood Count/No Diff IN AM
Glycohemoglobin (HgbA1c) IN AM
03/21/24 Breakfast
2000 calorie (17 carb) Diabetic
At Your Request: Full Participation
CXR2 [CR Chest - 2 Views ] IN AM
Comment:
Reason For Exam: Rib Fractures, SOB
03/21/24 07:30
Insulin Aspart Corrective Low [Novolog Flexpen-Low Resistance] See Protocol SC AC
03/21/24 08:00
Acetaminophen [Tylenol] 1,000 mg PO TID
Aspirin Low Dose EC [Aspir Low (Enteric Coated)] 81 mg PO DAILY
FOLic ACID [Folvite] 1 mg PO DAILY
ISOSORBIDE MONOnitrate ER [Imdur (Extended Release)] 60 mg PO DAILY
Metoprolol Xl [Toprol Xl] 50 mg PO DAILY
03/21/24 09:32
Urinalysis Routine
Date Specimen was Collected: 03/21/24
Time Specimen was Collected: 08:38
Urine Osmolality Random [Osmolality, Random Urine] Routine
Date Specimen was Collected: 03/21/24
Time Specimen was Collected: 08:38
Urine Sodium Routine
Date Specimen was Collected: 03/21/24
Time Specimen was Collected: 08:38
Abnormal Lab Results
03/20/24
22:47
WBC 16.6 H 10^3/uL
(4.8-10.8)
RBC 3.83 L 10^6/uL
(4.20-5.40)
Hgb 11.9 L g/dL
(12.0-16.0)
Hct 36.6 L %
(37.0-47.0)
MCH 31.1 H pg
(27.0-31.0)
MCHC 32.5 L g/dL
(33.0-37.0)
RDW 15.7 H %
(11.5-14.5)
Abs Immat Gran (auto) 0.1 H 10^3/uL
(0-0.05)
Absolute Neuts (auto) 13.8 H 10^3/uL
(1.4-6.5)
Absolute Lymphs (auto) 0.8 L 10^3/uL
(1.2-3.4)
Absolute Monos (auto) 1.9 H 10^3/uL
(0.1-0.6)
Neutrophils % 83.3 H %
(42.2-75.2)
Lymphocytes % 4.7 L %
(20.5-51.1)
Monocytes % 11.4 H %
(1.7-9.3)
Sodium 130 L mmol/L
(135-145)
Chloride 97 L mmol/L
(98-107)
BUN 21 H mg/dl
(7-17)
Creatinine 1.2 H mg/dL
(0.6-1.0)
Glucose 233 H mg/dl
(70-99)
Creatine Kinase 300 H U/L
(30-135)
03/20/24 22:47
03/20/24 22:47
Vital Signs
Initial and Last Documented VS:
Initial Vital Signs
Temp Pulse Resp BP Pulse Ox
98.7 F 86 16 127/75 95
03/20/24 20:36 03/20/24 20:36 03/20/24 20:36 03/20/24 20:36 03/20/24 20:36
Last Documented Vital Signs
Temp Pulse Resp BP Pulse Ox
98.0 F 82 18 122/73 94
03/22/24 19:35 03/22/24 19:35 03/22/24 19:35 03/22/24 19:35 03/22/24 19:35
*Critical Care Note
Total Time (30-74mins, 75-104mins- exclusive of procedures): 35 (Critical care statement: A total of 35 minutes of critical care time was provided for this patient. This time is separate from time utilized to perform the aforementioned documented
procedures. Aggregate critical care time includes only time during which I was engaged in work directl)
Update Note
Update Note:
CT CHEST
IMPRESSION:
1. No thoracic aortic aneurysm or acute aortic dissection. Enlarged main pulmonary artery measuring up to 3.8 cm, which can be seen in pulmonary arterial hypertension.
2. Displaced right posterolateral 9th and 10th rib fractures. Likely nondisplaced right lateral 6-8 rib fractures. Small right pleural effusion, which appears low-density. Bibasilar atelectasis
Incidentals:
-Calcified coronary atherosclerosis
-Age-indeterminate compression deformity of the T5 vertebral body with approximately 30% height loss anteriorly. Chronic left-sided rib deformities
- No acute abnormality within the visualized abdomen. Cholelithiasis
- No thoracic lymphadenopathy or suspicious lymph nodes.
Due to the 'likely nondisplaced right lateral rib fractures of 6-8 'patient cannot be admitted to the hospitalist service here. When I went to discuss transfer with the patient she is opposed to transfer. At this time she does not want me to call
her niece.
Patient absolutely refuses to be transferred to a trauma service. She states that 'I would rather be transferred back to [facility] AGAINST MEDICAL ADVICE to go to a trauma hospital '. I spoke with the hospitalist who agrees to admit this patient
despite having more than the maximum amount of rib fractures able to be handled by the hospital. Patient does understand that there are risks involved with not going to the trauma center at she is in agreement to stay at her own risk
Spoke with Dr. Florian Lanier, cardiothoracic surgeon who feels the patient should be transferred to a trauma center. I explained to the patient that our cardiothoracic surgeon requested patient be transferred to a trauma center. Patient absolutely
refuses. I explained to her that if something were to go wrong and her condition was to deteriorate she might not be able to get transferred to a trauma center in time. She stated that if she could not stay in the emergency department she would
want to go home. She told me that I was forbidden to talk to her family. She states that she will call her brother, a lawyer probate tomorrow to 'sort this all out '. I asked her what her reasoning was to not be transferred and she states that she has
'family issues to sort out '. She states that it is too late to call her family and explicitly stated that she did not want me to call anyone on her list.
I asked her to sign paperwork stating that she is aware we do not have trauma services here and that if her condition were to deteriorate we may not be able to provide the level of care necessary to resuscitate her. She refused to sign the
paperwork stating that she will talk to her lawyer probate brother in the morning. I told her that this is unacceptable and then she stated to 'discharge me AGAINST MEDICAL ADVICE'. Patient does understand that keeping her here would be against my medical
advice and that of the cardiothoracic surgeon and the hospitalist.
ED Attending Note
-
Portions of this chart may have been created with voice recognition software.� Occasional wrong word or��sound alike� substitutions may have occurred due to the inherent limitations of voice recognition software.
Discharge Plan
Departure
Patient Disposition: Admit
Date of Disposition: 03/21/24
Time of Disposition: 00:40
Admit to: Med/Surg
Presentation/result/management discussed w/ accepting MD/DO: Hospitalist
Condition: Good
Discharge Problem:
Fracture of rib, Rhabdomyolysis, Fall
Interventions
Interventions:
*Risk Screen - Suicide Last Done: 03/21/24 21:18
*General Assessment Last Done: 03/20/24 22:30
*Neglect/Abuse Screening Last Done: 03/20/24 20:39
ED- Fall Risk Assessment Last Done: 03/21/24 04:30
*ED COVID-19 Vaccine History Last Done: 03/21/24 21:18
*Nursing Disposition Last Done: 03/21/24 20:18
ED-Musculoskeletal Assessment Last Done: 03/21/24 10:09
ED- Neurological Assessment Last Done: 03/21/24 10:09
ED-Skin Assessment Last Done: 03/21/24 10:09
Discharge Date and Time
Discharge Date/Time: 03/21/24 20:19
[2024-03-21] VITALS (18 sets, daily range): BP systolic 119–166; BP diastolic 71–99; PULSE 79–83; O2SAT 94; BMI 35.2
[2024-03-21] MEDS: NSS 1000 IV (00:42)
[2024-03-21] MEDS: ROCEPHIN 1000 MG IV (01:05)
[2024-03-21] MEDS: ZOFRAN 4 MG IV (01:06)
[2024-03-21] MEDS: MORPHINE SULFATE 2 MG IV (01:06)
--- NOTE | 2024-03-21 02:53 | EDRN ---
Multiple attempts made by Dr Howe in order to transfer patient due to level of injury and mechanism of injury. Patient adamantly refusing to be transferred at this time. Patient made aware of potential risks. Patient states 'I am willing to
accept the risk at this time'. Patient alert and oriented.
--- NOTE | 2024-03-21 04:38 | HPS.HSE ---
Family Physician
-
Family Physician: Marcos Brunson
Chief Complaint
-
Fall, Chest Pain
History of Present Illness
Patient is an 83y F with PMH significant for ASCVD, HTN and DM-II who presents to ED complaining of right sided chest pain s/p fall at home. Patient states that she was in her bathroom today and was leaning towards the sink when she
'over-extended' and lost her balance. She states that she 'leaned' against the counter and became wedged between the counter and the toilet - unable to move. She denies any fall to floor, any head injury, LOC, etc.
Patient notes that she was stuck in that position 'for a while' before she was assisted up by family / staff.
Patient noted discomfort in the R chest from leaning against the counter and presented to the ED for evaluation.
At the time of my examination, patient is sleeping comfortably in no acute distress.
She denies any other areas of pain including arms, legs, neck, back or head.
imaging done in the ED shows R 9th and 10th rib fractures that are displaced. There are additional 'likely' rib fractures on the R 6 through 8.
No other fractures, dislocations, etc. No pneumothorax.
Medical History
Past Medical History
Past Medical History: Reports Other
Additional Past Medical History:
ASCVD
Hypertension
Diet-Controlled DM-II
Squamous Cell Skin Cancer
Psoriatic Arthritis
OAB
Past Surgical History: Reports Other
Additional Past Surgical History:
CABG x 2
PTCA with Stent x 4
Right TSA
Bilateral TKA
Patella ORIF
Cataracts
Lithotripsy
Social History
Tobacco: Non-smoker
Alcohol: None
Drug: None
Living: Assisted Living
Family History
Family History: Not pertinent
Allergies / Home Medications
Allergies reflects when Allergies were last updated in [facility].
Home Medications with original date entered in [facility]
Allergy/Medication List:
Allergies
Allergy/AdvReac Type Severity Reaction Status Date / Time
adhesive Allergy bleeding, Verified 07/07/23 18:20
reddness,
rash
amoxicillin Allergy Unknown, Verified 07/07/23 18:20
Tolerates
cephalosporins
scallops Allergy Unknown Verified 07/07/23 18:20
Home Medications
isosorbide mononitrate 60 mg tablet,extended release 24 hr 60 mg PO DAILY Heart disease/condition 05/05/21
methotrexate sodium 2.5 mg tablet 15 mg PO SA arthritis 05/05/21
pravastatin 10 mg tablet 10 mg PO DAILY High cholesterol 05/05/21
aspirin 81 mg tablet,delayed release 81 mg PO DAILY Blood clot prevention/tx 08/11/21
metoprolol succinate 50 mg tablet,extended release 24 hr 50 mg PO DAILY Blood pressure 08/11/21
calcium carbonate 600 mg PO DAILY Supplement 06/06/22
folic acid 1 mg tablet 1 mg PO DAILY Supplement 06/06/22
cholecalciferol (vitamin D3) 50 mcg (2,000 unit) tablet 50 mcg PO DAILY Supplement 07/13/23
ezetimibe 10 mg tablet 10 mg PO DAILY High Cholesterol 07/13/23
potassium chloride 20 mEq tablet,extended release(part/cryst) 20 meq PO DAILY Electrolyte Repletion 07/13/23
amlodipine 2.5 mg tablet 2.5 mg PO DAILY 03/21/24
cranberry extract 200 mg capsule (Ellura) 200 mg PO DAILY 03/21/24
vibegron 75 mg tablet (Gemtesa) 75 mg PO DAILY 03/21/24
Review of Systems
-
History Source: Patient
A 12 point ROS was completed and negative except as noted: Yes
Constitutional: Denies Fever or Chills
EENT: Denies Sore Throat
Respiratory: Denies Cough or Trouble Breathing
Cardiac: Reports Chest Pain; Denies Diaphoresis or Palpitations
Abdomen/GI: Denies Abdominal Pain, Nausea, Vomiting or Diarrhea
: Denies Dysuria or Frequency
Musculoskeletal: Denies Joint Pain or Edema
Neurological: Denies Dizzy or Headache
Physical Exam
Vital Signs
Vital Signs
Temp Pulse Resp BP Pulse Ox
98.7 F 82 22 119/71 96
03/20/24 20:36 03/21/24 02:45 03/21/24 02:45 03/21/24 02:00 03/21/24 02:45
Physical Exam
General: Other (83y F in no acute distress.)
HEENT: Moist mucous membranes and PERRLA
Respiratory: Other (Decreased BS at bases. No wheezes / rales / rhonchi.)
Cardiac: S1/S2 and Regular Rhythm (with ectopy.); No Murmur
GI: Soft, Non Tender, Non Distended and Normal Bowel Sounds
Musculoskeletal: No Clubbing, No Cyanosis and Other (Trace edema / chronic venous stasis skin changes. Tenderness along the posterolateral R ribs.)
Neuro: AO x 3 and Nonfocal/grossly intact
Laboratory Results
-
03/20/24 22:47
03/20/24 22:47
Laboratory Results
Total Bilirubin 1.3 mg/dl (0.2-1.3) 03/20/24 22:47
AST 28 U/L (14-36) 03/20/24 22:47
ALT 17 U/L (0-35) 03/20/24 22:47
Alkaline Phosphatase 51 U/L (38-126) 03/20/24 22:47
Troponin I 0.022 ng/ml 03/20/24 22:47
Impression/Plan
-
A/P: Patient is an 83y F with PMH significant for ASCVD, HTN and DM-II who presents to ED complaining of R chest discomfort s/p fall at home.
Right-Sided Rib Fractures
Fall at Home
- Admit for further evaluation and treatment.
- Recommended trauma center evaluation (see ED physician notes); however, patient adamantly refused transfer.
- Pain control / supportive care.
- Follow for worsening pain, dyspnea, anemia, etc.
- Repeat CXR in the AM to assess for interval changes.
- Follow-up formal CT report - initial [facility] report indicates 2 fractures with 3 additional fractures likely.
- PT / OT evaluations.
- CM eval for discharge planning / placement.
- Follow for any new / worsening symptoms.
Elevated CPK
- Mildly elevated CPK likely due to muscle injury / trauma.
- Check UA for evidence of pigment nephropathy.
- Received IVFs in the ED.
- Follow for improvement.
Mild Hyponatremia
- Na = 130 compared to prior baseline 140.
- ? volume versus ADH mediated.
- Check urine studies.
- IVFs given in the ED - follow-up repeat labs for changes.
ASCVD
Benign Hypertension
- Stable. No substernal chest pain, dyspnea, palpitations.
- No prodrome, lightheadedness, etc prior to fall.
- Continue current CV med regimen including ASA, statin, etc.
Diet-Controlled DM
- Follow glucose and cover with SSI if needed.
- Update A1C.
Psoriatic Arthritis
- Stable. No specific joint pains, etc at present.
- Continue current med regimen.
- Resume MTX if patient still hospitalized Tuesday.
DVT Prophylaxis: SCDs
Code Status: Full
[2024-03-21 05:58] LABS: Hematocrit 36.1 % (37.0-47.0); Hemoglobin 11.7 g/dL (12.0-16.0); Mean Corp Hgb Conc. 32.4 g/dL (33.0-37.0); Mean Corpuscular Hgb 31.5 pg (27.0-31.0); Red Blood Cell Count 3.72 10^6/uL (4.20-5.40); Red Cell Dist. Width 15.7 % (11.5-14.5); White Blood Cell Count 13.9 10^3/uL (4.8-10.8)
[2024-03-21 06:13] LABS: Blood Urea Nitrogen 19 mg/dl (7-17); Calcium 8.7 mg/dl (8.4-10.2); Carbon Dioxide 22 mmol/L (22-30); Chloride 102 mmol/L (98-107); Estimated Creatinine Clearance 41 ml/min; Glucose 122 mg/dl (70-99); Potassium 4.1 mmol/L (3.5-5.1); Sodium 134 mmol/L (135-145); eGFR 50.48
[2024-03-21 07:13] LABS: Creatine Phosphokinase 298 U/L (30-135)
[2024-03-21 07:17] LABS: Mean Platelet Volume 11.5 fL (7.4-10.4); Platelet Count 80 10^3/uL (130-400)
[2024-03-21 08:31] LABS: Glycohemoglobin (HgbA1c) 6.9 % (4.0-5.6)
[2024-03-21] MEDS: IMDUR (EXTENDED RELEASE) 60 MG PO (09:01)
[2024-03-21] MEDS: ASPIR LOW (ENTERIC COATED) 81 MG PO (09:01)
[2024-03-21] MEDS: TOPROL XL 50 MG PO (09:01)
[2024-03-21] MEDS: FOLVITE 1 MG PO (09:02)
[2024-03-21] MEDS: TYLENOL 1000 MG PO ×3 (09:02→21:52)
[2024-03-21 09:25] LABS: Glucose - Point of Care 125 mg/dl (70-99)
[2024-03-21] MEDS: NOVOLOG FLEXPEN-LOW RESISTANCE SC ×3 (09:27→20:17)
[2024-03-21 09:42] LABS: Urine Albumin 3+ (Neg - Trace); Urine Bilirubin Negative (Negative); Urine Character Slightly Cloudy (Clear); Urine Color Yellow; Urine Glucose Negative (Negative); Urine Ketone Negative (Negative); Urine Leukocyte 3+ (Negative); Urine Nitrite Positive (Negative); Urine Occult Blood 4+ (Negative); Urine Urobilinogen Negative (Neg - 1+)
[2024-03-21 09:57] LABS: Urine Squamous Cell 0-2 /LPF (Few); Urine White Cell 26-30 /HPF (0-5)
[2024-03-21 09:58] LABS: Urine Bacteria Few (Negative)
[2024-03-21 10:32] LABS: Osmolality Urine 243 mOsm/kg (300-900)
[2024-03-21 10:46] LABS: Urine Sodium 34 mmol/L (30-90)
--- NOTE | 2024-03-21 10:49 | W.PN.UPDATE ---
Update Note
Progress Note Update
Non-billable addedum (H&P entered 438 AM)
Patient admitted with R sided chest pain after fall - found to have 3 right sided rib fractures per staff Radiologist on prelim read - formal report pending. No reported complications such as flail chest, hemothorax reported.
Assessment:
Acute hypoxic respiratory insufficiency on 2L
- wean to 1L and overall can wean to RA as tolerated
Right-Sided Rib Fractures
Fall at Home
- initial ER/hospitalist eval concerning for at least 5 rib fx prompting discussions regarding trauma transfer (see ER notes)
- d/w Dr. Acosta - Radiology - mentions 3 right rib fractures (6-8), no complications, although awaiting final read. repeat CXR this AM shows right 6th rib fracture but again await CT result.
- Pain control / supportive care.
- Follow for worsening pain, dyspnea, anemia, etc.
- PT / OT evaluations.
- CM eval for discharge planning / placement.
- Follow for any new / worsening symptoms.
Elevated CPK
- Mildly elevated CPK likely due to muscle injury / trauma.
- Received IVFs in the ED.
- Follow for improvement.
UTI with Leukocytosis
- start Rocephin, day 1 pending final culture
Mild Hyponatremia
CKD stage 31
- Na was 130 on admission, currently 134 after IVF
- cap IVF and encourage oral fluid intake
- f/u urine studies
ASCVD
Benign Hypertension
- Stable. No substernal chest pain, dyspnea, palpitations.
- No prodrome, lightheadedness, etc prior to fall.
- Continue current CV med regimen including ASA, statin, etc.
Diet-Controlled DM
- Follow glucose and cover with SSI if needed.
- A1C. is 6.9%
Psoriatic Arthritis
- Stable. No specific joint pains, etc at present.
- Continue current med regimen.
- Resume MTX if patient still hospitalized Tuesday.
Thrombocytopenia
- no bleeding noted
- monitor CBC
DVT Prophylaxis: SCDs
Code Status: Full
[2024-03-21 13:27] LABS: Glucose - Point of Care 118 mg/dl (70-99)
[2024-03-21 20:13] LABS: Glucose - Point of Care 96 mg/dl (70-99)
[2024-03-21] MEDS: ROXICODONE 5 MG PO (21:53)
[2024-03-22] MEDS: STERILE WATER FOR INJECTION 10 ML IV ×2 (00:42→23:53)
[2024-03-22] MEDS: ROCEPHIN 1000 MG IV ×2 (00:42→23:53)
[2024-03-22 03:05] VITALS: BP 133/76
[2024-03-22 06:00] VITALS: BMI 35.1
[2024-03-22 06:28] LABS: % Basophils 0.3 % (0-2); % Eosinophils 2.9 % (0-6); % Immature Granulocytes 0.3 % (0-0.5); % Lymphocytes 7.7 % (20.5-51.1); % Neutrophils 69.8 % (42.2-75.2); Absolute Eosinophils 0.3 10^3/uL (0-0.7); Absolute Lymphocytes 0.7 10^3/uL (1.2-3.4); Absolute Monocytes 1.8 10^3/uL (0.1-0.6); Absolute Neutrophils 6.7 10^3/uL (1.4-6.5); Hematocrit 37.8 % (37.0-47.0); Hemoglobin 12.1 g/dL (12.0-16.0); Mean Corpuscular Hgb 31.3 pg (27.0-31.0); Mean Corpuscular Volume 97.9 fL (81.0-99.0); Mean Platelet Volume 10.9 fL (7.4-10.4); Nucleated Red Blood Cells % 0 %; Platelet Count 89 10^3/uL (130-400); Red Blood Cell Count 3.86 10^6/uL (4.20-5.40); Red Cell Dist. Width 15.7 % (11.5-14.5); White Blood Cell Count 9.7 10^3/uL (4.8-10.8)
[2024-03-22 06:35] LABS: ALT (SGPT) 15 U/L (0-35); AST (SGOT) 23 U/L (14-36); Albumin 3.6 g/dl (3.5-5.0); Alkaline Phosphatase 55 U/L (38-126); Blood Urea Nitrogen 18 mg/dl (7-17); Calcium 8.4 mg/dl (8.4-10.2); Carbon Dioxide 25 mmol/L (22-30); Chloride 101 mmol/L (98-107); Creatine Phosphokinase 133 U/L (30-135); Glucose 113 mg/dl (70-99); Potassium 4.2 mmol/L (3.5-5.1); Sodium 137 mmol/L (135-145); Total Bilirubin 0.6 mg/dl (0.2-1.3); Total Protein 6.3 g/dl (6.3-8.2)
[2024-03-22 06:42] LABS: Estimated Creatinine Clearance 36 ml/min; eGFR 45.48
[2024-03-22 07:28] VITALS: BP 146/83
[2024-03-22 07:45] LABS: Glucose - Point of Care 111 mg/dl (70-99)
[2024-03-22] MEDS: NOVOLOG FLEXPEN-LOW RESISTANCE SC (09:03)
[2024-03-22] MEDS: TYLENOL 1000 MG PO ×3 (09:04→21:53)
[2024-03-22] MEDS: TOPROL XL 50 MG PO (09:05)
[2024-03-22] MEDS: FOLVITE 1 MG PO (09:05)
[2024-03-22] MEDS: IMDUR (EXTENDED RELEASE) 60 MG PO (09:05)
[2024-03-22] MEDS: ASPIR LOW (ENTERIC COATED) 81 MG PO (09:05)
[2024-03-22 11:01] VITALS: BP 125/66
--- NOTE | 2024-03-22 11:36 | CON.PUL ---
Consultation
Consultation Request
Date/Time Consultation Requested: 03/22/2024
Date/Time Consultation Performed: 03/22/2024
Requesting Provider: Dr. Dao
Performing Provider: Dr. Venu Woodall
Reason for Consultation: Rib fractures-traumatic
Medical History
-
History of Present Illness:
83-year-old woman with past medical history significant for coronary artery disease, heart failure with preserved ejection fraction, hypertension presented to the emergency room complaining of right-sided chest pain and hip pain. Patient fell over
from the standing position. Loss of balance. Denied head trauma or loss of consciousness.
She was found to have multiple right-sided rib fractures on CAT scan.
She was recommended to go to a trauma center but she refused.
I was consulted on 03/22/[address] surgery briefly evaluated the case but did not see formally but did not recommend any surgical interventions.
Denies shortness of breath at rest
Denies hemoptysis
Social History
Tobacco: Non-smoker
Alcohol: None
Drug: None
Personal:
Living: Assisted Living
Employment: Retired
Family History
Family History: Reviewed & Not Pertinent
Allergies / Home Medications
Allergies
Allergy/AdvReac Type Severity Reaction Status Date / Time
adhesive Allergy bleeding, Verified 07/07/23 18:20
reddness,
rash
amoxicillin Allergy Unknown, Verified 07/07/23 18:20
Tolerates
cephalosporins
scallops Allergy Unknown Verified 07/07/23 18:20
Home Medications
�Medication �Instructions �Recorded �Confirmed �Last Taken �Type
isosorbide mononitrate 60 mg 60 mg PO DAILY Heart 05/05/21 03/21/24 07/13/23 History
tablet,extended release 24 hr disease/condition
methotrexate sodium 2.5 mg tablet 15 mg PO SA arthritis 05/05/21 03/21/24 07/02/23 History
pravastatin 10 mg tablet 10 mg PO DAILY High cholesterol 05/05/21 03/21/24 07/13/23 History
aspirin 81 mg tablet,delayed 81 mg PO DAILY Blood clot 08/11/21 03/21/24 07/13/23 History
release prevention/tx
metoprolol succinate 50 mg 50 mg PO DAILY Blood pressure 08/11/21 03/21/24 07/13/23 History
tablet,extended release 24 hr
calcium carbonate 600 mg PO DAILY Supplement 06/06/22 03/21/24 07/13/23 History
folic acid 1 mg tablet 1 mg PO DAILY Supplement 06/06/22 03/21/24 07/13/23 History
cholecalciferol (vitamin D3) 50 50 mcg PO DAILY Supplement 07/13/23 03/21/24 07/13/23 History
mcg (2,000 unit) tablet
ezetimibe 10 mg tablet 10 mg PO DAILY High Cholesterol 07/13/23 03/21/24 07/13/23 History
potassium chloride 20 mEq 20 meq PO DAILY Electrolyte 07/13/23 03/21/24 07/13/23 History
tablet,extended release(part/cryst) Repletion
amlodipine 2.5 mg tablet 2.5 mg PO DAILY 03/21/24 03/21/24 Unknown History
cranberry extract 200 mg capsule 200 mg PO DAILY 03/21/24 03/21/24 Unknown History
(Ellura)
vibegron 75 mg tablet (Gemtesa) 75 mg PO DAILY 03/21/24 03/21/24 Unknown History
Review of Systems
-
History Source: Patient
All other systems: Negative unless noted
Vitals / Labs / Diagnostic Testing
Vital Signs
Temp Pulse Resp BP Pulse Ox
97.6 F 77 17 125/66 94
03/22/24 11:01 03/22/24 11:01 03/22/24 11:01 03/22/24 11:01 03/22/24 11:01
Lab Data
03/22/24 05:47
01/30/25 05:47
Diagnostic Testing:
Physical Exam
-
HEENT: Normocephalic
Cardiovascular: S1/S2
Respiratory: Non-Labored Respirations
GI: Non Distended
Neurology: Awake and AO x 3
Skin: Warm
General: Comfortable
Assessment
-
83-year-old woman With past medical history noted, admitted on 03/20/2024 PM after sustaining a fall from the standing position and having right sided trauma. Multiple rib fractures were noted on CAT scan. Patient was recommended to go to a trauma
center for if she declined
CT surgery did not recommend any interventions. We were consulted 03/22/2024.
Right-sided rib fractures x 4 s/p fall from the standing position.
CT chest reviewed: Minimal right pleural effusion. No evidence for pulmonary contusion. 2 of the ribs fracture from mildly displaced. No pneumothorax.
EKG reviewed: Normal sinus rhythm. Possible inferior infarct age undetermined. No ST-T wave abnormalities
Rhabdomyolysis-posttrauma
UTI
Condition present prior admission:
Hypertension
Type 2 diabetes diet controlled
Psoriatic arthritis on methotrexate
Coronary artery bypass x 2
History of PTCA with a stent x 4
Bilateral total knee arthroplasty
History of patellar ORIF
Kidney stones with lithotripsy
Assessment and plan:
-
Right-sided traumatic rib fractures: Patient fell from the standing position.
CT chest reviewed in detail: There is a tiny right pleural effusion. There is no evidence for pulmonary contusion.
There is no pneumothorax.
Minimal right lower lobe atelectasis. Likely due to splinting.
There is old left rib fractures.
There is postsurgical changes in the sternum.
There is a nondisplaced posterior lateral right seventh rib fracture and posterior eighth rib fracture. There is a displaced lateral right ninth and posterior right 10th rib fracture.
There is a T5 compression fracture.
-
On exam there is no chest wall deformity or flail chest.
On the report chest pain with coughing and deep inspiration.
Able to speak in full sentences.
Patient does not have any history of pulmonary disease.
Currently 94% on room air.
Rib fractures are only mildly displaced x 2. Per CAT scan report.
No evidence for impending respiratory failure.
Chest x-ray as needed, last x-ray 03/21/2024: Showed no acute disease of the chest. Questionable nondisplaced acute posterior right sixth rib fracture. No additional fractures identified.
-
At this point recommend medical management
Analgesia per primary team: Tramadol/oxycodone/IV Dilaudid as needed for severe pain.
Pulmonary hygiene
Incentive spirometry as able
Monitor for respiratory failure at this point not evident.
-
Eventual physical therapy evaluation
Likely will need some placement if unable to be independent due to pain.
-
Antibiotics for UTI per primary team.
-
Pulmonary will follow briefly to assure stability.
[2024-03-22 11:51] LABS: Glucose - Point of Care 214 mg/dl (70-99)
[2024-03-22] MEDS: ULTRAM 25 MG PO (12:47)
[2024-03-22] MEDS: NOVOLOG FLEXPEN-LOW RESISTANCE 2 UNITS SC ×2 (13:41→17:43)
--- NOTE | 2024-03-22 13:55 | W.PN.HOSP.TC ---
Today's Communication/Plan
-
continue pain control
continue rehab
continue IV Abx
Assessment / Plan
Assessment / Plan
Assessment:
Acute hypoxic respiratory insufficiency on 2L
- now weaned to RA
Right-Sided Rib Fractures
Fall at Home
- initial ER/hospitalist eval concerning for at least 5 rib fx prompting discussions regarding trauma transfer (see ER notes)
- CT: nondisplaced posterolateral right seventh rib fracture and posterior eighth rib fracture. There is a displaced lateral right ninth and posterior right 10th rib fracture.
- patient refused transfer
- Pain control/supportive care.
- Follow for worsening pain, dyspnea, anemia, etc.
- PT/OT evaluations - SNF recommended
- CM eval for discharge planning/placement.
- Follow for any new/worsening symptoms.
Elevated CPK
- Mildly elevated CPK likely due to muscle injury/trauma.
- Received IVFs in the ED.
- Follow for improvement.
UTI with Leukocytosis
- Rocephin, day 2 pending final culture
Mild Hyponatremia
CKD stage 31
- Na was 130 on admission, currently 137 after IVF
- cap IVF and encourage oral fluid intake
- f/u urine studies
ASCVD
Benign Hypertension
- Stable. No substernal chest pain, dyspnea, palpitations.
- No prodrome, lightheadedness, etc prior to fall.
- Continue current CV med regimen including ASA, statin, etc.
Diet-Controlled DM
- Follow glucose and cover with SSI if needed.
- A1C. is 6.9%
Psoriatic Arthritis
- Stable. No specific joint pains, etc at present.
- Continue current med regimen.
- Resume MTX if patient still hospitalized Tuesday.
Thrombocytopenia
- no bleeding noted
- monitor CBC
DVT Prophylaxis: SCDs
Code Status: Full
Anticipated Discharge: 24 - 48 hours
Subjective/Interval History
-
Date of Service: March 22, 2024
reports discomfort, but no respiratory symptoms
Objective Data
-
Labs:
Laboratory Results
03/22/24
05:47
WBC 9.7
Hgb 12.1
Hct 37.8
Plt Count 89 L
Sodium 137
Potassium 4.2
Chloride 101
Carbon Dioxide 25
BUN 18 H
Creatinine 1.2 H
Glucose 113 H
Calcium 8.4
Total Bilirubin 0.6
AST 23
ALT 15
Alkaline Phosphatase 55
Vital Signs:
Vital Signs
Temp Pulse Resp BP Pulse Ox
97.6 F 77 17 125/66 94
03/22/24 11:01 03/22/24 11:01 03/22/24 11:01 03/22/24 11:01 03/22/24 11:01
I&O
03/21/24 03/22/24 03/23/24
06:59 06:59 06:59
Intake Total 940 / 940
Output Total 1650 / 1650
Balance -710 / -710
Physical Exam
-
General: No Apparent Distress
HEENT: Normocephalic and Atraumatic
Respiratory: Negative Wheezes
Cardiac: Regular Rhythm and S1/S2
GI: Soft and Nontender
Genito-urinary: No Costovertebral Tender
Musculoskeletal: No Edema
Neuro: AO x 3
Hematologic / Lymphatic: No Lymphadenopathy
Psych: Calm
Data Reviewed
-
Total Time Spent with Patient (in minutes): 41
Labs: Labs Reviewed by me
[2024-03-22 15:00] VITALS: BP 123/73
[2024-03-22 16:44] LABS: Glucose - Point of Care 200 mg/dl (70-99)
[2024-03-22 19:35] VITALS: BP 122/73
[2024-03-22] MEDS: DESENEX/MITRAZOL/ZEASORB 1 APPLIC TOPICAL (21:51)
[2024-03-22 22:02] LABS: Glucose - Point of Care 135 mg/dl (70-99)
[2024-03-22 23:57] VITALS: BP 130/72
[2024-03-23] VITALS (7 sets, daily range): BP systolic 132–172; BP diastolic 81–95; PULSE 77; O2SAT 95; BMI 35.2
[2024-03-23 06:54] LABS: ALT (SGPT) 13 U/L (0-35); AST (SGOT) 20 U/L (14-36); Albumin 3.4 g/dl (3.5-5.0); Alkaline Phosphatase 51 U/L (38-126); Blood Urea Nitrogen 18 mg/dl (7-17); Calcium 8.2 mg/dl (8.4-10.2); Carbon Dioxide 22 mmol/L (22-30); Chloride 102 mmol/L (98-107); Creatine Phosphokinase 107 U/L (30-135); Estimated Creatinine Clearance 43 ml/min; Glucose 118 mg/dl (70-99); Potassium 3.9 mmol/L (3.5-5.1); Sodium 136 mmol/L (135-145); Total Bilirubin 0.6 mg/dl (0.2-1.3); Total Protein 6.2 g/dl (6.3-8.2)
[2024-03-23 07:03] LABS: Hematocrit 36.2 % (37.0-47.0); Hemoglobin 11.8 g/dL (12.0-16.0); Mean Corp Hgb Conc. 32.6 g/dL (33.0-37.0); Mean Corpuscular Hgb 30.8 pg (27.0-31.0); Mean Corpuscular Volume 94.5 fL (81.0-99.0); Platelet Count 114 10^3/uL (130-400); Red Blood Cell Count 3.83 10^6/uL (4.20-5.40); Red Cell Dist. Width 15.8 % (11.5-14.5); White Blood Cell Count 7.4 10^3/uL (4.8-10.8)
[2024-03-23 08:40] LABS: Glucose - Point of Care 122 mg/dl (70-99)
[2024-03-23] MEDS: NOVOLOG FLEXPEN-LOW RESISTANCE SC ×2 (08:41→17:57)
[2024-03-23] MEDS: TYLENOL 1000 MG PO ×3 (08:41→21:55)
[2024-03-23] MEDS: IMDUR (EXTENDED RELEASE) 60 MG PO (08:42)
[2024-03-23] MEDS: ASPIR LOW (ENTERIC COATED) 81 MG PO (08:42)
[2024-03-23] MEDS: TOPROL XL 50 MG PO (08:42)
[2024-03-23] MEDS: FOLVITE 1 MG PO (08:43)
[2024-03-23] MEDS: DESENEX/MITRAZOL/ZEASORB 1 APPLIC TOPICAL ×2 (08:43→21:55)
[2024-03-23 09:00] LABS: Absolute Neutrophils -Man Diff 3.7 10^3/uL (1.4-6.5); Band Neutrophils 4 % (0-3); Eosinophils 12 % (0-6); Lymphocytes 21 % (20-51); Monocytes 15 % (2-9); Segmented Neutrophils 47 % (42-75)
[2024-03-23 09:01] LABS: Normal RBC Morphology Yes; Platelets Checked Yes
[2024-03-23 09:02] LABS: Total Cells Counted 100
--- NOTE | 2024-03-23 09:21 | PN.CDI ---
CDI
- -
CDI:
Physician Documentation Request
Admit Date: 03/21/24 04:52
Dear Doctor Sylwia,
Clinical Indicators:
Patient admitted with right sided rib fractures post fall.
03/22 PN, 'Elevated CPK- Mildly elevated CPK likely due to muscle injury/trauma.'
IVF: 1L NSS given.
CPK trend:
03/20/24 03/21/24 03/22/24
22:47 05:31 05:47
Creatine Kinase 300 H 298 H 133 D
Based on the above, could you clarify in the progress notes, the appropriate diagnosis, if significant, that supports the above abnormalities and additional evaluation, monitoring and/or treatment rendered:
Traumatic rhabdomyolysis
Elevated CPK only
Other
Use of terms such as suspected, likely, concern for, or probable (associated with a specific diagnosis that is being evaluated, monitored, or treated as if it exists) are acceptable and can be coded in the inpatient setting, when documented at the
time of discharge.
Thank you,
Hermelinda Hammonds RN BSN
CDI Specialist
available via tiger text
Please use your independent medical judgment in providing your response.
--- NOTE | 2024-03-23 09:38 | W.PN.HOSP.TC ---
Today's Communication/Plan
-
wean O2
pain control
continue IV abx
dc planning to a SNF
Assessment / Plan
Assessment / Plan
Assessment:
Acute hypoxic respiratory insufficiency on 2L
- wean as able to RA
Right-Sided Rib Fractures
Fall at Home
- initial ER/hospitalist eval concerning for at least 5 rib fx prompting discussions regarding trauma transfer (see ER notes)
- CT: nondisplaced posterolateral right seventh rib fracture and posterior eighth rib fracture. There is a displaced lateral right ninth and posterior right 10th rib fracture.
- patient refused transfer
- Pain control/supportive care.
- Follow for worsening pain, dyspnea, anemia, etc.
- PT/OT evaluations - SNF recommended
- CM eval for discharge planning/placement.
- Follow for any new/worsening symptoms.
- appreciate pulmonary recs
Traumatic rhabdomyolysis
- Mildly elevated CPK likely due to muscle injury/trauma.
- Received IVFs in the ED.
- Follow for improvement.
Klebsiella UTI with Leukocytosis
- Rocephin, day 3/
Mild Hyponatremia
CKD stage 3b
- Na was 130 on admission, currently 137 after IVF
- cap IVF and encourage oral fluid intake
- f/u urine studies
ASCVD
Benign Hypertension
- Stable. No substernal chest pain, dyspnea, palpitations.
- No prodrome, lightheadedness, etc prior to fall.
- Continue current CV med regimen including ASA, statin, etc.
Diet-Controlled DM
- Follow glucose and cover with SSI if needed.
- A1C. is 6.9%
Psoriatic Arthritis
- Stable. No specific joint pains, etc at present.
- Continue current med regimen.
- Resume MTX if patient still hospitalized Tuesday.
Thrombocytopenia
- no bleeding noted
- monitor CBC
DVT Prophylaxis: SCDs
Code Status: Full
Anticipated Discharge: 24 - 48 hours
Subjective/Interval History
-
Date of Service: March 23, 2024
no complaints
on 2L NC for comfort
Objective Data
-
Labs:
Laboratory Results
03/23/24
05:42
WBC 7.4
Hgb 11.8 L
Hct 36.2 L
Plt Count 114 L D
Sodium 136
Potassium 3.9
Chloride 102
Carbon Dioxide 22
BUN 18 H
Creatinine 1.0
Glucose 118 H
Calcium 8.2 L
Total Bilirubin 0.6
AST 20
ALT 13
Alkaline Phosphatase 51
Vital Signs:
Vital Signs
Temp Pulse Resp BP Pulse Ox
96.5 F L 83 20 143/84 88
03/23/24 08:00 03/23/24 08:00 03/23/24 08:00 03/23/24 03:19 03/23/24 08:00
I&O
03/22/24 03/23/24 03/24/24
06:59 06:59 06:59
Intake Total 940 / 940 960 / 960
Output Total 1650 / 1650 100 / 100
Balance -710 / -710 860 / 860
Physical Exam
-
General: No Apparent Distress
HEENT: Normocephalic and Atraumatic
Respiratory: Negative Wheezes
Cardiac: Regular Rhythm and S1/S2
GI: Soft and Nontender
Musculoskeletal: No Edema
Neuro: AO x 3
Hematologic / Lymphatic: No Lymphadenopathy
Psych: Calm
Data Reviewed
-
Total Time Spent with Patient (in minutes): 41
Labs: Labs Reviewed by me
--- NOTE | 2024-03-23 11:24 | CM ---
Addendum entered by IRLANDA Hoskins 03/23/24 14:53:
Spoke with Portia from admission [facility], who stated that she can offer a bed for patient when medically stable. Will await determination from other requested facilities.
Original Note:
Placed a call to patient's niece, Donya, to obtain information for assessment. Patient's niece stated that patient lives at [facility]. She is primarily independent with her ADLs and personal care. She uses a walker and a w/c for long
distances. Her niece assists her with medication management. The facility helps clean. Patient's niece helps with laundry. She gets her meals at the [facility] at the has not had a problem transporting herself. If patient needs to go off site, her
niece can provide transportation.
Patient's niece was made aware of indication on behalf of PT and attending for SNF prior to her return to [place]. She stated that the family is agreeable. Patient has no children so she and patient's brother and sister are involved. Patient's niece
stated that she would like referrals sent to: [facility], [facility] and [facility].
Will send referrals. Patient has been to a SNF in the past at [facility], however her niece did not want for her to transfer there post this admission.
Plan: Case Management will continue to follow and assist with discharge planning. SNF when stable and bed is found.
--- NOTE | 2024-03-23 12:48 | W.PN.PUL3 ---
Today's Communication / Plan
-
Continue medical management for rib fractures as you are doing
Incentive spirometry
Analgesia
Increase activity as able
Likely will need placement after discharge
Please call if there is any concern for progressive respiratory failure.
Sign off
Assessment
-
83-year-old woman With past medical history noted, admitted on 03/20/2024 PM after sustaining a fall from the standing position and having right sided trauma. Multiple rib fractures were noted on CAT scan. Patient was recommended to go to a trauma
center for if she declined
CT surgery did not recommend any interventions. We were consulted 03/22/2024.
Right-sided rib fractures x 4 s/p fall from the standing position.
CT chest reviewed: Minimal right pleural effusion. No evidence for pulmonary contusion. 2 of the ribs fracture from mildly displaced. No pneumothorax.
EKG reviewed: Normal sinus rhythm. Possible inferior infarct age undetermined. No ST-T wave abnormalities
Rhabdomyolysis-posttrauma
UTI
Condition present prior admission:
Hypertension
Type 2 diabetes diet controlled
Psoriatic arthritis on methotrexate
Coronary artery bypass x 2
History of PTCA with a stent x 4
Bilateral total knee arthroplasty
History of patellar ORIF
Kidney stones with lithotripsy
Assessment and plan:
-
Patient remained stable from the respiratory perspective overnight.
-
Right-sided traumatic rib fractures: Patient fell from the standing position.
CT chest reviewed in detail: There is a tiny right pleural effusion. There is no evidence for pulmonary contusion.
There is no pneumothorax.
Minimal right lower lobe atelectasis. Likely due to splinting.
There is old left rib fractures.
There is postsurgical changes in the sternum.
There is a nondisplaced posterior lateral right seventh rib fracture and posterior eighth rib fracture. There is a displaced lateral right ninth and posterior right 10th rib fracture.
There is a T5 compression fracture.
-
On exam there is no chest wall deformity or flail chest.
On the report chest pain with coughing and deep inspiration.
Able to speak in full sentences.
Patient does not have any history of pulmonary disease.
Currently 94% on room air.
Rib fractures are only mildly displaced x 2. Per CAT scan report.
No evidence for impending respiratory failure.
Chest x-ray as needed, last x-ray 03/21/2024: Showed no acute disease of the chest. Questionable nondisplaced acute posterior right sixth rib fracture. No additional fractures identified.
-
Continue to recommend medical management as you are doing.
Analgesia per primary team: Tramadol/oxycodone/IV Dilaudid as needed for severe pain.
Pulmonary hygiene
Incentive spirometry as able-this was encouraged.
Monitor for respiratory failure at this point not evident.
-
Eventual physical therapy evaluation
Likely will need some placement if unable to be independent due to pain.
-
Antibiotics for UTI per primary team.
-
No additional recommendations from the pulmonary perspective. Please call with questions or concerns if there is progressive respiratory failure.
Sign off
Subjective Data
-
Date of Service:
Date of Service: March 23, 2024
Chief Complaint: Pulmonary Follow Up (Rib fractures)
Subjective:
Continues to report pain with cough and deep inspiration
Denies shortness of breath at rest
Denies hemoptysis
Review of Systems
Cardiopulmonary: Dyspnea (none at rest)
GI: Abdominal Pain (n) and Nausea (n)
Objective Data
Data Reviewed
Vital Signs / I&O / Oxygen:
Vital Signs
Temp Pulse Resp BP Pulse Ox
98.0 F 76 18 143/81 95
03/23/24 10:58 03/23/24 10:58 03/23/24 10:58 03/23/24 10:58 03/23/24 10:58
Intake and Output
03/22/24 03/23/2425
06:59 06:59 06:59
Intake Total 940 / 940 960 / 960
Output Total 1650 / 1650 100 / 100
Balance -710 / -710 860 / 860
SaO2 95
Nasal Cannula flow liters per 2
minute
Physical Exam
General: Comfortable
HEENT: Normocephalic
Respiratory: Clear and Non-Labored Respirations
GI: Non Distended
Neurology: Awake, Oriented and AO x 3
Labs/Micro/Reports
Lab Data
03/23/24 05:42
03/23/24 05:42
Microbiology
03/21/24 09:32 Urine Urine Culture - Final
No Significant Growth
03/22/24 06:18 Nose MRSA Screen - Final
No Methicillin Resistant Staphylococcus aureus isolated.
[2024-03-23 12:52] LABS: Glucose - Point of Care 204 mg/dl (70-99)
[2024-03-23] MEDS: NOVOLOG FLEXPEN-LOW RESISTANCE 2 UNITS SC (12:53)
[2024-03-23 16:29] LABS: Glucose - Point of Care 148 mg/dl (70-99)
[2024-03-23 21:20] LABS: Glucose - Point of Care 105 mg/dl (70-99)
[2024-03-24] MEDS: STERILE WATER FOR INJECTION 10 ML IV (00:01)
[2024-03-24] MEDS: ROCEPHIN 1000 MG IV (00:02)
[2024-03-24 03:00] VITALS: BP 155/88
[2024-03-24 06:00] VITALS: BMI 34.6
[2024-03-24 06:51] LABS: % Basophils 0.4 % (0-2); % Eosinophils 6.8 % (0-6); % Immature Granulocytes 0.4 % (0-0.5); % Monocytes 17.3 % (1.7-9.3); % Neutrophils 55.1 % (42.2-75.2); Absolute Eosinophils 0.5 10^3/uL (0-0.7); Absolute Lymphocytes 1.4 10^3/uL (1.2-3.4); Absolute Monocytes 1.2 10^3/uL (0.1-0.6); Absolute Neutrophils 3.9 10^3/uL (1.4-6.5); Hematocrit 38.5 % (37.0-47.0); Hemoglobin 12.4 g/dL (12.0-16.0); Mean Corp Hgb Conc. 32.2 g/dL (33.0-37.0); Mean Corpuscular Hgb 31.1 pg (27.0-31.0); Mean Corpuscular Volume 96.5 fL (81.0-99.0); Mean Platelet Volume 10.5 fL (7.4-10.4); Nucleated Red Blood Cells % 0 %; Platelet Count 149 10^3/uL (130-400); Red Blood Cell Count 3.99 10^6/uL (4.20-5.40); Red Cell Dist. Width 15.6 % (11.5-14.5); White Blood Cell Count 7.1 10^3/uL (4.8-10.8)
[2024-03-24 07:00] VITALS: BP 168/91
[2024-03-24 07:15] LABS: ALT (SGPT) 14 U/L (0-35); AST (SGOT) 21 U/L (14-36); Alkaline Phosphatase 54 U/L (38-126); Blood Urea Nitrogen 15 mg/dl (7-17); Calcium 8.9 mg/dl (8.4-10.2); Carbon Dioxide 28 mmol/L (22-30); Chloride 100 mmol/L (98-107); Creatine Phosphokinase 87 U/L (30-135); Estimated Creatinine Clearance 48 ml/min; Glucose 111 mg/dl (70-99); Potassium 3.9 mmol/L (3.5-5.1); Sodium 138 mmol/L (135-145); Total Bilirubin 0.7 mg/dl (0.2-1.3); Total Protein 7.1 g/dl (6.3-8.2); eGFR > 60.00
[2024-03-24 08:17] LABS: Glucose - Point of Care 121 mg/dl (70-99)
[2024-03-24] MEDS: NOVOLOG FLEXPEN-LOW RESISTANCE SC ×3 (08:23→17:07)
[2024-03-24] MEDS: ASPIR LOW (ENTERIC COATED) 81 MG PO (08:24)
[2024-03-24] MEDS: IMDUR (EXTENDED RELEASE) 60 MG PO (08:24)
[2024-03-24] MEDS: TOPROL XL 50 MG PO (08:24)
[2024-03-24] MEDS: DESENEX/MITRAZOL/ZEASORB 1 APPLIC TOPICAL ×2 (08:24→22:59)
[2024-03-24] MEDS: FOLVITE 1 MG PO (08:24)
[2024-03-24] MEDS: TYLENOL 1000 MG PO ×3 (08:24→22:59)
--- NOTE | 2024-03-24 09:24 | CM ---
TT received from attending. Patient stable for d/c to snf. Spoke to Portia at [facility] and Justyn at [facility]. No bed this weekend. Portia has bed tuesday. [facility] has bed tuesday or tuesday. Also spoke to Donya Burrell to confirm 1st choice. Donya
prefers [facility] as it is closer. CM left VM for [facility] telling her they are first choice and that bed is needed Tuesday. OTher SNF, [facility] has no beds.
[2024-03-24 11:00] VITALS: BP 148/89
--- NOTE | 2024-03-24 11:01 | W.PN.HOSP.TC ---
Today's Communication/Plan
-
wean O2
encourage IS
DC planning to SNF
Assessment / Plan
Assessment / Plan
Assessment:
Acute hypoxic respiratory insufficiency on 2L
- wean as able to RA
- encourage IS
Right-Sided Rib Fractures
Fall at Home
- initial ER/hospitalist eval concerning for at least 5 rib fx prompting discussions regarding trauma transfer (see ER notes)
- CT: nondisplaced posterolateral right seventh rib fracture and posterior eighth rib fracture. There is a displaced lateral right ninth and posterior right 10th rib fracture.
- patient refused transfer
- Pain control/supportive care.
- Follow for worsening pain, dyspnea, anemia, etc.
- PT/OT evaluations - SNF recommended
- CM eval for discharge planning/placement.
- Follow for any new/worsening symptoms.
- appreciate pulmonary recs
Traumatic rhabdomyolysis
- Mildly elevated CPK likely due to muscle injury/trauma.
- Received IVFs in the ED.
- Follow for improvement.
Klebsiella UTI with Leukocytosis
- Rocephin, day 4/
Mild Hyponatremia
CKD stage 3b
- Na was 130 on admission, currently 137 after IVF
- cap IVF and encourage oral fluid intake
ASCVD
Benign Hypertension
- Stable. No substernal chest pain, dyspnea, palpitations.
- No prodrome, lightheadedness, etc prior to fall.
- Continue current CV med regimen including ASA, statin, etc.
Diet-Controlled DM
- Follow glucose and cover with SSI if needed.
- A1C. is 6.9%
Psoriatic Arthritis
- Stable. No specific joint pains, etc at present.
- Continue current med regimen.
- Resume MTX if patient still hospitalized Tuesday.
Thrombocytopenia
- resolved
DVT Prophylaxis: SCDs
Code Status: Full
Anticipated Discharge: > 48 hours
Subjective/Interval History
-
Date of Service: March 24, 2024
no complaints presently
working with IS
on 1-2 L NC
Objective Data
-
Labs:
Laboratory Results
03/24/24
06:39
WBC 7.1
Hgb 12.4
Hct 38.5
Plt Count 149 D
Sodium 138
Potassium 3.9
Chloride 100
Carbon Dioxide 28
BUN 15
Creatinine 0.9
Glucose 111 H
Calcium 8.9
Total Bilirubin 0.7
AST 21
ALT 14
Alkaline Phosphatase 54
Vital Signs:
Vital Signs
Temp Pulse Resp BP Pulse Ox
97.6 F 74 18 168/91 98
03/24/24 07:00 03/24/24 07:00 03/24/24 07:00 03/24/24 07:00 03/24/24 07:00
I&O
03/23/24 03/24/24 03/25/24
06:59 06:59 06:59
Intake Total 960 / 960 840 / 840 960 / 960
Output Total 100 / 100
Balance 860 / 860 840 / 840 960 / 960
Physical Exam
-
General: No Apparent Distress
HEENT: Normocephalic and Atraumatic
Respiratory: Negative Wheezes
Cardiac: Regular Rhythm and S1/S2
GI: Soft and Nontender
Genito-urinary: No Costovertebral Tender
Neuro: AO x 3
Hematologic / Lymphatic: No Lymphadenopathy
Psych: Calm
Data Reviewed
-
Total Time Spent with Patient (in minutes): 42
Labs: Labs Reviewed by me
[2024-03-24] MEDS: METHOTREXATE 15 MG PO (11:57)
[2024-03-24] MEDS: NORVASC 2.5 MG PO (12:07)
[2024-03-24 15:00] VITALS: BP 124/79
[2024-03-24 17:06] LABS: Glucose - Point of Care 131 mg/dl (70-99)
[2024-03-24 19:00] VITALS: BP 124/81
[2024-03-24 21:42] LABS: Glucose - Point of Care 122 mg/dl (70-99)
[2024-03-24 23:00] VITALS: BP 166/95
[2024-03-25] MEDS: STERILE WATER FOR INJECTION 10 ML IV ×2 (01:33→23:06)
[2024-03-25] MEDS: ROCEPHIN 1000 MG IV ×2 (01:34→23:07)
[2024-03-25 03:00] VITALS: BP 138/90
[2024-03-25 06:00] VITALS: BMI 34.5
[2024-03-25 07:00] VITALS: BP 133/86
[2024-03-25] MEDS: NOVOLOG FLEXPEN-LOW RESISTANCE SC ×2 (07:17→17:51)
[2024-03-25] MEDS: TYLENOL 1000 MG PO ×3 (07:58→21:29)
[2024-03-25] MEDS: FOLVITE 1 MG PO (07:59)
[2024-03-25] MEDS: ASPIR LOW (ENTERIC COATED) 81 MG PO (07:59)
[2024-03-25] MEDS: ZETIA 10 MG PO (07:59)
[2024-03-25] MEDS: TOPROL XL 50 MG PO (07:59)
[2024-03-25] MEDS: IMDUR (EXTENDED RELEASE) 60 MG PO (07:59)
[2024-03-25] MEDS: DESENEX/MITRAZOL/ZEASORB 1 APPLIC TOPICAL ×2 (08:00→20:14)
[2024-03-25] MEDS: NORVASC 2.5 MG PO (08:00)
[2024-03-25 08:13] LABS: Glucose - Point of Care 226 mg/dl (70-99)
[2024-03-25] MEDS: NOVOLOG FLEXPEN-LOW RESISTANCE 2 UNITS SC (08:18)
--- NOTE | 2024-03-25 10:25 | CM ---
Addendum entered by Olya Claire 03/25/24 12:22:
Call received from Alexandria @ [facility], can accept pt tomorrow 03/26/24.
Original Note:
CM following re: d/c planning.
Pt nearing d/c.
Plan is for SNF -
[facility] can accept, pending bed, which will not be available until Tuesday or . This is first choice SNF.
[facility] can accept, pending bed, available Tuesday.
Call placed to Alexandria at [facility], informed her this is pt's first choice and asked to be guaranteed bed for tomorrow.
She will call CM back later today with update.
Message sent to Portia at [facility]3] re: confirmation of bed availability for tomorrow.
Goal: SNF - [facility] vs. [facility]3].
[2024-03-25 11:00] VITALS: BP 122/74
[2024-03-25 11:55] LABS: Glucose - Point of Care 152 mg/dl (70-99)
[2024-03-25] MEDS: NOVOLOG FLEXPEN-LOW RESISTANCE 1 UNITS SC (12:51)
--- NOTE | 2024-03-25 13:01 | W.PN.HOSP.TC ---
Today's Communication/Plan
-
wean O2
IS
pain control
dc planning to SNF in 24 hours
Assessment / Plan
Assessment / Plan
Assessment:
Acute hypoxic respiratory insufficiency on 2L
- wean as able to RA
- encourage IS
Right-Sided Rib Fractures
Fall at Home
- initial ER/hospitalist eval concerning for at least 5 rib fx prompting discussions regarding trauma transfer (see ER notes)
- CT: nondisplaced posterolateral right seventh rib fracture and posterior eighth rib fracture. There is a displaced lateral right ninth and posterior right 10th rib fracture.
- patient refused transfer
- Pain control/supportive care.
- Follow for worsening pain, dyspnea, anemia, etc.
- PT/OT evaluations - SNF recommended
- CM eval for discharge planning/placement.
- Follow for any new/worsening symptoms.
- appreciate pulmonary recs
Traumatic rhabdomyolysis
- Mildly elevated CPK likely due to muscle injury/trauma.
- Received IVFs in the ED.
- Follow for improvement.
Klebsiella UTI with Leukocytosis
- Rocephin, day 5/
Mild Hyponatremia
CKD stage 3b
- Na was 130 on admission, currently 137 after IVF
- cap IVF and encourage oral fluid intake
ASCVD
Benign Hypertension
- Stable. No substernal chest pain, dyspnea, palpitations.
- No prodrome, lightheadedness, etc prior to fall.
- Continue current CV med regimen including ASA, statin, etc.
Diet-Controlled DM
- Follow glucose and cover with SSI if needed.
- A1C. is 6.9%
Psoriatic Arthritis
- Stable. No specific joint pains, etc at present.
- Continue current med regimen.
- Resume MTX if patient still hospitalized Tuesday.
Thrombocytopenia
- resolved
DVT Prophylaxis: SCDs
Code Status: Full
Anticipated Discharge: Within 24 hours
Subjective/Interval History
-
Date of Service: March 25, 2024
no new complaints
Objective Data
-
Vital Signs:
Vital Signs
Temp Pulse Resp BP Pulse Ox
97.2 F 69 16 122/74 98
03/25/24 11:00 03/25/24 11:00 03/25/24 11:00 03/25/24 11:00 03/25/24 11:00
I&O
03/24/24 03/25/24 03/26/24
06:59 06:59 06:59
Intake Total 840 / 840 2880 / 2880
Balance 840 / 840 2880 / 2880
Physical Exam
-
General: No Apparent Distress
HEENT: Normocephalic and Atraumatic
Respiratory: Negative Wheezes
Cardiac: Regular Rhythm and S1/S2
GI: Soft and Nontender
Genito-urinary: No Costovertebral Tender
Musculoskeletal: No Edema
Neuro: AO x 3
Hematologic / Lymphatic: No Lymphadenopathy
Psych: Calm
Data Reviewed
-
Total Time Spent with Patient (in minutes): 41
Labs: Labs Reviewed by me
[2024-03-25 16:56] VITALS: BP 123/75
[2024-03-25 17:47] LABS: Glucose - Point of Care 117 mg/dl (70-99)
[2024-03-25 19:13] VITALS: BP 128/74
[2024-03-25 21:22] LABS: Glucose - Point of Care 181 mg/dl (70-99)
[2024-03-25 22:17] VITALS: BP 138/78
[2024-03-26 03:34] VITALS: BP 124/71
[2024-03-26 06:00] VITALS: BMI 34.2
[2024-03-26 07:35] VITALS: BP 150/83
[2024-03-26] MEDS: TOPROL XL 50 MG PO (08:57)
[2024-03-26] MEDS: TYLENOL 1000 MG PO (08:57)
[2024-03-26] MEDS: NORVASC 2.5 MG PO (08:57)
[2024-03-26] MEDS: ZETIA 10 MG PO (08:58)
[2024-03-26] MEDS: FOLVITE 1 MG PO (08:58)
[2024-03-26] MEDS: IMDUR (EXTENDED RELEASE) 60 MG PO (08:58)
[2024-03-26] MEDS: ASPIR LOW (ENTERIC COATED) 81 MG PO (08:58)
[2024-03-26] MEDS: DESENEX/MITRAZOL/ZEASORB 1 APPLIC TOPICAL (09:03)
--- NOTE | 2024-03-26 09:03 | CM ---
Patient accepted for transfer to SNF today. Please call report number [phone] fax [phone]. CM will complete ambulance transfer forms and Patient bed is available after 1:30 pm. CM will review IMM with patient. CM will continue to follow
for discharge planning needs.
Plan; [facility] today
[2024-03-26 10:15] LABS: Glucose - Point of Care 167 mg/dl (70-99)
[2024-03-26] MEDS: NOVOLOG FLEXPEN-LOW RESISTANCE 1 UNITS SC (10:21)
[2024-03-26] MEDS: MIRALAX 17 GRAMS PO (10:22)
[2024-03-26] MEDS: SENOKOT-S 1 TABLET PO (10:23)
--- NOTE | 2024-03-26 10:42 | W.PN.HOSP.TC ---
Today's Communication/Plan
-
dc to SNF
Assessment / Plan
Assessment / Plan
Assessment:
Acute hypoxic respiratory insufficiency on 2L
- wean as able to RA
- encourage IS
Right-Sided Rib Fractures
Fall at Home
- initial ER/hospitalist eval concerning for at least 5 rib fx prompting discussions regarding trauma transfer (see ER notes)
- CT: nondisplaced posterolateral right seventh rib fracture and posterior eighth rib fracture. There is a displaced lateral right ninth and posterior right 10th rib fracture.
- patient refused transfer
- Pain control/supportive care.
- Follow for worsening pain, dyspnea, anemia, etc.
- PT/OT evaluations - SNF recommended
- CM eval for discharge planning/placement.
- Follow for any new/worsening symptoms.
- appreciate pulmonary recs
Traumatic rhabdomyolysis
- Mildly elevated CPK likely due to muscle injury/trauma.
- Received IVFs in the ED.
- Follow for improvement.
Klebsiella UTI with Leukocytosis
- Rocephin, day 5/10; at dc transition to Cefdinir x 5 days further
Mild Hyponatremia
CKD stage 3b
- Na was 130 on admission, currently 137 after IVF
- cap IVF and encourage oral fluid intake
ASCVD
Benign Hypertension
- Stable. No substernal chest pain, dyspnea, palpitations.
- No prodrome, lightheadedness, etc prior to fall.
- Continue current CV med regimen including ASA, statin, etc.
Diet-Controlled DM
- Follow glucose and cover with SSI if needed.
- A1C. is 6.9%
Psoriatic Arthritis
- Stable. No specific joint pains, etc at present.
- Continue current med regimen.
- Resume MTX if patient still hospitalized Tuesday.
Thrombocytopenia
- resolved
DVT Prophylaxis: SCDs
Code Status: Full
More than 30 minutes spent in discharge including
Final examination of the patient
Summarizing hospital stay
Instructions for continuing care to all relevant caregivers
Preparation of discharge records, prescriptions, and referral forms
Total time spent (in minutes): 41
Anticipated Discharge: Today
Subjective/Interval History
-
Date of Service: March 26, 2024
no new complaints at present
Objective Data
-
Vital Signs:
Vital Signs
Temp Pulse Resp BP Pulse Ox
98.7 F 76 17 150/83 98
03/26/24 07:35 03/26/24 08:57 03/26/24 07:35 03/26/24 08:57 03/26/24 07:35
I&O
03/25/24 03/26/24 03/27/24
06:59 06:59 06:59
Intake Total 2880 / 2880 1920 / 1920 420 / 420
Balance 2880 / 2880 1920 / 1920 420 / 420
Physical Exam
-
General: No Apparent Distress
HEENT: Normocephalic and Atraumatic
Respiratory: Negative Wheezes
Cardiac: Regular Rhythm and S1/S2
GI: Soft and Nontender
Genito-urinary: No Costovertebral Tender
Musculoskeletal: No Edema
Neuro: AO x 3
Psych: Calm
Data Reviewed
-
Total Time Spent with Patient (in minutes): 41
Labs: Labs Reviewed by me
--- NOTE | 2024-03-26 10:48 | W.DS.TRANS ---
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
-
Discharge Instructions:
Discharge Diagnosis/Procedures fall with 4 right sided rib fractures (7, 8, 9,
10), hypoxia. UTI
Diet Diabetic, Carb Controlled
Activity As tolerated
Bathing Restrictions None
Other Services OT,PT
Instructions:
Stand-Alone Forms:
Changes to Home Medications: No
Discharge Medications:
DC Medications w/original date entered in [facility]
isosorbide mononitrate 60 mg tablet,extended release 24 hr 60 mg PO DAILY Heart disease/condition 05/05/21
methotrexate sodium 2.5 mg tablet 15 mg PO SA arthritis 05/05/21
pravastatin 10 mg tablet 10 mg PO DAILY High cholesterol 05/05/21
aspirin 81 mg tablet,delayed release 81 mg PO DAILY Blood clot prevention/tx 08/11/21
metoprolol succinate 50 mg tablet,extended release 24 hr 50 mg PO DAILY Blood pressure 08/11/21
calcium carbonate 600 mg PO DAILY Supplement 06/06/22
folic acid 1 mg tablet 1 mg PO DAILY Supplement 06/06/22
cholecalciferol (vitamin D3) 50 mcg (2,000 unit) tablet 50 mcg PO DAILY Supplement 07/13/23
ezetimibe 10 mg tablet 10 mg PO DAILY High Cholesterol 07/13/23
potassium chloride 20 mEq tablet,extended release(part/cryst) 20 meq PO DAILY Electrolyte Repletion 07/13/23
amlodipine 2.5 mg tablet 2.5 mg PO DAILY Blood Pressure 03/21/24
cranberry extract 200 mg capsule (Ellura) 200 mg PO DAILY Supplement 03/21/24
vibegron 75 mg tablet (Gemtesa) 75 mg PO DAILY Urinary Issue 03/21/24
acetaminophen 325 mg tablet 650 mg (2 x 325 mg) PO Q6HPRN PRN mild pain/ fever>100.5F #100 tabs 03/26/24
acetaminophen 500 mg tablet (Tylenol Extra Strength) 1,000 mg (2 x 500 mg) PO TID #100 tabs 03/26/24
albuterol sulfate 2.5 mg/3 mL (0.083 %) solution for nebulization 2.5 mg (3 mL) inhalation R Q4HPRN PRN SOB #75 mL 03/26/24
cefdinir 300 mg capsule 300 mg PO BID #10 caps 03/26/24
polyethylene glycol 3350 17 gram oral powder packet 17 g PO DAILY #30 ea 03/26/24
sennosides 8.6 mg-docusate sodium 50 mg tablet 1 tab PO BID #60 tabs 03/26/24
tramadol 50 mg tablet 25 mg (1/2 x 50 mg) PO Q6HPRN PRN moderate pain #10 tabs 03/26/24
Home Medication Changes
Pending Results: No
Total time spent discharging patient (in min): 41
[2024-03-26 11:25] VITALS: BP 136/90
[2024-03-26 11:43] LABS: Glucose - Point of Care 145 mg/dl (70-99)
[2024-03-26] MEDS: NOVOLOG FLEXPEN-LOW RESISTANCE SC (11:55)
[2024-03-26] MEDS: DUPHALAC/CHRONULAC 20 GRAMS PO (13:49)
[2024-03-26 15:15] VITALS: BP 130/80
--- NOTE | 2024-03-26 15:20 | PTCARENOTE ---
at 0907, kyra texted as patient has not had BM in 4 days, passing flatus though. Dr. Dao ordered Senokot and Miralax. no stool yet. At 13:25, patient still with no BM, kyra texted Dr. Dao notified and ordered Lactulose x1 dose.
patient weaned to room air with sao2 95%. discharged to [facility].
== END 2024-03-26 15:25 | DRG 184 ==
LOC: 3 WEST ACU 04:52
PROVIDERS: ADMITTING PHYSICIAN Hospitalist; ATTENDING PHYSICIAN Internal Medicine; CONSULT PHYSICIAN Internal Medicine Critical Care Medicine; EMERGENCY PHYSICIAN Student in an Organized Health Care Education/Training Program; FAMILY PHYSICIAN Internal Medicine Geriatric Medicine
DX: S22.41XA Multiple fractures of ribs, right side, initial encounter for closed fracture (principal); E87.1 Hypo-osmolality and hyponatremia; S22.050A Wedge compression fracture of T5-T6 vertebra, initial encounter for closed fracture; N39.0 Urinary tract infection, site not specified; I13.0 Hypertensive heart and chronic kidney disease with heart failure and stage 1 through stage 4 chronic kidney disease, or unspecified chronic kidney disease; I50.32 Chronic diastolic (congestive) heart failure; J98.11 Atelectasis; M48.54XA Collapsed vertebra, not elsewhere classified, thoracic region, initial encounter for fracture; T79.6XXA Traumatic ischemia of muscle, initial encounter; B96.1 Klebsiella pneumoniae [K. pneumoniae] as the cause of diseases classified elsewhere; R09.02 Hypoxemia; R06.89 Other abnormalities of breathing; W01.0XXA Fall on same level from slipping, tripping and stumbling without subsequent striking against object, initial encounter; E11.22 Type 2 diabetes mellitus with diabetic chronic kidney disease; N18.32 Chronic kidney disease, stage 3b; L40.50 Arthropathic psoriasis, unspecified; D69.6 Thrombocytopenia, unspecified; I25.10 Atherosclerotic heart disease of native coronary artery without angina pectoris; N32.81 Overactive bladder; Z95.1 Presence of aortocoronary bypass graft; Z95.5 Presence of coronary angioplasty implant and graft; Z96.653 Presence of artificial knee joint, bilateral; Z85.828 Personal history of other malignant neoplasm of skin; Z88.0 Allergy status to penicillin; Z79.82 Long term (current) use of aspirin; Z79.899 Other long term (current) drug therapy
CPT/HCPCS: 71045; 71046; 71260; 72170; 80048; 80053; 81003; 81015; 82550; 82962; 83036; 83935; 84300; 84484; 85025; 85027; 87070; 87086; 93005; 97116; 97530; J8610; Q9967

== ENCOUNTER → 2024-03-29 11:50 | Outpatient (REF) | payer MEDICARE, BC, SELFPAY ==
[2024-03-29 12:25] LABS: Hematocrit 35.6 % (37.0-47.0); Hemoglobin 11.3 g/dL (12.0-16.0); Mean Corp Hgb Conc. 31.7 g/dL (33.0-37.0); Mean Corpuscular Hgb 31.4 pg (27.0-31.0); Mean Corpuscular Volume 98.9 fL (81.0-99.0); Mean Platelet Volume 10.6 fL (7.4-10.4); Platelet Count 281 10^3/uL (130-400); Red Cell Dist. Width 15.8 % (11.5-14.5); White Blood Cell Count 7.5 10^3/uL (4.8-10.8)
[2024-03-29 12:35] LABS: ALT (SGPT) 22 U/L (0-35); AST (SGOT) 26 U/L (14-36); Albumin 3.7 g/dl (3.5-5.0); Alkaline Phosphatase 64 U/L (38-126); Blood Urea Nitrogen 15 mg/dl (7-17); Calcium 9.2 mg/dl (8.4-10.2); Carbon Dioxide 26 mmol/L (22-30); Chloride 100 mmol/L (98-107); Glucose 109 mg/dl (70-99); Magnesium 2.1 mg/dl (1.6-2.3); Potassium 4.2 mmol/L (3.5-5.1); Sodium 135 mmol/L (135-145); Total Bilirubin 0.8 mg/dl (0.2-1.3); Total Protein 6.2 g/dl (6.3-8.2); eGFR > 60.00
== END ==
LOC: OLABWHC 11:50
PROVIDERS: ATTENDING PHYSICIAN Family Medicine
DX: I10 Essential (primary) hypertension (principal); E11.9 Type 2 diabetes mellitus without complications; E78.5 Hyperlipidemia, unspecified; E87.1 Hypo-osmolality and hyponatremia; Z79.02 Long term (current) use of antithrombotics/antiplatelets
CPT/HCPCS: 36415; 80053; 83735; 85027

== ENCOUNTER → 2024-06-13 | Outpatient (REF) | payer MEDICARE, BC, SELFPAY ==
[2024-06-14 11:20] LABS: Urine Albumin 2+ (Neg - Trace); Urine Bilirubin Negative (Negative); Urine Character Slightly Cloudy (Clear); Urine Color Yellow; Urine Glucose Negative (Negative); Urine Ketone Negative (Negative); Urine Leukocyte 3+ (Negative); Urine Nitrite Negative (Negative); Urine Occult Blood 3+ (Negative); Urine Urobilinogen Negative (Neg - 1+)
[2024-06-14 11:45] LABS: Urine Squamous Cell 16-20 /LPF (Few)
[2024-06-14 11:46] LABS: Urine Red Blood Cell 0-2 /HPF (0-2); Urine White Cell >100 /HPF (0-5)
[2024-06-14 11:47] LABS: Urine Bacteria Many (Negative)
== END ==
LOC: OLABMERCHI
PROVIDERS: FAMILY PHYSICIAN Internal Medicine Geriatric Medicine
DX: N39.0 Urinary tract infection, site not specified (principal); R82.90 Unspecified abnormal findings in urine; R35.0 Frequency of micturition
CPT/HCPCS: 81003; 81015; 87077; 87086

== ENCOUNTER → 2024-07-07 09:30 | Outpatient (REF) | payer MEDICARE, BC, SELFPAY ==
[2024-07-07 10:24] LABS: % Basophils 1.1 % (0-2); % Eosinophils 11.4 % (0-6); % Immature Granulocytes 0.4 % (0-0.5); % Lymphocytes 27.4 % (20.5-51.1); % Monocytes 15.9 % (1.7-9.3); % Neutrophils 43.8 % (42.2-75.2); Absolute Basophils 0.1 10^3/uL (0-0.2); Absolute Eosinophils 0.6 10^3/uL (0-0.7); Absolute Lymphocytes 1.5 10^3/uL (1.2-3.4); Absolute Monocytes 0.9 10^3/uL (0.1-0.6); Absolute Neutrophils 2.5 10^3/uL (1.4-6.5); Hematocrit 40.9 % (37.0-47.0); Hemoglobin 13.1 g/dL (12.0-16.0); Mean Corpuscular Hgb 30.6 pg (27.0-31.0); Mean Corpuscular Volume 95.6 fL (81.0-99.0); Mean Platelet Volume 11.5 fL (7.4-10.4); Nucleated Red Blood Cells % 0 %; Platelet Count 148 10^3/uL (130-400); Red Blood Cell Count 4.28 10^6/uL (4.20-5.40); Red Cell Dist. Width 15.9 % (11.5-14.5); White Blood Cell Count 5.6 10^3/uL (4.8-10.8)
[2024-07-07 11:09] LABS: ALT (SGPT) 17 U/L (0-35); AST (SGOT) 19 U/L (14-36); Albumin 4.4 g/dl (3.5-5.0); Alkaline Phosphatase 53 U/L (38-126); Blood Urea Nitrogen 22 mg/dl (7-17); Calcium 10.1 mg/dl (8.4-10.2); Carbon Dioxide 28 mmol/L (22-30); Chloride 108 mmol/L (98-107); Glucose 119 mg/dl (70-99); HDL Cholesterol 62 mg/dl; LDL Cholesterol, Calculated 69 mg/dl; Potassium 4.7 mmol/L (3.5-5.1); Sodium 142 mmol/L (135-145); Total Bilirubin 0.6 mg/dl (0.2-1.3); Total Cholesterol 150 mg/dl (50-199); Total Protein 7.6 g/dl (6.3-8.2); Triglyceride 96 mg/dl (10-149); Very Low Density Lipoprotein 19 mg/dl (0-30); eGFR 50.17
[2024-07-07 12:31] LABS: Glycohemoglobin (HgbA1c) 6.6 % (4.0-5.6)
== END ==
LOC: REG 09:30
PROVIDERS: ATTENDING PHYSICIAN Internal Medicine Geriatric Medicine
DX: E11.69 Type 2 diabetes mellitus with other specified complication (principal); R30.0 Dysuria; I10 Essential (primary) hypertension; E78.2 Mixed hyperlipidemia; R06.00 Dyspnea, unspecified; I25.2 Old myocardial infarction; R26.89 Other abnormalities of gait and mobility; M70.72 Other bursitis of hip, left hip; Z13.89 Encounter for screening for other disorder; E11.42 Type 2 diabetes mellitus with diabetic polyneuropathy; I25.10 Atherosclerotic heart disease of native coronary artery without angina pectoris
CPT/HCPCS: 36415; 80053; 80061; 83036; 85025

== ENCOUNTER → 2024-08-20 10:31 | Outpatient (REF) | payer MEDICARE, BC, SELFPAY | LOC: RAD 10:31 | PROVIDERS: ATTENDING PHYSICIAN Urology; FAMILY PHYSICIAN Internal Medicine Geriatric Medicine | DX: N20.0 Calculus of kidney (principal) | CPT/HCPCS: 76775 ==

== ENCOUNTER 2024-08-23 00:20 | Inpatient (IN) | payer MEDICARE, BC, SELFPAY ==
[2024-08-22 19:52] VITALS: BMI 36.3
[2024-08-22 19:54] VITALS: BP 154/84
[2024-08-22 20:30] LABS: Hematocrit 41.0 % (37.0-47.0); Hemoglobin 13.5 g/dL (12.0-16.0); Mean Corp Hgb Conc. 32.9 g/dL (33.0-37.0); Mean Corpuscular Volume 91.7 fL (81.0-99.0); Nucleated Red Blood Cells % 0 %; Platelet Count 125 10^3/uL (130-400); Red Cell Dist. Width 15.8 % (11.5-14.5)
[2024-08-22 20:37] VITALS: BP 156/81
[2024-08-22 20:40] LABS: COVID-19 Antigen Negative (Negative)
[2024-08-22 20:48] LABS: ALT (SGPT) 20 U/L (0-35); AST (SGOT) 30 U/L (14-36); Albumin 4.6 g/dl (3.5-5.0); Alkaline Phosphatase 49 U/L (38-126); Blood Urea Nitrogen 19 mg/dl (7-17); Calcium 10.0 mg/dl (8.4-10.2); Carbon Dioxide 22 mmol/L (22-30); Chloride 105 mmol/L (98-107); Estimated Creatinine Clearance 44 ml/min; Glucose 140 mg/dl (70-99); Potassium 4.4 mmol/L (3.5-5.1); Sodium 134 mmol/L (135-145); Total Protein 7.7 g/dl (6.3-8.2); eGFR 56.25
[2024-08-22] MEDS: OFIRMEV 100 IV (20:50)
[2024-08-22 21:00] VITALS: BP 146/82
--- NOTE | 2024-08-22 21:08 | ED.GENMED ---
History of Present Illness
General
Chief Complaint: Fever
Time Seen by Provider: 08/22/24 20:54
History of Present Illness
History of Present Illness:
84-year-old female history of CHF, CAD, hypertension, hyperlipidemia presenting with fever, decreased p.o. intake and generalized weakness starting 1 day ago. Family reports episode of vomiting earlier today and 1 episode of diarrhea 4 days ago on
08/18. Family reports chronic cough unchanged from baseline. Patient denies chest pain, shortness of breath, abdominal pain, dysuria or hematuria.
Past History
Past History
ED Past Medical History: CAD, CHF, HTN and Other (Renal calculi)
ED Past Surgical History: Cardiac
Social History
Tobacco: Non-smoker
Alcohol: None
Drug: None
Personal:
Living: assisted living
Employment: Retired
Phy Exam
Physical Exam
Physical Exam:
General: Alert, no acute distress
Head: NCAT
Eyes: clear conjunctiva
Neck: supple
Cardiac: regular rate and rhythm, no murmur
Lungs: clear to auscultation bilaterally. No wheezes, rales, or rhonchi. Speaking full unlabored sentences. No respiratory distress.
Abdomen: soft, nondistended nontender. No rebound or guarding.
MSK: no lower extremity edema bilaterally. No deformity
Skin: warm, dry
Neuro: Alert and oriented x3. no focal deficits
Course
Orders/Labs/Results
Orders:
Orders
08/22/24 20:11
COVID-19 Antigen Urgent
Source: Nasal Swab
Complete Blood Count/With Diff Urgent
Comprehensive Metabolic Panel Urgent
Lactic Acid Urgent
Blood Culture Urgent
JOSE Source: Blood/Venous
Specimen Description:
Influenza A+B Rapid Molecular Urgent
JOSE Source: Nasal Swab
Specimen Description:
08/22/24 20:43
Acetaminophen 1000MG/100Ml [Ofirmev] 1,000 mg in 100 ml IV ONCE
Acetaminophen IV Indication:: Targeted Temp Management
08/22/24 21:12
CXR2 [CR Chest - 2 Views ] Urgent
Comment:
Reason For Exam: fever
08/22/24 21:13
0.9% Sodium Chloride 1000 ml [Nss] 1,000 ml IV BOLUS
08/22/24 21:41
Blood Culture Urgent
JOSE Source: Blood/Venous
Specimen Description:
08/22/24 21:54
UA Reflex to Culture [Urinalysis Reflex To Culture] Urgent
Date Specimen was Collected: 08/22/24
Time Specimen was Collected: 21:38
Urine Microscopic Reflex Cult Urgent
Urine Culture Urgent
JOSE Source: U
Specimen Description:
Date Specimen was Collected: 08/22/24
Time Specimen was Collected: 21:38
08/22/24 22:18
CefTRIAXone [Rocephin] 1,000 mg IV NOW STA
Abnormal Lab Results
08/22/24 08/22/24
20:11 21:54
MCHC 32.9 L g/dL
(33.0-37.0)
RDW 15.8 H %
(11.5-14.5)
Plt Count 125 L 10^3/uL
(130-400)
MPV 10.7 H fL
(7.4-10.4)
Abs Immat Gran (auto) 0.1 H 10^3/uL
(0-0.05)
Absolute Neuts (auto) 8.3 H 10^3/uL
(1.4-6.5)
Absolute Lymphs (auto) 0.7 L 10^3/uL
(1.2-3.4)
Absolute Monos (auto) 1.2 H 10^3/uL
(0.1-0.6)
Immature Gran % 0.9 H %
(0-0.5)
Neutrophils % 80.7 H %
(42.2-75.2)
Lymphocytes % 6.3 L %
(20.5-51.1)
Monocytes % 11.8 H %
(1.7-9.3)
Sodium 134 L mmol/L
(135-145)
BUN 19 H mg/dl
(7-17)
Glucose 140 H mg/dl
(70-99)
Ur Occult Blood Reflex 3+ A
(Negative)
Urine Nitrite (Reflex) Positive A
(Negative)
Leukocyte Esterase Rfl 3+ A
(Negative)
Urine RBC 3-6 A /HPF
(0-2)
Urine WBC (Reflex) >100 A /HPF
(0-5)
Urine Bacteria (Reflex) Many A
(Negative)
Urine Albumin (Reflex) 3+ A
(Neg - Trace)
08/22/24 20:11
08/22/24 20:11
Vital Signs
Initial and Last Documented VS:
Initial Vital Signs
Temp Pulse Resp BP Pulse Ox
102.1 F H 87 16 154/84 95
08/22/24 19:54 08/22/24 19:54 08/22/24 19:54 08/22/24 19:54 08/22/24 19:54
Last Documented Vital Signs
Temp Pulse Resp BP Pulse Ox
102.1 F H 73 10 127/79 93
08/22/24 19:54 08/22/24 22:32 08/22/24 22:32 08/22/24 21:47 08/22/24 22:32
MDM/Problems Addressed
Differential Diagnosis Includes:
UTI, pneumonia, viral infection, bacteremia
MDM/Problems Addressed:
84-year-old female presenting with fever, generalized weakness and decreased p.o. intake starting 1 day ago. Patient episode of vomiting today, diarrhea on Tuesday. On arrival patient febrile to 102.1. Labs reviewed, significant for WBC 10.3
with left shift. Lactic acid 1.2. COVID-negative. UA concerning for UTI. Ordered Ceftriaxone. CXR shows no acute infiltrate or consolidation. Discussed results with family and patient. Discussed with hospitalist for admission
*Pulse Oximetry
SaO2: 89
Oxygen Mode of Delivery: Room air
Patient hypoxic: no
*Critical Care Note
Total Time (30-74mins, 75-104mins- exclusive of procedures): Not Applicable
ED Attending Note
-
Portions of this chart may have been created with voice recognition software.� Occasional wrong word or��sound alike� substitutions may have occurred due to the inherent limitations of voice recognition software.
Discharge Plan
Departure
Patient Disposition: Admit
Date of Disposition: 08/22/24
Time of Disposition: 22:42
Presentation/result/management discussed w/ accepting MD/DO: Hospitalist
Discharge Problem:
UTI (urinary tract infection)
Prescriptions:
No Action
isosorbide mononitrate 60 MG tablet extended release 24 hr
60 mg PO DAILY
pravastatin 10 MG tablet
10 mg PO DAILY
methotrexate sodium 2.5 MG tablet
15 mg PO SA
metoprolol succinate 50 MG tablet extended release 24 hr
50 mg PO DAILY
aspirin 81 MG tablet,delayed release (DR/EC)
81 mg PO DAILY
folic acid 1 mg Tablet
1 mg PO DAILY
calcium carbonate 500 mg calcium (1,250 mg) Tablet
600 mg PO DAILY
potassium chloride 20 mEq tablet,ER particles/crystals
20 meq PO DAILY
ezetimibe 10 mg Tablet
10 mg PO DAILY
cholecalciferol (vitamin D3) 50 mcg (2,000 unit) Tablet
50 mcg PO DAILY
amlodipine 2.5 mg Tablet
2.5 mg PO DAILY
cranberry extract [Ellura] 200 mg Capsule
200 mg PO DAILY
Gemtesa 75 mg Tablet
75 mg PO DAILY
cefdinir 300 mg capsule
300 mg PO BID Qty: 10 0RF
Rx Instructions:
tolerated Ceftriaxone in hospital
albuterol sulfate 2.5 mg /3 mL (0.083 %) Solution For Nebulization
2.5 mg inhalation R Q4HPRN PRN (Reason: SOB) Qty: 75 0RF
acetaminophen 325 mg Tablet
650 mg PO Q6HPRN PRN (Reason: mild pain/ fever>100.5F) Qty: 100 0RF
acetaminophen [Tylenol Extra Strength] 500 mg Tablet
1,000 mg PO TID Qty: 100 0RF
sennosides-docusate sodium 8.6-50 mg Tablet
1 tab PO BID Qty: 60 0RF
tramadol 50 mg Tablet
25 mg PO Q6HPRN PRN (Reason: moderate pain) Qty: 10 0RF
polyethylene glycol 3350 17 gram Powder In Packet
17 g PO DAILY Qty: 30 0RF
Referrals:
Marcos Brunson MD [Family Provider, Internal Medicine]
Interventions
Interventions:
*Risk Screen - Suicide Last Done: 08/22/24 19:55
*General Assessment Last Done: 08/22/24 20:29
*Neglect/Abuse Screening Last Done: 08/22/24 19:55
*ED- Fall Risk Assessment Last Done: 08/22/24 20:29
ED- Neurological Assessment Last Done: 08/22/24 20:29
Discharge Date and Time
Print Language: GERMAN
[2024-08-22 21:30] VITALS: BP 132/75
[2024-08-22 21:47] VITALS: BP 127/79
[2024-08-22] MEDS: NSS 1000 IV (21:50)
[2024-08-22 22:02] LABS: Urine Character Slightly Cloudy (Clear)
[2024-08-22 22:10] LABS: Urine Squamous Cell 0-2 /LPF (Few)
[2024-08-22 22:11] LABS: Urine White Cell >100 /HPF (0-5)
[2024-08-22] MEDS: ROCEPHIN 1000 MG IV (22:26)
--- NOTE | 2024-08-22 23:19 | HPS.HSE ---
Family Physician
-
Family Physician: Marcos Brunson
Chief Complaint
-
weakness
History of Present Illness
84-year-old female past medical history of CAD status post CABG, chronic HFpEF, diabetes, psoriatic arthritis, hypertension, hyponatremia, CKD 3B, nephrolithiasis, interstitial cystitis, presenting with fever, decreased p.o. intake and generalized
weakness starting 1 day ago. She has interstitial cystitis and has intermittent burning which is normal for her occasionally. Denies any urinary symptoms at this time. Vomiting earlier today and 1 episode of diarrhea 4 days ago. She has chronic
cough that is unchanged. Denies chest pain shortness of breath abdominal pain or urinary symptoms.
Denies smoking or alcohol use.
Medical History
Past Medical History
Past Medical History: Reports Other (CAD status post CABG, chronic HFpEF, diabetes, psoriatic arthritis, hypertension, hyponatremia, CKD 3B, nephrolithiasis, interstitial cystitis)
Past Surgical History: Reports None
Social History
Tobacco: Non-smoker
Alcohol: None
Drug: None
Family History
Family History: Not pertinent
Allergies / Home Medications
Allergies reflects when Allergies were last updated in [employer].
Home Medications with original date entered in [employer]
Allergy/Medication List:
Allergies
Allergy/AdvReac Type Severity Reaction Status Date / Time
adhesive Allergy bleeding, Verified 08/22/24 20:23
reddness,
rash
amoxicillin Allergy Unknown, Verified 08/22/24 20:23
Tolerates
cephalosporins
scallops Allergy Unknown Verified 08/22/24 20:23
Home Medications
isosorbide mononitrate 60 mg tablet,extended release 24 hr 60 mg PO DAILY Heart disease/condition 05/05/21
methotrexate sodium 2.5 mg tablet 15 mg PO SA arthritis 05/05/21
pravastatin 10 mg tablet 10 mg PO DAILY High cholesterol 05/05/21
aspirin 81 mg tablet,delayed release 81 mg PO DAILY Blood clot prevention/tx 08/11/21
metoprolol succinate 50 mg tablet,extended release 24 hr 50 mg PO DAILY Blood pressure 08/11/21
calcium carbonate 600 mg PO DAILY Supplement 06/06/22
folic acid 1 mg tablet 1 mg PO DAILY Supplement 06/06/22
cholecalciferol (vitamin D3) 50 mcg (2,000 unit) tablet 50 mcg PO DAILY Supplement 07/13/23
ezetimibe 10 mg tablet 10 mg PO DAILY High Cholesterol 07/13/23
potassium chloride 20 mEq tablet,extended release(part/cryst) 20 meq PO DAILY Electrolyte Repletion 07/13/23
amlodipine 2.5 mg tablet 2.5 mg PO DAILY Blood Pressure 03/21/24
cranberry extract 200 mg capsule (Ellura) 200 mg PO DAILY Supplement 03/21/24
vibegron 75 mg tablet (Gemtesa) 75 mg PO DAILY Urinary Issue 03/21/24
Review of Systems
-
History Source: Patient
A 12 point ROS was completed and negative except as noted: Yes
Constitutional: Reports No Symptoms
EENT: Reports No Symptoms
Respiratory: Reports No Symptoms
Cardiac: Reports No Symptoms
Abdomen/GI: Reports No Symptoms
: Reports No Symptoms
Musculoskeletal: Reports No Symptoms
Skin: Reports No Symptoms
Neurological: Reports No Symptoms
Endocrine: Reports No Symptoms
Hematologic/Lymphatic: Reports No Symptoms
Psych: Reports No Symptoms
Physical Exam
Vital Signs
Vital Signs
Temp Pulse Resp BP Pulse Ox
102.1 F H 73 10 127/79 93
08/22/24 19:54 08/22/24 22:32 08/22/24 22:32 08/22/24 21:47 08/22/24 22:32
Physical Exam
General: Well Developed, Well Nourished and No Apparent Distress
HEENT: NormoCephalic, Moist mucous membranes and Atraumatic
Respiratory: Clear
Cardiac: S1/S2 and Regular Rhythm; No Murmur or Rub
GI: Soft, Non Tender, Non Distended and Normal Bowel Sounds; No Organomegaly
Rectal: Deferred by Provider
Musculoskeletal: No Clubbing, No Cyanosis and No Edema
Skin: No Rash
Neuro: Nonfocal/grossly intact
Laboratory Results
-
08/22/24 20:11
08/22/24 20:11
Laboratory Results
Lactic Acid 1.2 mmol/L (0.7-2.0) 08/22/24 20:11
Total Bilirubin 0.9 mg/dl (0.2-1.3) 08/22/24 20:11
AST 30 U/L (14-36) 08/22/24 20:11
ALT 20 U/L (0-35) 08/22/24 20:11
Alkaline Phosphatase 49 U/L (38-126) 08/22/24 20:11
Data Reviewed
-
Lab Data: Labs Reviewed by me
Old Records: Reviewed
Impression/Plan
-
IMPRESSION:
PLAN:
# Fever secondary to urinary tract infection
- Urinalysis shows greater than 100 WBC, positive nitrates, +3 leukocyte esterase
-Prior urine culture showed pansensitive Klebsiella, ESBL E. coli which was resistant to cephalosporins but sensitive to Zosyn
-Chest x-ray unremarkable
- Urine culture, blood culture
- IV fluids
- Levaquin given history of resistance
History of interstitial cystitis
- Continue Gemtesa
CAD status post CABG
- Continue aspirin, isosorbide, metoprolol
Chronic HFpEF
Type 2 diabetes
- Not on medication
Psoriatic arthritis
- Continue methotrexate
Essential hypertension
- Continue amlodipine
Hypercholesterolemia
-Continue Zetia, statin
History of renal calculus/staghorn calculus
DNR/DNI
DVT prophylaxis�heparin
Regular diet
[2024-08-23 02:02] VITALS: BMI 35.6
[2024-08-23] MEDS: NSS 1000 IV ×2 (02:09→15:07)
[2024-08-23 02:29] VITALS: BP 160/84
[2024-08-23 02:40] VITALS: BMI 35.6
--- NOTE | 2024-08-23 03:02 | PTCARENOTE ---
Received patient from ED via stretcher- heavy assist of 4 to slide over onto bed. Medsurg orders. AAOx3, [place]- patient states that she left bilateral hearing aides at [facility]. PMH and medications reviewed by this RN and patient/ [place]
medical records. Plan of care discussed. Call rizzo within reach.
[2024-08-23 05:47] VITALS: BMI 35.2
[2024-08-23 06:53] LABS: Hematocrit 41.2 % (37.0-47.0); Hemoglobin 13.7 g/dL (12.0-16.0); Mean Corp Hgb Conc. 33.3 g/dL (33.0-37.0); Mean Corpuscular Volume 92.0 fL (81.0-99.0); Nucleated Red Blood Cells % 0 %; Red Cell Dist. Width 16.1 % (11.5-14.5)
[2024-08-23 07:10] LABS: Platelet Count 82 10^3/uL (130-400)
[2024-08-23 07:25] VITALS: BP 168/86
[2024-08-23 08:00] VITALS: BMI 35.2
[2024-08-23 08:37] LABS: ALT (SGPT) 20 U/L (0-35); AST (SGOT) 29 U/L (14-36); Albumin 3.7 g/dl (3.5-5.0); Alkaline Phosphatase 46 U/L (38-126); Blood Urea Nitrogen 16 mg/dl (7-17); Calcium 8.5 mg/dl (8.4-10.2); Carbon Dioxide 22 mmol/L (22-30); Chloride 106 mmol/L (98-107); Estimated Creatinine Clearance 48 ml/min; Glucose 137 mg/dl (70-99); Potassium 3.5 mmol/L (3.5-5.1); Sodium 135 mmol/L (135-145); Total Protein 6.5 g/dl (6.3-8.2); eGFR > 60.00
[2024-08-23] MEDS: NORVASC 2.5 MG PO (09:15)
[2024-08-23] MEDS: KCL 20 MEQ PO (09:15)
[2024-08-23] MEDS: IMDUR (EXTENDED RELEASE) 60 MG PO (09:15)
[2024-08-23] MEDS: FOLVITE 1 MG PO (09:15)
[2024-08-23] MEDS: ZETIA 10 MG PO (09:15)
[2024-08-23] MEDS: ASPIR LOW (ENTERIC COATED) 81 MG PO (09:16)
[2024-08-23] MEDS: TOPROL XL 50 MG PO (09:16)
[2024-08-23] MEDS: HEPARIN 5000 UNITS SC (09:16)
[2024-08-23] MEDS: PRAVACHOL 10 MG PO (09:16)
[2024-08-23] MEDS: VITAMIN D3 (cholecalciferol) 50 MCG PO (09:16)
[2024-08-23] MEDS: OSCAL CAL 500 500 MG PO (09:16)
[2024-08-23] MEDS: LEVAQUIN 150 IV (09:29)
[2024-08-23] MEDS: TYLENOL 650 MG PO (11:14)
--- NOTE | 2024-08-23 14:03 | W.PN.HOSP.TC ---
Today's Communication/Plan
-
Repeat blood cultures
CT of the abdomen and pelvis
Follow urine cultures
Continue Levaquin for now
PT evaluation
Assessment / Plan
Assessment / Plan
84-year-old female with fever and weakness
08/20/2024-ultrasound of the kidney-couple nonobstructing calculi within the lower pole of the right kidney 11 mm. No left-sided intrarenal calculi. No hydronephrosis.
CVS: S1-S2 normal
Chest: CTA B/L
Abdomen: Soft, NT / Bowel sounds present, NO CVA tenderness
Extremities: No edema
# Fever , UTI
Klebsiella bacteremia
Likely secondary to UTI
Urine culture pending
Continue Levaquin
Hold methotrexate
CAT scan of the abdomen and pelvis given kidney stones with history of lithotripsy in the past
# History of interstitial cystitis and overactive bladder on Gemtesa. Hold in the setting of infection.
# Thrombocytopenia-likely secondary to infection. Follow for now.
# Coronary artery disease-history of stents and CABG continue aspirin, metoprolol, Imdur
# Type 2 diabetes-Diet controlled
# Hyperlipidemia-Continue statin, Zetia
# Hypertension-Continue amlodipine, metoprolol
# History of Psoriatic Arthritis-hold Methotrexate in the setting of infection
# DVT prophylaxis-subcutaneous heparin
# DNR
D/W RN
Left message for patient's [id number] who is the primary contact. She is a nurse practitioner per patient
Part of this note was created using voice recognition system. Occasional wrong word or��sound alike� substitutions may have inadvertently occurred due to the inherent limitations of voice recognition software. If noted kindly bring it to my
attention for correction.
Anticipated Discharge: > 48 hours
Subjective/Interval History
-
Date of Service: August 23, 2024
Objective Data
-
Labs:
Laboratory Results
08/23/24 08/23/24
06:12 07:51
WBC 8.6
Hgb 13.7
Hct 41.2
Plt Count 82 L D
Sodium Cancelled 135
Potassium Cancelled 3.5
Chloride Cancelled 106
Carbon Dioxide Cancelled 22
BUN Cancelled 16
Creatinine Cancelled 0.9
Glucose Cancelled 137 H
Calcium Cancelled 8.5 D
Total Bilirubin Cancelled 0.7
AST Cancelled 29
ALT Cancelled 20
Alkaline Phosphatase Cancelled 46
Vital Signs:
Vital Signs
Temp Pulse Resp BP Pulse Ox
99.0 F 77 16 168/86 94
08/23/24 11:35 08/23/24 07:25 08/23/24 07:25 08/23/24 07:25 08/23/24 08:00
I&O
08/22/24 08/23/24 08/24/24
06:59 06:59 06:59
Intake Total 500 / 500
Balance 500 / 500
[2024-08-23 15:42] VITALS: BP 131/73
--- NOTE | 2024-08-23 16:23 | CM ---
Patient seen at bedside
IA completed
Resides at [facility] Personal Care, elevator access
PLOF: independent with walker
DME: Walker, cane, wheelchair, shower chair
PT to eval
Has had VN in past (does not recall agency), Has been at [facility] in the past
Denies insecurities
PCP: Marcos Brunson
Pharmacy: [facility]
PLAN: TBD, await PT rec
[2024-08-23] MEDS: LOVENOX 40 MG SC (17:50)
[2024-08-23] MEDS: DESENEX/MITRAZOL/ZEASORB 1 APPLIC TOPICAL (21:00)
[2024-08-23] MEDS: FLUSH (NSS) 2 FLUSH IV (21:04)
[2024-08-24 00:42] VITALS: BP 157/91
[2024-08-24] MEDS: NSS 1000 IV ×3 (02:22→18:10)
[2024-08-24 06:00] VITALS: BMI 34.8
[2024-08-24 07:29] LABS: Hematocrit 39.7 % (37.0-47.0); Hemoglobin 13.1 g/dL (12.0-16.0); Mean Corp Hgb Conc. 33.0 g/dL (33.0-37.0); Mean Corpuscular Volume 92.8 fL (81.0-99.0); Platelet Count 102 10^3/uL (130-400); Red Cell Dist. Width 15.8 % (11.5-14.5)
[2024-08-24 07:49] LABS: Blood Urea Nitrogen 12 mg/dl (7-17); Calcium 8.6 mg/dl (8.4-10.2); Carbon Dioxide 20 mmol/L (22-30); Chloride 108 mmol/L (98-107); Estimated Creatinine Clearance 53 ml/min; Glucose 102 mg/dl (70-99); Potassium 3.5 mmol/L (3.5-5.1); Sodium 137 mmol/L (135-145); eGFR > 60.00
[2024-08-24 07:59] VITALS: BP 160/88
[2024-08-24] MEDS: VITAMIN D3 (cholecalciferol) 50 MCG PO (08:26)
[2024-08-24] MEDS: IMDUR (EXTENDED RELEASE) 60 MG PO (08:26)
[2024-08-24] MEDS: PRAVACHOL 10 MG PO (08:26)
[2024-08-24] MEDS: FOLVITE 1 MG PO (08:26)
[2024-08-24] MEDS: ASPIR LOW (ENTERIC COATED) 81 MG PO (08:26)
[2024-08-24] MEDS: ZETIA 10 MG PO (08:26)
[2024-08-24] MEDS: NORVASC 2.5 MG PO (08:26)
[2024-08-24] MEDS: OSCAL CAL 500 500 MG PO (08:27)
[2024-08-24] MEDS: KCL 20 MEQ PO (08:27)
[2024-08-24] MEDS: DESENEX/MITRAZOL/ZEASORB 1 APPLIC TOPICAL ×2 (08:27→19:46)
[2024-08-24] MEDS: TOPROL XL 50 MG PO (08:27)
[2024-08-24] MEDS: LEVAQUIN 150 IV (08:30)
[2024-08-24 11:43] VITALS: BP 150/89; BP 150/95; PULSE 74; O2SAT 95
--- NOTE | 2024-08-24 12:43 | W.PN.HOSP.TC ---
Today's Communication/Plan
-
await sensitivities
Continue antibiotics
Assessment / Plan
Assessment / Plan
84-year-old female with fever and weakness
08/20/2024-ultrasound of the kidney-couple nonobstructing calculi within the lower pole of the right kidney 11 mm. No left-sided intrarenal calculi. No hydronephrosis.
CT abdomen and pelvis-small nonobstructing right renal calculi versus dystrophic calcification. No findings to suggest obstructive uropathy bilaterally. Moderate right perinephric stranding cannot exclude pyelonephritis. Cholelithiasis. AAA 3.0
centimeter, descending colon and sigmoid colon diverticulosis. Small fat hernia containing umbilical hernia. Unopacified incompletely distended urinary bladder with thickening bowel of air instrumentation versus cystitis
CVS: S1-S2 normal
Chest: CTA B/L
Abdomen: Soft, NT / Bowel sounds present, NO CVA tenderness
Extremities: No edema
# Fever , UTI
Klebsiella bacteremia
Secondary to pyelonephritis on the right side clinically
Urine culture gram-negative rods
Continue Levaquin
Hold methotrexate
CAT scan of the abdomen and pelvis no obstruction
# History of interstitial cystitis and overactive bladder on Gemtesa. Hold in the setting of infection.
# Thrombocytopenia-likely secondary to infection. Follow for now.
# Coronary artery disease-history of stents and CABG continue aspirin, metoprolol, Imdur
# Type 2 diabetes-Diet controlled
# Hyperlipidemia-Continue statin, Zetia
# Hypertension-Continue amlodipine, metoprolol
# History of Psoriatic Arthritis-hold Methotrexate in the setting of infection
# DVT prophylaxis-subcutaneous heparin
# DNR
D/W RN
D/W TIERA who is a retired [employer] at bed side
Part of this note was created using voice recognition system. Occasional wrong word or��sound alike� substitutions may have inadvertently occurred due to the inherent limitations of voice recognition software. If noted kindly bring it to my
attention for correction.
Anticipated Discharge: Within 24 hours
Subjective/Interval History
-
Date of Service: August 24, 2024
Objective Data
-
Labs:
Laboratory Results
08/24/24
06:49
WBC 7.8
Hgb 13.1
Hct 39.7
Plt Count 102 L D
Sodium 137
Potassium 3.5
Chloride 108 H
Carbon Dioxide 20 L
BUN 12
Creatinine 0.8
Glucose 102 H
Calcium 8.6
Vital Signs:
Vital Signs
Temp Pulse Resp BP Pulse Ox
99.6 F 73 21 160/88 94
08/24/24 07:59 08/24/24 07:59 08/24/24 07:59 08/24/24 07:59 08/24/24 07:59
I&O
08/23/24 08/24/24 08/25/24
06:59 06:59 06:59
Intake Total 500 / 500 1680 / 1680
Balance 500 / 500 1680 / 1680
[2024-08-24 15:55] VITALS: BP 139/82
[2024-08-24] MEDS: LOVENOX 40 MG SC (18:11)
[2024-08-24 23:03] VITALS: BP 126/81
[2024-08-25 06:00] VITALS: BMI 34.3
[2024-08-25 07:30] VITALS: BP 128/72
[2024-08-25] MEDS: IMDUR (EXTENDED RELEASE) 60 MG PO (08:45)
[2024-08-25] MEDS: TYLENOL 650 MG PO (08:45)
[2024-08-25] MEDS: VITAMIN D3 (cholecalciferol) 50 MCG PO (08:45)
[2024-08-25] MEDS: ZETIA 10 MG PO (08:45)
[2024-08-25] MEDS: NORVASC 2.5 MG PO (08:45)
[2024-08-25] MEDS: KCL 20 MEQ PO (08:45)
[2024-08-25] MEDS: TOPROL XL 50 MG PO (08:45)
[2024-08-25] MEDS: FOLVITE 1 MG PO (08:45)
[2024-08-25] MEDS: PRAVACHOL 10 MG PO (08:45)
[2024-08-25] MEDS: OSCAL CAL 500 500 MG PO (08:45)
[2024-08-25] MEDS: DESENEX/MITRAZOL/ZEASORB 1 APPLIC TOPICAL (08:46)
[2024-08-25] MEDS: ASPIR LOW (ENTERIC COATED) 81 MG PO (08:46)
[2024-08-25] MEDS: NSS 1000 IV (08:46)
[2024-08-25] MEDS: LEVAQUIN 150 IV (08:46)
[2024-08-25 10:11] LABS: Hematocrit 40.9 % (37.0-47.0); Hemoglobin 13.4 g/dL (12.0-16.0); Mean Corp Hgb Conc. 32.8 g/dL (33.0-37.0); Mean Corpuscular Volume 92.5 fL (81.0-99.0); Platelet Count 126 10^3/uL (130-400); Red Cell Dist. Width 15.7 % (11.5-14.5)
--- NOTE | 2024-08-25 10:27 | W.PN.HOSP.TC ---
Addendum entered and electronically signed by Aishwarya Smalls MD 08/25/24 14:07:
Discussed with case management
Patient's [id number] will transport and fill medicines
More than 30 minutes spent in discharge including
Final examination of the patient
Summarizing hospital stay
Instructions for continuing care to all relevant caregivers
Preparation of discharge records, prescriptions, and referral forms
Total time spent (in minutes): 37 min
Addendum entered and electronically signed by Aishwarya Smalls MD 08/25/24 13:55:
Dictation- [id number]
Original Note:
Today's Communication/Plan
-
Await labs
EKG to check QTC
Discharge to [facility] after that
Assessment / Plan
Assessment / Plan
84-year-old female with fever and weakness
08/20/2024-ultrasound of the kidney-couple nonobstructing calculi within the lower pole of the right kidney 11 mm. No left-sided intrarenal calculi. No hydronephrosis.
CT abdomen and pelvis-small nonobstructing right renal calculi versus dystrophic calcification. No findings to suggest obstructive uropathy bilaterally. Moderate right perinephric stranding cannot exclude pyelonephritis. Cholelithiasis. AAA 3.0
centimeter, descending colon and sigmoid colon diverticulosis. Small fat hernia containing umbilical hernia. Unopacified incompletely distended urinary bladder with thickening bowel of air instrumentation versus cystitis
CVS: S1-S2 normal
Chest: CTA B/L
Abdomen: Soft, NT / Bowel sounds present, NO CVA tenderness
Extremities: No edema
# Fever , UTI
Klebsiella bacteremia
Secondary to pyelonephritis on the right side clinically
Urine culture gram-negative rods
Continue Levaquin
Hold methotrexate
CAT scan of the abdomen and pelvis no obstruction
# History of interstitial cystitis and overactive bladder on Gemtesa. Hold in the setting of infection.
# Thrombocytopenia-likely secondary to infection. Improved
# Coronary artery disease-history of stents and CABG continue aspirin, metoprolol, Imdur
# Type 2 diabetes-Diet controlled
# Hyperlipidemia-Continue statin, Zetia
# Hypertension-Continue amlodipine, metoprolol
# History of Psoriatic Arthritis-hold Methotrexate in the setting of infection
# DVT prophylaxis-subcutaneous heparin
# DNR
D/W RN
D/W TIERA who is a retired [employer] at bed side
D/W Case management.
Part of this note was created using voice recognition system. Occasional wrong word or��sound alike� substitutions may have inadvertently occurred due to the inherent limitations of voice recognition software. If noted kindly bring it to my
attention for correction.
Anticipated Discharge: Today
Subjective/Interval History
-
Date of Service: August 25, 2024
Objective Data
-
Labs:
Laboratory Results
08/25/24
09:51
WBC 6.6
Hgb 13.4
Hct 40.9
Plt Count 126 L D
Sodium Pending
Potassium Pending
Chloride Pending
Carbon Dioxide Pending
BUN Pending
Creatinine Pending
Glucose Pending
Calcium Pending
Vital Signs:
Vital Signs
Temp Pulse Resp BP Pulse Ox
98.0 F 71 16 128/72 93
08/25/24 07:30 08/25/24 07:30 08/25/24 07:30 08/25/24 07:30 08/25/24 07:30
I&O
08/24/24 08/25/24 08/26/24
06:59 06:59 06:59
Intake Total 1680 / 1680 2940 / 2940
Balance 1680 / 1680 2940 / 2940
[2024-08-25 10:31] LABS: Blood Urea Nitrogen 11 mg/dl (7-17); Calcium 9.0 mg/dl (8.4-10.2); Carbon Dioxide 23 mmol/L (22-30); Chloride 109 mmol/L (98-107); Estimated Creatinine Clearance 53 ml/min; Glucose 119 mg/dl (70-99); Potassium 3.9 mmol/L (3.5-5.1); Sodium 139 mmol/L (135-145); eGFR > 60.00
--- NOTE | 2024-08-25 11:21 | CM ---
Addendum entered by Erika Hidalgo 08/25/24 14:46:
accepted for [facility] please fax information to [phone]/fax
Addendum entered by Erika Hidalgo 08/25/24 13:43:
CM spoke with family and they will pick up attendant patient and medication at [facility]. Referral sent to [facility] and IMM given to patient and reviewed with sister in law.
Addendum entered by Erika Hidalgo 08/25/24 12:29:
Patient requested CM to call her sister in law for transportation and VN referral to [facility]. Patient antibiotic is new and physician is sending script to [facility]. CM left message for sister in law and awaiting call back. Per Leonor please fax
clinical information to [phone]/call report to [phone]. CM provided IMM to patient and will review with patient sister in law.
Original Note:
Patient seen at bedside on . Patient is independent living per nursing and has had home health aides in the past. CM called to [facility] and attempted to speak with the nurse at [facility]. CM will review IMM and request home health from
physician as recommended by therapy. CM will continue to follow for discharge planning needs.
Plan; home to [facility] with VN; pending acceptance.
--- NOTE | 2024-08-25 12:41 | PTCARENOTE ---
Patient oob to bsc x1 assist with walker. PT needed one assist just for prevention of fall with IVF lines. PT makes slow deliberate movements and is steady on feet. PT currently sitting in chair reading. IVF dc as per .
[2024-08-25 15:23] VITALS: BP 155/85
[2024-08-25 16:24] VITALS: BP 170/92
--- NOTE | 2024-08-25 16:57 | W.DS.TRANS ---
DC Summary - Revival Clerk
-
Discharge Instructions:
Sleep Apnea Risk Intermediate
Discharge Diagnosis/Procedures Klebsiella bacteremia
Klebsiella UTI
Coronary artery disease
Diabetes-diet controlled
Hyperlipidemia
Psoriatic arthritis
Gallstones
Diverticulosis
Diet Diabetic, Carb Controlled
Activity With assistance,As tolerated
Blood Work CBC, BMP 1 week
Others Tests Repeat urinalysis 1 week after antibiotics are
completed.
Other Services PT,OT
Instructions:
Stand-Alone Forms:
Changes to Home Medications: Yes
Discharge Medications:
DC Medications w/original date entered in [employer]
isosorbide mononitrate 60 mg tablet,extended release 24 hr 60 mg PO DAILY Heart disease/condition 05/05/21
methotrexate sodium 2.5 mg tablet 15 mg PO SA psoriatic arthritis 05/05/21
Held on 08/25/24. Instructions: Resume on 09/08/24.
pravastatin 10 mg tablet 10 mg PO DAILY High cholesterol 05/05/21
aspirin 81 mg tablet,delayed release 81 mg PO DAILY Blood clot prevention/tx 08/11/21
metoprolol succinate 50 mg tablet,extended release 24 hr 50 mg PO DAILY Blood pressure 08/11/21
calcium carbonate 600 mg PO DAILY Supplement 06/06/22
folic acid 1 mg tablet 1 mg PO DAILY Supplement 06/06/22
cholecalciferol (vitamin D3) 50 mcg (2,000 unit) tablet 50 mcg PO DAILY Supplement 07/13/23
ezetimibe 10 mg tablet 10 mg PO DAILY High Cholesterol 07/13/23
potassium chloride 20 mEq tablet,extended release(part/cryst) 20 meq PO DAILY Electrolyte Repletion 07/13/23
amlodipine 2.5 mg tablet 2.5 mg PO DAILY Blood Pressure 03/21/24
cranberry extract 200 mg capsule (Ellura) 200 mg PO DAILY Supplement 03/21/24
vibegron 75 mg tablet (Gemtesa) 75 mg PO DAILY Urinary Issue 03/21/24
Held on 08/25/24. Instructions: Resume on 09/01/24.
levofloxacin 750 mg tablet 750 mg PO DAILY Urinary issue #9 tabs 08/25/24
Home Medication Changes
new Levaquin
Pending Results: No
== END 2024-08-25 18:11 | disposition home health service (06) | DRG 690 ==
LOC: 3 WEST ACU 00:20
PROVIDERS: Student in an Organized Health Care Education/Training Program; ADMITTING PHYSICIAN Hospitalist; ATTENDING PHYSICIAN Hospitalist; EMERGENCY PHYSICIAN Emergency Medicine; FAMILY PHYSICIAN Internal Medicine Geriatric Medicine
DX: N30.10 Interstitial cystitis (chronic) without hematuria (principal); R78.81 Bacteremia; I50.32 Chronic diastolic (congestive) heart failure; I13.0 Hypertensive heart and chronic kidney disease with heart failure and stage 1 through stage 4 chronic kidney disease, or unspecified chronic kidney disease; B96.1 Klebsiella pneumoniae [K. pneumoniae] as the cause of diseases classified elsewhere; I25.10 Atherosclerotic heart disease of native coronary artery without angina pectoris; N18.32 Chronic kidney disease, stage 3b; E11.22 Type 2 diabetes mellitus with diabetic chronic kidney disease; L40.50 Arthropathic psoriasis, unspecified; E78.00 Pure hypercholesterolemia, unspecified; K80.20 Calculus of gallbladder without cholecystitis without obstruction; K57.30 Diverticulosis of large intestine without perforation or abscess without bleeding; Z66 Do not resuscitate; D69.6 Thrombocytopenia, unspecified; Z11.52 Encounter for screening for COVID-19; Z79.899 Other long term (current) drug therapy; Z87.442 Personal history of urinary calculi; Z95.1 Presence of aortocoronary bypass graft
CPT/HCPCS: 71046; 74176; 76775; 80048; 80053; 81003; 81015; 83605; 85025; 85027; 87040; 87077; 87086; 87154; 87186; 87205; 87502; 87811; 93005; 96361; 96374; 96375; 97116; 97163; 97530; 99285

== ENCOUNTER → 2024-08-30 11:06 | Outpatient (REF) | payer MEDICARE, BC, SELFPAY ==
[2024-08-30 11:23] LABS: Hematocrit 37.7 % (37.0-47.0); Hemoglobin 12.4 g/dL (12.0-16.0); Mean Corp Hgb Conc. 32.9 g/dL (33.0-37.0); Mean Corpuscular Volume 92.9 fL (81.0-99.0); Nucleated Red Blood Cells % 0 %; Platelet Count 170 10^3/uL (130-400); Red Cell Dist. Width 15.8 % (11.5-14.5)
[2024-08-30 11:31] LABS: Blood Urea Nitrogen 23 mg/dl (7-17); Calcium 9.2 mg/dl (8.4-10.2); Carbon Dioxide 24 mmol/L (22-30); Chloride 107 mmol/L (98-107); Glucose 109 mg/dl (70-99); Potassium 3.9 mmol/L (3.5-5.1); Sodium 138 mmol/L (135-145); eGFR 50.17
== END ==
LOC: OLABMERCHI 11:06
PROVIDERS: ATTENDING PHYSICIAN Internal Medicine Geriatric Medicine
DX: N20.0 Calculus of kidney (principal); N39.0 Urinary tract infection, site not specified; I10 Essential (primary) hypertension; N32.81 Overactive bladder; I50.32 Chronic diastolic (congestive) heart failure
CPT/HCPCS: 36415; 80048; 85025

== ENCOUNTER → 2024-09-12 09:55 | Outpatient (REF) | payer MEDICARE, BC, SELFPAY ==
[2024-09-12 11:08] LABS: Urine Character Clear (Clear)
[2024-09-12 12:12] LABS: Urine Squamous Cell 26-30 /LPF (Few)
[2024-09-12 12:13] LABS: Urine White Cell 26-30 /HPF (0-5)
[2024-09-12 12:40] LABS: Microalb - Urine Creatinine 20.000 mg/dl
[2024-09-12 12:45] LABS: Microalbumin, Random Urine 3.8 mg/dl (0.6-1.7)
== END ==
LOC: REG 09:55
PROVIDERS: ATTENDING PHYSICIAN Nurse Practitioner Primary Care
DX: E11.69 Type 2 diabetes mellitus with other specified complication (principal); N39.0 Urinary tract infection, site not specified
CPT/HCPCS: 81003; 81015; 82043; 82570; 87086

== ENCOUNTER → 2024-10-18 13:41 | Outpatient (REF) | payer MEDICARE, BC, SELFPAY ==
[2024-10-18 15:26] LABS: Blood Urea Nitrogen 20 mg/dl (7-17); Calcium 10.0 mg/dl (8.4-10.2); Carbon Dioxide 27 mmol/L (22-30); Glucose 73 mg/dl (70-99); eGFR 45.19
[2024-10-18 15:37] LABS: Chloride 104 mmol/L (98-107); Potassium 4.4 mmol/L (3.5-5.1); Sodium 139 mmol/L (135-145)
== END ==
LOC: REG 13:41
PROVIDERS: ATTENDING PHYSICIAN Internal Medicine Geriatric Medicine
DX: I10 Essential (primary) hypertension (principal); E78.2 Mixed hyperlipidemia; E11.69 Type 2 diabetes mellitus with other specified complication; E11.42 Type 2 diabetes mellitus with diabetic polyneuropathy; R30.0 Dysuria; R06.00 Dyspnea, unspecified; I25.2 Old myocardial infarction; I25.10 Atherosclerotic heart disease of native coronary artery without angina pectoris; R26.89 Other abnormalities of gait and mobility; R00.0 Tachycardia, unspecified; Z13.89 Encounter for screening for other disorder; I95.0 Idiopathic hypotension
CPT/HCPCS: 36415; 80048

== ENCOUNTER → 2024-10-23 09:16 | Outpatient (REF) | payer MEDICARE, BC, SELFPAY | LOC: RAD 09:16 | PROVIDERS: ATTENDING PHYSICIAN Internal Medicine Geriatric Medicine | DX: I71.43 Infrarenal abdominal aortic aneurysm, without rupture (principal) | CPT/HCPCS: 76770 ==

== ENCOUNTER → 2025-01-07 08:45 | Outpatient (REF) | payer MEDICARE, BC, SELFPAY ==
[2025-01-07 10:47] LABS: Hematocrit 43.9 % (37.0-47.0); Hemoglobin 14.2 g/dL (12.0-16.0); Mean Corp Hgb Conc. 32.3 g/dL (33.0-37.0); Mean Corpuscular Volume 94.6 fL (81.0-99.0); Nucleated Red Blood Cells % 0 %; Platelet Count 170 10^3/uL (130-400); Red Cell Dist. Width 15.9 % (11.5-14.5)
[2025-01-07 11:57] LABS: C-Reactive Protein 9.00 mg/L (0.0-10.00)
[2025-01-07 11:58] LABS: ALT (SGPT) 16 U/L (0-35); AST (SGOT) 23 U/L (14-36); Albumin 4.8 g/dl (3.5-5.0); Alkaline Phosphatase 58 U/L (38-126); Blood Urea Nitrogen 21 mg/dl (7-17); Calcium 10.0 mg/dl (8.4-10.2); Carbon Dioxide 27 mmol/L (22-30); Chloride 103 mmol/L (98-107); Glucose 121 mg/dl (70-99); Potassium 4.4 mmol/L (3.5-5.1); Sodium 138 mmol/L (135-145); Total Protein 8.7 g/dl (6.3-8.2); eGFR 41.06
[2025-01-07 12:14] LABS: Vitamin D, 25-OH*** 51.9 ng/mL (30-80)
== END ==
LOC: REG 08:45
PROVIDERS: ATTENDING PHYSICIAN Physician Assistant; FAMILY PHYSICIAN Internal Medicine Geriatric Medicine; OTHER PHYSICIAN Internal Medicine Rheumatology
DX: E55.9 Vitamin D deficiency, unspecified (principal); L40.50 Arthropathic psoriasis, unspecified; Z79.899 Other long term (current) drug therapy
CPT/HCPCS: 36415; 80053; 82306; 85025; 86140

== ENCOUNTER 2025-01-25 02:09 | Inpatient (IN) | payer MEDICARE, BC, SELFPAY ==
[2025-01-24 21:06] VITALS: BP 167/91
[2025-01-24 21:21] VITALS: BP 174/85
[2025-01-24 21:49] LABS: Hematocrit 40.3 % (37.0-47.0); Hemoglobin 13.2 g/dL (12.0-16.0); Mean Corp Hgb Conc. 32.8 g/dL (33.0-37.0); Mean Corpuscular Volume 92.9 fL (81.0-99.0); Nucleated Red Blood Cells % 0 %; Platelet Count 126 10^3/uL (130-400); Red Cell Dist. Width 15.8 % (11.5-14.5)
[2025-01-24 21:50] VITALS: BMI 34.0
[2025-01-24 21:54] LABS: COVID-19 Antigen Negative (Negative)
[2025-01-24 21:55] LABS: Urine Character Cloudy (Clear)
[2025-01-24 21:58] LABS: ALT (SGPT) 17 U/L (0-35); AST (SGOT) 21 U/L (14-36); Albumin 4.5 g/dl (3.5-5.0); Alkaline Phosphatase 54 U/L (38-126); Blood Urea Nitrogen 20 mg/dl (7-17); Calcium 9.4 mg/dl (8.4-10.2); Carbon Dioxide 26 mmol/L (22-30); Chloride 100 mmol/L (98-107); Estimated Creatinine Clearance 45 ml/min; Glucose 175 mg/dl (70-99); Potassium 4.4 mmol/L (3.5-5.1); Sodium 133 mmol/L (135-145); Total Protein 7.8 g/dl (6.3-8.2); eGFR 56.25
[2025-01-24 22:00] VITALS: BP 153/82
[2025-01-24 22:04] LABS: Urine Red Blood Cell 30-40 /HPF (0-2); Urine Urothelial Cell 0-2 /LPF (FEW)
[2025-01-24 22:05] LABS: Urine White Cell >100 /HPF (0-5)
[2025-01-25] MEDS: TYLENOL 1000 MG PO (00:10)
--- NOTE | 2025-01-25 01:14 | ED.GENMED ---
History of Present Illness
General
Chief Complaint: Weakness
Source: patient and family
Exam Limitations: none
Time Seen by Provider: 01/24/25 22:03
Nursing documentation reviewed up to this point in time: agreed with
History of Present Illness
History of Present Illness:
Note:
CHIEF COMPLAINT(S)
Cough and weakness.
HISTORY OF PRESENT ILLNESS
The patient is an 84-year-old female with a history of living in a household with multiple smokers for 50 years, presenting with a cough lasting approximately two days this week. She had a prior episode of cough accompanied by a running nose.
Currently, she reports the cough is deeper than typical, with others describing it as significant. The patient also experienced chills yesterday. Additionally, she reports weakness since Tuesday, which has remained constant.
The patient is prone to urinary tract infections (UTIs) and believes she might have one due to weakness. She attempted to provide a urine sample for testing. There is no associated shortness of breath; the cough stands alone. She denies any chest
pain.
Post-Thanksgiving, she engaged in more physical activity than usual, possibly contributing to her current fatigue. She mentions a rash persisting since March and has a medical alert system at her fci.
PAST MEDICAL AND SURGICAL HISTORY
The patient has undergone cardiac surgery, with the last one occurring in the late 1990s to early 1999s.
SOCIAL DETERMINANTS AFFECTING HEALTH
The patient has a history of residing in a household with multiple smokers for 50 years, potentially affecting her respiratory health.
PHYSICAL EXAM
General: Alert, no acute distress.
Skin: Warm, dry.
Head: Normocephalic, atraumatic.
Neck: Supple, trachea midline.
Eye, Ears, Nose, Mouth and Throat: Oral mucosa moist.
Cardiovascular: Normal peripheral perfusion, no edema.
Respiratory: Respirations are non-labored with slight wheezing upon auscultation.
Gastrointestinal: Abdomen nondistended.
Back: Normal range of motion, normal alignment.
Musculoskeletal: Normal range of motion, normal strength.
Neurological: Alert and oriented to person, place, time, and situation, no focal neurological deficit observed.
Psychiatric: Cooperative, appropriate mood & affect.
PLAN
- Review the patients labs and urine culture for possible UTI.
- Monitor respiratory status due to cough and wheezing.
- Consider further evaluation and treatment of chronic rash.
- Assess for complications related to past cardiac surgery if symptoms persist or worsen.
- Recommend rest and monitor fatigue following increased physical activity.
DIFFERENTIAL DIAGNOSIS
The Differential Diagnosis includes, in no particular order and is not limited to:
1. Upper respiratory tract infection
2. Urinary tract infection
3. Chronic obstructive pulmonary disease exacerbation
4. Heart failure exacerbation
5. Viral bronchitis
6. Pneumonia
7. Asthma
8. Post-nasal drip
9. Congestive heart failure
10. Allergic reaction
Disposition:
SUMMARY OF ENCOUNTER
The patient is an 84-year-old female, presented with weakness and fever of unknown source. She lives in a personal care facility and has a history of frequent falls. Daughter reports she is unsteady on her feet. No abdominal pain noted, and bowel
function is good. The urinalysis shows leucocyte esterase present without nitrates, indicating a possible urinary tract infection (UTI). Therefore, she will be treated empirically for a possible UTI, as indicated by the daughter�s observation of
these symptoms in previous UTIs. Given her clinical presentation and recent history of symptoms, admission to the hospital is deemed necessary.
DISPOSITION
Admit
ASSESSMENT
Possible urinary tract infection with weakness and fever in the context of frequent falls and apparent unsteadiness, likely exacerbated by underlying infection.
PLAN
- Start empirical antibiotic treatment for a suspected urinary tract infection.
- Admit patient to hospital for further monitoring and management.
- Continue to monitor vital signs and symptoms, particularly fever and weakness.
- Evaluate and address fall risk and any potential contributing factors to frequent falls.
INDEPENDENT REVIEW OF LABS AND INTERPRETATION OF TESTS
My independent review of the urinalysis is: presence of leucocyte esterase without nitrates.
MEDICAL DECISION MAKING
-Complexity of Data Reviewed: Chronic conditions affecting care [history of frequent falls, possible UTI suspected from lab results]
-Data:
Category 1
Non-emergency department records reviewed, if applicable.
Category 2
Daughter provided additional patient history indicating common UTI symptomatic response.
-Risk:
Decisions include admission for further management due to potential complications of untreated UTI and the risk of falls. Care significantly affected by Social Determinants of Health, significant for living in a personal care facility.
DIAGNOSIS
- Possible Urinary Tract Infection (UTI) (ICD-10: N39.0)
- Weakness, unspecified (ICD-10: R53.1)
- History of falls (ICD-10: Z91.81)
Past History
Past History
ED Past Medical History: CAD, CHF, HTN and Other (Renal calculi)
ED Past Surgical History: Cardiac
Social History
Tobacco: Non-smoker
Alcohol: None
Drug: None
Personal:
Living: assisted living
Employment: Retired
Review of Systems
Review of Systems
Allergies reviewed?: Yes
Phy Exam
Physical Exam
Physical Exam:
..
Sepsis
Sepsis Screening
Sepsis Assessment: Sepsis Ruled Out
Sepsis Screen
Sepsis Screen: Sepsis Ruled Out
Date: 01/25/25
Time: 03:16
Course
Orders/Labs/Results
Orders:
Orders
01/24/25 21:26
Electrocardiogram (*1) Urgent
Reason for Study: Other
Other Reason for Exam: Possible Sepsis
Cardiac Monitoring- Treatment ONCE
EKG- Treatment ONCE
IV Insert/Care/Rem.- Treatment PRN
Straight cath- Treatment ONCE
O2 Therapy [RESP] Urgent
Titrate/Wean O2 to maintain O2 sat greater than (%): 93
Special Instructions: TO MAINTAIN CONTINUOUS O2 SATS > OR = 93%
Pulse Ox/cont/shift [RESP] Urgent
Quantity: 1
Special Instructions: CONTINUOUS
01/24/25 21:29
Complete Blood Count/With Diff Urgent
Comprehensive Metabolic Panel Urgent
Lactic Acid Q4H
Comment: ON ICE, CANCEL 2ND ORDER IF FIRST LACTIC ACID LEVEL <2
Blood Culture Q20M
JOSE Source: Blood/Venous
Specimen Description:
Comment: Urgent from separate sites. If patient screens positive for possible sepsis
01/24/25 21:32
COVID-19 Antigen Urgent
Source: Nasal Swab
Influenza A+B Rapid Molecular Urgent
JOSE Source: Nasal Swab
Specimen Description:
01/24/25 21:47
Urinalysis Reflex To Culture Urgent
Date Specimen was Collected: 01/24/25
Time Specimen was Collected: 21:26
Urine Microscopic Reflex Cult Urgent
Urine Culture Urgent
JOSE Source: U
Specimen Description:
Date Specimen was Collected: 01/24/25
Time Specimen was Collected: 21:26
01/24/25 21:50
Blood Culture Q20M
JOSE Source: Blood/Venous
Specimen Description:
Comment: Urgent from separate sites. If patient screens positive for possible sepsis
01/24/25 22:23
CR Chest - 2 Views Urgent
Comment:
Reason For Exam: cough, fever
01/24/25 23:59
NT-proBNP Urgent
01/25/25 00:07
Acetaminophen [Tylenol] 1,000 mg PO NOW STA
01/25/25 01:37
Doxycycline Hyclate [Vibramycin] 100 mg 0.9% Sodium Chloride 250 ml [Nss] 250 ml IV NOW
01/25/25 01:53
CefTRIAXone [Rocephin] 1,000 mg IV NOW STA
01/25/25 02:00
Sterile Water [Sterile Water For Injection] 10 ml IV STAT STA
01/25/25 02:01
Admit/Transfer Patient As Directed
Co-Sign Provider:
Level of Care: Inpatient admission
Assign to:: Medical/Surgical
Physician / Group: Mikhail
Diagnosis: cystitis with fever
Reason for Hospitalization: cystitis, possible pyelonephritis
Expected length of stay greater than two midnights?: Yes
ELOS- Estimated Length of Stay in days: 2
I certify the patient meets the requirements for IP care: Yes
PRN Pain Medication Management As Directed
May give lesser potent ordered pain med per pt: Yes
preference::
Protocol:: Medication orders for pain may be administered in a
manner that supports deferring to patient preference
when the pt is:
- Requesting an ordered lesser potent pain medication.
Least to most potent pain medications are defined
as: acetaminophen < NSAID < tramadol < opioids
(morphine, oxycodone, hydromorphone).
- Requesting a lesser dose of the same medication IF
ORDERED.
- Requesting a less intrusive route of administration
if both routes are prescribed by the provider (PO <
IV).
01/25/25 02:04
Code Status As Directed
Resuscitation Status: Full Code
01/25/25 03:05
Bisacodyl [Dulcolax] 10 mg RECTAL [id number] PRN
Docusate W/Senna [Senokot-S] 1 tablet PO BIDPRN PRN
Ondansetron Injectable [Zofran] 4 mg IV Q6HPRN PRN
Polyethylene Glycol Powder [Miralax] 17 grams PO DAILYPRN PRN
01/25/25 03:05
Activity As Directed
Activity Level: With Assistance
Vital Signs As Directed
Frequency: Per unit guidelines
Pt Eval And Treat Routine
Activity Level: With Assistance
DX Deep Vein Thrombosis Video Routine
01/25/25 Breakfast
Regular
At Your Request: Full Participation
Basic Metabolic Panel IN AM
Complete Blood Count/No Diff IN AM
Acetaminophen [Tylenol] 650 mg PO Q4HPRN PRN
01/25/25 08:00
Amlodipine [Norvasc] 2.5 mg PO DAILY
Aspirin Low Dose EC [Aspir Low (Enteric Coated)] 81 mg PO DAILY
Ezetimibe [Zetia] 10 mg PO DAILY
FOLic ACID [Folvite] 1 mg PO DAILY
ISOSORBIDE MONOnitrate ER [Imdur (Extended Release)] 60 mg PO DAILY
Metoprolol Xl [Toprol Xl] 50 mg PO DAILY
Potassium Chloride [KCl] 20 meq PO DAILY
Pravastatin Sodium [Pravachol] 10 mg PO DAILY
vibegron [Gemtesa] 75 mg PO DAILY
01/25/25 18:00
Enoxaparin Sodium [Lovenox] 40 mg SC QPM
01/26/25 02:00
CefTRIAXone [Rocephin] 1,000 mg IV Q24H
01/26/25 08:00
Methotrexate Sodium [Methotrexate] 5 mg PO WEEKLY
Abnormal Lab Results
01/24/25 01/24/25
21:29 21:47
MCHC 32.8 L g/dL
(33.0-37.0)
RDW 15.8 H %
(11.5-14.5)
Plt Count 126 L 10^3/uL
(130-400)
MPV 10.8 H fL
(7.4-10.4)
Abs Immat Gran (auto) 0.1 H 10^3/uL
(0-0.05)
Absolute Neuts (auto) 7.1 H 10^3/uL
(1.4-6.5)
Absolute Lymphs (auto) 0.9 L 10^3/uL
(1.2-3.4)
Absolute Monos (auto) 1.0 H 10^3/uL
(0.1-0.6)
Neutrophils % 76.1 H %
(42.2-75.2)
Lymphocytes % 9.1 L %
(20.5-51.1)
Monocytes % 10.3 H %
(1.7-9.3)
Sodium 133 L mmol/L
(135-145)
BUN 20 H mg/dl
(7-17)
Glucose 175 H mg/dl
(70-99)
Ur Occult Blood Reflex 4+ A
(Negative)
Leukocyte Esterase Rfl 3+ A
(Negative)
Urine RBC 30-40 A /HPF
(0-2)
Urine WBC (Reflex) >100 A /HPF
(0-5)
Urine Bacteria (Reflex) Moderate A
(Negative)
Urine Albumin (Reflex) 3+ A
(Neg - Trace)
01/24/25 21:29
01/24/25 21:29
Vital Signs
Initial and Last Documented VS:
Initial Vital Signs
Temp Pulse Resp BP Pulse Ox
100.9 F H 85 16 167/91 94
01/24/25 21:06 01/24/25 21:06 01/24/25 21:06 01/24/25 21:06 01/24/25 21:06
Last Documented Vital Signs
Temp Pulse Resp BP Pulse Ox
102.3 F H 76 15 153/82 93
01/24/25 21:52 01/25/25 03:00 01/25/25 03:00 01/24/25 22:00 01/25/25 03:00
*Pulse Oximetry
SaO2: 94
Oxygen Mode of Delivery: Room air
Patient hypoxic: no
*Critical Care Note
Total Time (30-74mins, 75-104mins- exclusive of procedures): Not Applicable
Update Note
Update Note:
Note:
CHIEF COMPLAINT(S)
Cough and weakness.
HISTORY OF PRESENT ILLNESS
The patient is an 84-year-old female with a history of living in a household with multiple smokers for 50 years, presenting with a cough lasting approximately two days this week. She had a prior episode of cough accompanied by a running nose.
Currently, she reports the cough is deeper than typical, with others describing it as significant. The patient also experienced chills yesterday. Additionally, she reports weakness since Tuesday, which has remained constant.
The patient is prone to urinary tract infections (UTIs) and believes she might have one due to weakness. She attempted to provide a urine sample for testing. There is no associated shortness of breath; the cough stands alone. She denies any chest
pain.
Post-Thanksgiving, she engaged in more physical activity than usual, possibly contributing to her current fatigue. She mentions a rash persisting since March and has a medical alert system at her fci.
PAST MEDICAL AND SURGICAL HISTORY
The patient has undergone cardiac surgery, with the last one occurring in the late 1990s to early 1999s.
SOCIAL DETERMINANTS AFFECTING HEALTH
The patient has a history of residing in a household with multiple smokers for 50 years, potentially affecting her respiratory health.
PHYSICAL EXAM
General: Alert, no acute distress.
Skin: Warm, dry.
Head: Normocephalic, atraumatic.
Neck: Supple, trachea midline.
Eye, Ears, Nose, Mouth and Throat: Oral mucosa moist.
Cardiovascular: Normal peripheral perfusion, no edema.
Respiratory: Respirations are non-labored with slight wheezing upon auscultation.
Gastrointestinal: Abdomen nondistended.
Back: Normal range of motion, normal alignment.
Musculoskeletal: Normal range of motion, normal strength.
Neurological: Alert and oriented to person, place, time, and situation, no focal neurological deficit observed.
Psychiatric: Cooperative, appropriate mood & affect.
PLAN
- Review the patients labs and urine culture for possible UTI.
- Monitor respiratory status due to cough and wheezing.
- Consider further evaluation and treatment of chronic rash.
- Assess for complications related to past cardiac surgery if symptoms persist or worsen.
- Recommend rest and monitor fatigue following increased physical activity.
DIFFERENTIAL DIAGNOSIS
The Differential Diagnosis includes, in no particular order and is not limited to:
1. Upper respiratory tract infection
2. Urinary tract infection
3. Chronic obstructive pulmonary disease exacerbation
4. Heart failure exacerbation
5. Viral bronchitis
6. Pneumonia
7. Asthma
8. Post-nasal drip
9. Congestive heart failure
10. Allergic reaction
Disposition:
SUMMARY OF ENCOUNTER
The patient is an 84-year-old female, presented with weakness and fever of unknown source. She lives in a personal care facility and has a history of frequent falls. Daughter reports she is unsteady on her feet. No abdominal pain noted, and bowel
function is good. The urinalysis shows leucocyte esterase present without nitrates, indicating a possible urinary tract infection (UTI). Therefore, she will be treated empirically for a possible UTI, as indicated by the daughter�s observation of
these symptoms in previous UTIs. Given her clinical presentation and recent history of symptoms, admission to the hospital is deemed necessary.
DISPOSITION
Admit
ASSESSMENT
Possible urinary tract infection with weakness and fever in the context of frequent falls and apparent unsteadiness, likely exacerbated by underlying infection.
PLAN
- Start empirical antibiotic treatment for a suspected urinary tract infection.
- Admit patient to hospital for further monitoring and management.
- Continue to monitor vital signs and symptoms, particularly fever and weakness.
- Evaluate and address fall risk and any potential contributing factors to frequent falls.
INDEPENDENT REVIEW OF LABS AND INTERPRETATION OF TESTS
My independent review of the urinalysis is: presence of leucocyte esterase without nitrates.
MEDICAL DECISION MAKING
-Complexity of Data Reviewed: Chronic conditions affecting care [history of frequent falls, possible UTI suspected from lab results]
-Data:
Category 1
Non-emergency department records reviewed, if applicable.
Category 2
Daughter provided additional patient history indicating common UTI symptomatic response.
-Risk:
Decisions include admission for further management due to potential complications of untreated UTI and the risk of falls. Care significantly affected by Social Determinants of Health, significant for living in a personal care facility.
DIAGNOSIS
- Possible Urinary Tract Infection (UTI) (ICD-10: N39.0)
- Weakness, unspecified (ICD-10: R53.1)
- History of falls (ICD-10: Z91.81)
ED Attending Note
-
Portions of this chart may have been created with voice recognition software.� Occasional wrong word or��sound alike� substitutions may have occurred due to the inherent limitations of voice recognition software.
Discharge Plan
Departure
Patient Disposition: Admit
Date of Disposition: 01/25/25
Time of Disposition: 01:31
Admit to: Med/Surg
Presentation/result/management discussed w/ accepting MD/DO: Hospitalist
Condition: Fair
Discharge Problem:
Fever, Acute UTI, Weakness, Falls frequently
Interventions
Interventions:
*Risk Screen - Suicide Last Done: 01/24/25 21:06
*General Assessment Last Done: 01/24/25 21:52
*Neglect/Abuse Screening Last Done: 01/24/25 21:06
*ED COVID-19 Vaccine History Last Done: 01/24/25 21:52
*ED Influenza Vaccine History Last Done: 01/24/25 21:52
[facility] Risk Assessment Tool Last Done: 01/24/25 21:04
ED- Neurological Assessment Last Done: 01/24/25 21:52
ED- Pulmonary Assessment Last Done: 01/24/25 21:52
--- NOTE | 2025-01-25 01:52 | HPS.HSE ---
Family Physician
-
Family Physician: Marcos Brunson
Chief Complaint
-
Weakness
History of Present Illness
Patient is a 84-year-old with past medical history significant for CAD status post CABG, status post stenting, hypertension, hyperlipidemia, psoriasis, psoriatic arthritis, interstitial cystitis with recurrent urinary tract infections presents to
the emergency department with 1 day of increasing weakness and found to be febrile.
According to primary next of kin with the niece patient was doing well up until about a day ago when she became increasingly fatigued. She is known to have urinary frequency and that has not changed. She has self was unable to provide details of
any kind of urinary dysuria, flank pain or urgency or worsening frequency. She has decreased appetite also found to be febrile at home so she was brought to the emergency department. She has not been on any antibiotics recently. She denies any
known sick contacts. Daughter reported that she has a chronic cough secondary to secondhand smoking but it is more deep now without being productive. Patient denies any shortness of breath. There is question of sleep apnea but she does not want
to be tested or diagnosed or take any additional treatments. She denies any new rash, ulcers, joint swelling redness or pain.
In the emergency department she was febrile to 102.3,, blood pressure was at 150/80 with a pulse of 78 and she was satting 92 to 95% on room air. CBC was mostly unremarkable with a white count 9.1 with 13.2 and platelet of 126. Sodium was 133 the
rest of the electrolyte BUN/creatinine were normal. UA was positive for leukocyte esterase moderate bacteria and WBCs
Chest x-ray no limited by body habitus on my review, shows no acute infiltrates.
Medical History
Past Medical History
Past Medical History: Reports Other (CAD status post CABG, chronic HFpEF, diabetes, psoriatic arthritis, hypertension, hyponatremia, CKD 3B, nephrolithiasis, interstitial cystitis)
Past Surgical History: Reports None
Social History
Tobacco: Non-smoker
Alcohol: None
Drug: None
Family History
Family History: Not pertinent
Allergies / Home Medications
Allergies reflects when Allergies were last updated in [facility].
Home Medications with original date entered in [facility]
Allergy/Medication List:
Allergies
Allergy/AdvReac Type Severity Reaction Status Date / Time
adhesive Allergy bleeding, Verified 08/22/24 20:23
reddness,
rash
amoxicillin Allergy Unknown, Verified 08/22/24 20:23
Tolerates
cephalosporins
scallops Allergy Unknown Verified 08/22/24 20:23
Home Medications
isosorbide mononitrate 60 mg tablet,extended release 24 hr 60 mg PO DAILY Heart disease/condition 05/05/21
methotrexate sodium 2.5 mg tablet 15 mg PO SA arthritis 05/05/21
pravastatin 10 mg tablet 10 mg PO DAILY High cholesterol 05/05/21
aspirin 81 mg tablet,delayed release 81 mg PO DAILY Blood clot prevention/tx 08/11/21
metoprolol succinate 50 mg tablet,extended release 24 hr 50 mg PO DAILY Blood pressure 08/11/21
calcium carbonate 600 mg PO DAILY Supplement 06/06/22
folic acid 1 mg tablet 1 mg PO DAILY Supplement 06/06/22
cholecalciferol (vitamin D3) 50 mcg (2,000 unit) tablet 50 mcg PO DAILY Supplement 07/13/23
ezetimibe 10 mg tablet 10 mg PO DAILY High Cholesterol 07/13/23
potassium chloride 20 mEq tablet,extended release(part/cryst) 20 meq PO DAILY Electrolyte Repletion 07/13/23
amlodipine 2.5 mg tablet 2.5 mg PO DAILY Blood Pressure 03/21/24
cranberry extract 200 mg capsule (Ellura) 200 mg PO DAILY Supplement 03/21/24
vibegron 75 mg tablet (Gemtesa) 75 mg PO DAILY Urinary Issue 03/21/24
Review of Systems
-
History Source: Patient
A 12 point ROS was completed and negative except as noted: Yes
Constitutional: Reports Fever
EENT: Reports No Symptoms
Respiratory: Reports Cough
Cardiac: Reports No Symptoms
Abdomen/GI: Reports No Symptoms
: Reports Frequency and Urgency
Musculoskeletal: Reports No Symptoms
Skin: Reports No Symptoms
Neurological: Reports No Symptoms
Endocrine: Reports No Symptoms
Hematologic/Lymphatic: Reports No Symptoms
Psych: Reports No Symptoms
Physical Exam
Vital Signs
Vital Signs
Temp Pulse Resp BP Pulse Ox
102.3 F H 78 26 153/82 94
01/24/25 21:52 01/25/25 00:00 01/25/25 00:00 01/24/25 22:00 01/25/25 01:16
Physical Exam
General: Well Developed, Well Nourished and No Apparent Distress
HEENT: NormoCephalic, Moist mucous membranes, Atraumatic and Hearing Impaired; No Oxygen
Respiratory: Clear
Cardiac: S1/S2 and Regular Rhythm; No Murmur or Rub
GI: Soft, Non Tender, Non Distended and Normal Bowel Sounds; No Organomegaly
Rectal: Deferred by Provider
Musculoskeletal: No Clubbing, No Cyanosis and No Edema
Skin: No Rash
Neuro: AO x 3 and Nonfocal/grossly intact
Psych: Calm
Laboratory Results
-
01/24/25 21:29
01/24/25 21:29
Laboratory Results
Lactic Acid 1.5 mmol/L (0.7-2.0) 01/24/25 21:29
Total Bilirubin 0.5 mg/dl (0.2-1.3) 01/24/25 21:29
AST 21 U/L (14-36) 01/24/25 21:
ALT 17 U/L (0-35) 01/24/25 21:29
Alkaline Phosphatase 54 U/L (38-126) 01/24/25 21:29
Data Reviewed
-
Diagnostic Radiology: Image Personally Visualized and interpreted
Lab Data: Labs Reviewed by me
Old Records: Reviewed
Impression/Plan
-
IMPRESSION:
84-year-old with past medical history of CAD status post CABG, hypertension, psoriatic arthritis, psoriasis, recurrent UTI, interstitial cystitis, diastolic CHF, hypertension who presents to the emergency department with weakness and found to be
febrile to 102.3. Workup in the ED is negative for COVID or flu but shows a markedly positive UA. CBC, electrolyte BUN/creatinine were all in the normal range.
PLAN:
Fever -high fever suspect secondary to cystitis with possible pyelonephritis
� Admit to [facility]
� Blood cultures sent, urine cultures pending
� Will start on ceftriaxone, tolerated cephalosporins in the past
� Procalcitonin in a.m.
� If procalcitonin positive, add doxycycline
CAD
-Continue aspirin 81, pravastatin 10 and ezetimibe 10
� Continue isosorbide 60
� Treat hypertension with amlodipine 2.5 as per home regimen
�Continue metoprolol succinate 50 mg daily
Psoriatic arthritis
� Continue methotrexate 5 mg on Saturdays
� Continue folic acid 1 mg daily
DVT prophylaxis�Lovenox subcu
CODE STATUS�DNR
[2025-01-25] MEDS: ROCEPHIN 1000 MG IV (02:30)
[2025-01-25] MEDS: STERILE WATER FOR INJECTION 10 ML IV (02:30)
[2025-01-25 04:50] VITALS: BP 144/87
[2025-01-25 04:54] VITALS: BMI 33.6
[2025-01-25 05:33] VITALS: BMI 33.6
--- NOTE | 2025-01-25 05:44 | PTCARENOTE ---
Pt. received from ED and admitted to floor per protocol. Pt.'s daughter to bring in her med list this afternoon in order to complete her med rec as pt. is unsure of her doses and current medications. Pt. oriented to room, bed alarm in place. Call
rizzo within reach, bed in lowest position. VSS. Plan of care ongoing.
[2025-01-25 05:51] LABS: Hematocrit 38.6 % (37.0-47.0); Hemoglobin 12.4 g/dL (12.0-16.0); Mean Corp Hgb Conc. 32.1 g/dL (33.0-37.0); Mean Corpuscular Volume 92.3 fL (81.0-99.0); Platelet Count 113 10^3/uL (130-400); Red Cell Dist. Width 15.9 % (11.5-14.5)
[2025-01-25 06:16] LABS: Blood Urea Nitrogen 19 mg/dl (7-17); Calcium 9.0 mg/dl (8.4-10.2); Carbon Dioxide 27 mmol/L (22-30); Chloride 104 mmol/L (98-107); Estimated Creatinine Clearance 43 ml/min; Glucose 114 mg/dl (70-99); Potassium 3.8 mmol/L (3.5-5.1); Sodium 137 mmol/L (135-145); eGFR 56.25
[2025-01-25 07:00] VITALS: BP 148/80
--- NOTE | 2025-01-25 07:55 | W.PN.HOSP.TC ---
Today's Communication/Plan
-
Continue antibiotics
Follow cultures
See plan
Assessment / Plan
Assessment / Plan
Physical Exam
General: Well Developed, Well Nourished and No Apparent Distress
HEENT: NormoCephalic, Moist mucous membranes, Atraumatic and Hearing Impaired; No Oxygen
Respiratory: Clear
Cardiac: S1/S2 and Regular Rhythm; No Murmur or Rub
GI: Soft, Non Tender, Non Distended and Normal Bowel Sounds; No Organomegaly
Rectal: Deferred by Provider
Musculoskeletal: No Clubbing, No Cyanosis and No Edema
Skin: No Rash
Neuro: AO x 3 and Nonfocal/grossly intact
Psych: Calm
Assessment/Plan
84-year-old with past medical history significant for CAD status post CABG, status post stenting, hypertension, hyperlipidemia, psoriasis, psoriatic arthritis, interstitial cystitis with recurrent urinary tract infections presented to the emergency
department with 1 day of increasing weakness and found to be febrile. According to primary next of kin with the niece patient was doing well up until about a day prior to presentation, when she became increasingly fatigued. She is known to have
urinary frequency and that has not changed. She herself was unable to provide details of any kind of urinary dysuria, flank pain or urgency or worsening frequency. She has decreased appetite also found to be febrile at home so she was brought to
the emergency department. She had not been on any antibiotics recently. She denied any known sick contacts. Daughter reported that she has a chronic cough secondary to secondhand smoking but it is more deep now without being productive. Patient
denied any shortness of breath. There is question of sleep apnea but she does not want to be tested or diagnosed or take any additional treatments. She denied any new rash, ulcers, joint swelling redness or pain.
In the emergency department she was febrile to 102.3,, blood pressure was at 150/80 with a pulse of 78 and she was satting 92 to 95% on room air. CBC was mostly unremarkable with a white count 9.1 with 13.2 and platelet of 126. Sodium was 133 the
rest of the electrolyte BUN/creatinine were normal. UA was positive for leukocyte esterase moderate bacteria and WBCs
Fever -high fever suspect secondary to cystitis with possible pyelonephritis/complicated UTI
Presentation with worsening fatigue, fever, and decreased appetite
Chronic Urinary Frequency
History of recurrent UTI and interstitial cystitis
� Blood cultures sent, urine cultures pending
� Continue ceftriaxone, tolerated cephalosporins in the past, patient improving/stable while on Ceftriaxone regimen
- Does have history of ESBL E.coli in 2022 consider broaden abx if persistently febrile pending cultures.
- Bladder scans protocol
Diabetes Mellitus
-Insulin Sliding Scale and accuchecks
CAD
-Continue aspirin 81, pravastatin 10 and ezetimibe 10
� Continue isosorbide 60
� Treat hypertension with amlodipine 2.5 as per home regimen
�Continue metoprolol succinate 50 mg daily
Psoriatic arthritis
� Hold methotrexate 5 mg on Saturdays given infection
� Continue folic acid 1 mg daily
DVT prophylaxis�Lovenox subcu
CODE STATUS�DNR
This is a non-billable note.
Anticipated Discharge: 24 - 48 hours
Subjective/Interval History
-
Date of Service: January 25, 2025
Patient was seen and examined. She reported she was feeling better today, no new symptoms or complaints.
Objective Data
-
Labs:
Laboratory Results
01/24/25 01/25/25
21:29 05:16
WBC 9.4 7.2
Hgb 13.2 12.4
Hct 40.3 38.6
Plt Count 126 L 113 L
Sodium 133 L 137
Potassium 4.4 3.8
Chloride 100 104
Carbon Dioxide 26 27
BUN 20 H 19 H
Creatinine 1.0 1.0
Glucose 175 H 114 H
Calcium 9.4 9.0
Total Bilirubin 0.5
AST 21
ALT 17
Alkaline Phosphatase 54
Vital Signs:
Vital Signs
Temp Pulse Resp BP Pulse Ox
98.8 F 67 16 144/87 95
01/25/25 04:50 01/25/25 04:50 01/25/25 04:50 01/25/25 04:50 01/25/25 04:50
[2025-01-25 08:47] LABS: Glucose - Point of Care 115 mg/dl (70-99)
[2025-01-25] MEDS: PRAVACHOL 10 MG PO (09:10)
[2025-01-25] MEDS: ASPIR LOW (ENTERIC COATED) 81 MG PO (09:10)
[2025-01-25] MEDS: FOLVITE 1 MG PO (09:11)
[2025-01-25] MEDS: KCL 20 MEQ PO (09:11)
[2025-01-25] MEDS: TOPROL XL 50 MG PO (09:11)
[2025-01-25] MEDS: IMDUR (EXTENDED RELEASE) 60 MG PO (09:11)
[2025-01-25] MEDS: NORVASC 2.5 MG PO (09:11)
[2025-01-25] MEDS: ZETIA 10 MG PO (09:11)
--- NOTE | 2025-01-25 09:35 | PTCARENOTE ---
Call placed to patient's facility requesting paperwork and med list.
[2025-01-25 11:08] VITALS: BP 148/81; PULSE 71
[2025-01-25 12:22] LABS: Glucose - Point of Care 252 mg/dl (70-99)
--- NOTE | 2025-01-25 12:32 | CM ---
CM placed call to [facility], transferred to [facility], left message
Per previous admission, patient is personal care level at [facility]. Independent w/ RW. Has additional cane, w/c and shower chair.
[facility]. [facility] hx.
PCP: Marcos Brunson
Pharmacy: [facility] [place]
Therapy recommending home PT vs no needs. Will continue to follow weekly
Plan: Home
[2025-01-25 15:00] VITALS: BP 139/73
[2025-01-25 16:39] LABS: Glucose - Point of Care 156 mg/dl (70-99)
[2025-01-25] MEDS: LOVENOX 40 MG SC (17:15)
[2025-01-25 21:32] LABS: Glucose - Point of Care 109 mg/dl (70-99)
[2025-01-25 23:04] VITALS: BP 142/76
[2025-01-26] MEDS: FLUSH (NSS) 2 FLUSH IV (01:53)
[2025-01-26] MEDS: STERILE WATER FOR INJECTION 10 ML IV (01:53)
[2025-01-26] MEDS: ROCEPHIN 1000 MG IV (01:53)
[2025-01-26 06:00] VITALS: BMI 32.8
[2025-01-26 07:40] VITALS: BP 147/85
[2025-01-26 08:25] LABS: Glucose - Point of Care 171 mg/dl (70-99)
[2025-01-26 08:39] LABS: Hematocrit 41.1 % (37.0-47.0); Hemoglobin 13.2 g/dL (12.0-16.0); Mean Corp Hgb Conc. 32.1 g/dL (33.0-37.0); Mean Corpuscular Volume 93.4 fL (81.0-99.0); Platelet Count 112 10^3/uL (130-400); Red Cell Dist. Width 15.7 % (11.5-14.5)
[2025-01-26 09:06] LABS: Blood Urea Nitrogen 12 mg/dl (7-17); Calcium 8.8 mg/dl (8.4-10.2); Carbon Dioxide 24 mmol/L (22-30); Chloride 101 mmol/L (98-107); Estimated Creatinine Clearance 48 ml/min; Glucose 162 mg/dl (70-99); Potassium 3.7 mmol/L (3.5-5.1); Sodium 132 mmol/L (135-145); eGFR > 60.00
[2025-01-26] MEDS: ZETIA 10 MG PO (09:22)
[2025-01-26] MEDS: FOLVITE 1 MG PO (09:22)
[2025-01-26] MEDS: KCL 20 MEQ PO (09:22)
[2025-01-26] MEDS: IMDUR (EXTENDED RELEASE) 60 MG PO (09:23)
[2025-01-26] MEDS: ASPIR LOW (ENTERIC COATED) 81 MG PO (09:23)
[2025-01-26] MEDS: TOPROL XL 50 MG PO (09:23)
[2025-01-26] MEDS: PRAVACHOL 10 MG PO (09:23)
[2025-01-26] MEDS: NORVASC 2.5 MG PO (09:23)
--- NOTE | 2025-01-26 09:30 | PTCARENOTE ---
Patient refusing her meal time insulin. Educated the need for the medication. Md made aware. No s/s of distress noted. Plan of care ongoing.
[2025-01-26 10:04] LABS: Glycohemoglobin (HgbA1c) 6.8 % (4.0-5.9)
[2025-01-26 12:31] LABS: Glucose - Point of Care 128 mg/dl (70-99)
[2025-01-26] MEDS: ZOFRAN 4 MG IV (12:41)
[2025-01-26 15:40] VITALS: BP 118/68
[2025-01-26 16:45] LABS: Glucose - Point of Care 127 mg/dl (70-99)
[2025-01-26] MEDS: LOVENOX 40 MG SC (17:05)
--- NOTE | 2025-01-26 19:53 | W.PN.HOSP.TC ---
Today's Communication/Plan
-
Continue Rocephin
See plan
Assessment / Plan
Assessment / Plan
Physical Exam
General: Well Developed, Well Nourished and No Apparent Distress
HEENT: NormoCephalic, Moist mucous membranes, Atraumatic and Hearing Impaired; No Oxygen
Respiratory: Clear
Cardiac: S1/S2 and Regular Rhythm; No Murmur or Rub
GI: Soft, Non Tender, Non Distended and Normal Bowel Sounds; No Organomegaly
Rectal: Deferred by Provider
Musculoskeletal: No Clubbing, No Cyanosis and No Edema
Skin: No Rash
Neuro: AO x 3 and Nonfocal/grossly intact
Psych: Calm
Assessment/Plan
84-year-old with past medical history significant for CAD status post CABG, status post stenting, hypertension, hyperlipidemia, psoriasis, psoriatic arthritis, interstitial cystitis with recurrent urinary tract infections presented to the emergency
department with 1 day of increasing weakness and found to be febrile. According to primary next of kin with the niece patient was doing well up until about a day prior to presentation, when she became increasingly fatigued. She is known to have
urinary frequency and that has not changed. She herself was unable to provide details of any kind of urinary dysuria, flank pain or urgency or worsening frequency. She has decreased appetite also found to be febrile at home so she was brought to
the emergency department. She had not been on any antibiotics recently. She denied any known sick contacts. Daughter reported that she has a chronic cough secondary to secondhand smoking but it is more deep now without being productive. Patient
denied any shortness of breath. There is question of sleep apnea but she does not want to be tested or diagnosed or take any additional treatments. She denied any new rash, ulcers, joint swelling redness or pain.
In the emergency department she was febrile to 102.3,, blood pressure was at 150/80 with a pulse of 78 and she was satting 92 to 95% on room air. CBC was mostly unremarkable with a white count 9.1 with 13.2 and platelet of 126. Sodium was 133 the
rest of the electrolyte BUN/creatinine were normal. UA was positive for leukocyte esterase moderate bacteria and WBCs
Fever -high fever suspect secondary to cystitis with possible pyelonephritis/complicated UTI
Presentation with worsening fatigue, fever, and decreased appetite
Chronic Urinary Frequency
History of recurrent UTI and interstitial cystitis
� Blood cultures with no growth to date, urine cultures showing E. coli
� Continue ceftriaxone, tolerated cephalosporins in the past, patient improving/stable while on Ceftriaxone regimen
- Does have history of ESBL E.coli in 2022 consider broaden abx if persistently febrile pending cultures.
- Bladder scans protocol
Diabetes Mellitus
-Insulin Sliding Scale and accuchecks
CAD
-Continue aspirin 81, pravastatin 10 and ezetimibe 10
� Continue isosorbide 60
� Treat hypertension with amlodipine 2.5 as per home regimen
�Continue metoprolol succinate 50 mg daily
Psoriatic arthritis
� Hold methotrexate 5 mg on Saturdays given infection
� Continue folic acid 1 mg daily
DVT prophylaxis�Lovenox subcu
CODE STATUS�DNR
On 01/26/25, I spoke with patient's niece inside patient's room, and I answered all of her questions and concerns to satisfaction.
Anticipated Discharge: 24 - 48 hours
Subjective/Interval History
-
Date of Service: January 26, 2025
Patient was seen and examined. She was doing much better today, her niece was at bedside and confirmed that patient was doing much better.
Objective Data
-
Labs:
Laboratory Results
01/26/25
08:17
WBC 7.2
Hgb 13.2
Hct 41.1
Plt Count 112 L
Sodium 132 L
Potassium 3.7
Chloride 101
Carbon Dioxide 24
BUN 12
Creatinine 0.9
Glucose 162 H
Calcium 8.8
Vital Signs:
Vital Signs
Temp Pulse Resp BP Pulse Ox
98.1 F 74 14 118/68 93
01/26/25 15:40 01/26/25 15:40 01/26/25 15:40 01/26/25 15:40 01/26/25 15:40
I&O
01/25/25 01/26/25 01/27/25
06:59 06:59 06:59
Intake Total 720 / 720 720 / 720
Balance 720 / 720 720 / 720
[2025-01-26 22:05] LABS: Glucose - Point of Care 189 mg/dl (70-99)
[2025-01-26 22:10] VITALS: BP 118/69
[2025-01-27] MEDS: STERILE WATER FOR INJECTION 10 ML IV (02:08)
[2025-01-27] MEDS: ROCEPHIN 1000 MG IV (02:09)
[2025-01-27] MEDS: FLUSH (NSS) 2 FLUSH IV (02:11)
[2025-01-27 06:00] VITALS: BMI 32.8
[2025-01-27 07:40] VITALS: BP 121/71
[2025-01-27 07:52] LABS: Glucose - Point of Care 109 mg/dl (70-99)
[2025-01-27] MEDS: KCL 20 MEQ PO (08:16)
[2025-01-27] MEDS: ZETIA 10 MG PO (08:17)
[2025-01-27] MEDS: FOLVITE 1 MG PO (08:17)
[2025-01-27] MEDS: ASPIR LOW (ENTERIC COATED) 81 MG PO (08:17)
[2025-01-27] MEDS: TOPROL XL 50 MG PO (08:18)
[2025-01-27] MEDS: NORVASC 2.5 MG PO (08:18)
[2025-01-27] MEDS: IMDUR (EXTENDED RELEASE) 60 MG PO (08:19)
[2025-01-27] MEDS: PRAVACHOL 10 MG PO (08:19)
--- NOTE | 2025-01-27 08:24 | W.PN.HOSP.TC ---
Addendum entered and electronically signed by Lopez Fonseca MD 01/30/25 13:58:
Hyponatremia
Original Note:
Today's Communication/Plan
-
Discharge today
Assessment / Plan
Assessment / Plan
Physical Exam
General: Well Developed, Well Nourished and No Apparent Distress
HEENT: Normocephalic, Moist mucous membranes, Atraumatic and Hearing Impaired; No Oxygen
Respiratory: Clear
Cardiac: S1/S2 and Regular Rhythm
GI: Soft, Non Tender, Non Distended and Normal Bowel Sounds
Musculoskeletal: No Cyanosis and No Edema
Skin: Warm. Dry.
Neuro: AAO x 3 and Nonfocal/grossly intact
Psych: Calm
Assessment/Plan
84-year-old with past medical history significant for CAD status post CABG, status post stenting, hypertension, hyperlipidemia, psoriasis, psoriatic arthritis, interstitial cystitis with recurrent urinary tract infections presented to the emergency
department with 1 day of increasing weakness and found to be febrile. According to primary next of kin with the niece patient was doing well up until about a day prior to presentation, when she became increasingly fatigued. She is known to have
urinary frequency and that has not changed. She herself was unable to provide details of any kind of urinary dysuria, flank pain or urgency or worsening frequency. She has decreased appetite also found to be febrile at home so she was brought to
the emergency department. She had not been on any antibiotics recently. She denied any known sick contacts. Daughter reported that she has a chronic cough secondary to secondhand smoking but it is more deep now without being productive. Patient
denied any shortness of breath. There is question of sleep apnea but she does not want to be tested or diagnosed or take any additional treatments. She denied any new rash, ulcers, joint swelling redness or pain.
In the emergency department she was febrile to 102.3,, blood pressure was at 150/80 with a pulse of 78 and she was satting 92 to 95% on room air. CBC was mostly unremarkable with a white count 9.1 with 13.2 and platelet of 126. Sodium was 133 the
rest of the electrolyte BUN/creatinine were normal. UA was positive for leukocyte esterase moderate bacteria and WBCs
Fever -high fever suspect secondary to cystitis with possible pyelonephritis/complicated E. Coli UTI
Pansensitive E. Coli in urine collected on 01/24/25
History of ESBL E. coli in urine
Presentation with worsening fatigue, fever, and decreased appetite
Chronic Urinary Frequency
History of recurrent UTI and interstitial cystitis
� Blood cultures with no growth to date, urine cultures grew pansensitive E. coli (I called today inpatient microbiology lab here at [facility], and I confirmed with them, multiple times, that patient does NOT have ESBL E. coli)
� Continue ceftriaxone, tolerated cephalosporins in the past, patient improving/stable while on Ceftriaxone regimen
- On discharge, will switch to a 3rd generation cephalosporin to complete 10 total days of antibiotics
- Does have history of ESBL E.coli in 2022 consider broaden abx if persistently febrile pending cultures.
- Bladder scans protocol
Diabetes Mellitus
-Insulin Sliding Scale and accuchecks
CAD
-Continue aspirin 81, pravastatin 10 and ezetimibe 10
� Continue isosorbide 60
� Treat hypertension with amlodipine 2.5 as per home regimen
�Continue metoprolol succinate 50 mg daily
Psoriatic arthritis
� Hold methotrexate 5 mg on Saturdays given infection
� Continue folic acid 1 mg daily
DVT prophylaxis�Lovenox subcu
CODE STATUS�DNR
On 01/26/25, I spoke with patient's niece inside patient's room, and I answered all of her questions and concerns to satisfaction.
More than 30 minutes spent in discharge including
Final examination of the patient
Summarizing hospital stay
Instructions for continuing care to all relevant caregivers
Preparation of discharge records, prescriptions, and referral forms
Total time spent (in minutes): 41
Anticipated Discharge: Today
Subjective/Interval History
-
Date of Service: January 27, 2025
Patient was seen and examined. She reported doing well, she denied any new symptoms.
Objective Data
-
Labs:
Laboratory Results
01/27/25
08:12
WBC Pending
Hgb Pending
Hct Pending
Plt Count Pending
Sodium Pending
Potassium Pending
Chloride Pending
Carbon Dioxide Pending
BUN Pending
Creatinine Pending
Glucose Pending
Calcium Pending
Vital Signs:
Vital Signs
Temp Pulse Resp BP Pulse Ox
98.1 F 77 16 121/71 94
01/27/25 07:40 01/27/25 08:18 01/27/25 07:40 01/27/25 08:18 01/27/25 08:15
I&O
01/26/25 01/27/25 01/28/25
06:59 06:59 06:59
Intake Total 720 / 720 2160 / 2160
Balance 720 / 720 2160 / 2160
[2025-01-27 08:46] LABS: Hematocrit 38.1 % (37.0-47.0); Hemoglobin 12.5 g/dL (12.0-16.0); Mean Corp Hgb Conc. 32.8 g/dL (33.0-37.0); Mean Corpuscular Volume 91.4 fL (81.0-99.0); Platelet Count 123 10^3/uL (130-400); Red Cell Dist. Width 15.8 % (11.5-14.5)
[2025-01-27 09:14] LABS: Blood Urea Nitrogen 18 mg/dl (7-17); Calcium 8.9 mg/dl (8.4-10.2); Carbon Dioxide 23 mmol/L (22-30); Chloride 103 mmol/L (98-107); Estimated Creatinine Clearance 43 ml/min; Glucose 108 mg/dl (70-99); Potassium 4.2 mmol/L (3.5-5.1); Sodium 134 mmol/L (135-145); eGFR 56.25
--- NOTE | 2025-01-27 11:45 | CM ---
KYMBERLY called [facility] and spoke with [facility] who confirmed pt is from their PC and after speaking with [facility] RN, OK accept back today after 3pm.
Told [facility] uses [facility] for PT.
KYMBERLY left VM for Ivonne/family at [phone] and then called and spoke with Donya at [phone] who will be transporting pt back to facility this afternoon and agreeable to home PT at [facility].
[facility] phone # [phone]
[2025-01-27 12:23] LABS: Glucose - Point of Care 135 mg/dl (70-99)
[2025-01-27 13:51] VITALS: BP 127/78; PULSE 68; O2SAT 95
[2025-01-27 15:35] VITALS: BP 115/65
--- NOTE | 2025-01-27 16:26 | W.DCSUMMARY ---
Discharge Summary
Discharge Data
Date of Admission: 01/25/25
Date of Discharge: 01/27/25
Total time spent discharging patient (in min): 41
-
Pending Results: No
Hospital Course
84 y/o female with past medical history of CAD status post CABG, status post stenting, hypertension, hyperlipidemia, psoriasis, psoriatic arthritis, interstitial cystitis with recurrent urinary tract infections, ESBL E. coli in the urine, Klebsiella
oxytoca, Klebsiella pneumoniae and Serratia marcescens in the urine, Klebsiella pneumoniae bacteremia, presented to the emergency room with generalized weakness, fatigue, as well as fever. She was found to be febrile with temperature 102.3 F in the
emergency room. Urinalysis was suggestive of a urinary tract infection. Patient was started on intravenous Ceftriaxone, and patient's symptoms significantly improved. Throughout patient's hospitalization, patient's white blood cell count remained
normal, and blood cultures showed no growth. Patient's urine culture showed pansensitive E. coli. Patient was doing well. Patient was stable for discharge.
Discharge Plan
-
Patient Disposition: Home with Home Care
Discharge Diagnosis/Procedures: Fever -high fever suspect secondary to cystitis with possible pyelonephritis/complicated E. Coli UTI
Khan-sensitive E. Coli in urine collected on 01/24/25
History of ESBL E. coli in urine
Presentation with worsening fatigue, fever, and decreased appetite
Chronic Urinary Frequency
History of recurrent UTI and interstitial cystitis
Diabetes Mellitus
Coronary Artery Disease
Psoriatic arthritis
Condition: Good
Diet: Low Fat, Low Cholesterol, Low Sodium and Diabetic, Carb Controlled
Blood Work: CBC, BMP and Magnesium with your primary care provider's office in 3 to 4 days
Other Services: PT
Instructions: Cefpodoxime
Referrals:
Marcos Brunson MD [Family Provider, Internal Medicine] - in three to four days
Referral Note: Hospitalization Follow-Up
Additional Discharge Medication Instructions: Cefpodoxime is a new antibiotic medication.
Methotrexate is on hold until after you finish your antibiotics -- discuss with your primary care physician this upcoming week.
Prescriptions:
New
cefpodoxime 200 mg tablet
200 mg PO Q12H 7 Days Qty: 14 0RF
Continued
isosorbide mononitrate 60 MG tablet extended release 24 hr
60 mg PO DAILY
pravastatin 10 MG tablet
10 mg PO DAILY
metoprolol succinate 50 MG tablet extended release 24 hr
50 mg PO DAILY
aspirin 81 MG tablet,delayed release (DR/EC)
81 mg PO DAILY
folic acid 1 mg Tablet
1 mg PO DAILY
calcium carbonate 500 mg calcium (1,250 mg) Tablet
500 mg PO DAILY
potassium chloride 20 mEq tablet,ER particles/crystals
20 meq PO DAILY
ezetimibe 10 mg Tablet
10 mg PO DAILY
cholecalciferol (vitamin D3) 50 mcg (2,000 unit) Tablet
50 mcg PO DAILY
amlodipine 2.5 mg Tablet
2.5 mg PO DAILY
Gemtesa 75 mg Tablet
75 mg PO DAILY
ferrous sulfate 325 mg (65 mg iron) Tablet
325 mg PO DAILY
acetaminophen [Tylenol] 325 mg Tablet
650 mg PO Q4H PRN (Reason: pain)
GennaMD 130 mg Capsule
130 mg PO DAILY
Held
methotrexate sodium 2.5 MG tablet
15 mg PO SA
Hold Instructions: Resume on 09/08/24.
Discharge Orders:
Discharge Patient (As Directed); Ordered 01/27/25
Ordered By: Lopez Fonseca
Discharge Date and Time
Discharge Date/Time: 01/27/25 17:21
Print Language: SWEDISH
--- NOTE | 2025-01-29 11:25 | PN.CDI ---
CDI
- -
CDI:
Physician Documentation Request
Admit Date: 01/25/25 02:09
Dear Doctor,
Patient admitted with cystitis.
Laboratory Tests
01/24/25 01/26/25 01/27/25
21:29 08:17 08:12
Sodium 133 L 132 L 134 L
Based on the above, could you clarify in the progress notes, the appropriate diagnosis, if significant, that supports the above abnormalities and additional evaluation, monitoring and/or treatment rendered:
Hyponatremia
Abnormal lab value insignificant
Other
Use of terms such as suspected, likely, concern for, or probable (associated with a specific diagnosis that is being evaluated, monitored, or treated as if it exists) are acceptable and can be coded in the inpatient setting, when documented at the
time of discharge.
Thank you,
Daya Heart RN, BSN
CDI Specialist
Available via [place] text
Please use your independent medical judgment in providing your response.
== END 2025-01-27 17:21 | disposition home health service (06) | DRG 690 ==
LOC: 2 NORTH 02:09
PROVIDERS: Emergency Medicine; ADMITTING PHYSICIAN Internal Medicine; ATTENDING PHYSICIAN Hospitalist; EMERGENCY PHYSICIAN Student in an Organized Health Care Education/Training Program; FAMILY PHYSICIAN Internal Medicine Geriatric Medicine
DX: N12 Tubulo-interstitial nephritis, not specified as acute or chronic (principal); I13.0 Hypertensive heart and chronic kidney disease with heart failure and stage 1 through stage 4 chronic kidney disease, or unspecified chronic kidney disease; I50.32 Chronic diastolic (congestive) heart failure; E87.1 Hypo-osmolality and hyponatremia; N30.90 Cystitis, unspecified without hematuria; I25.10 Atherosclerotic heart disease of native coronary artery without angina pectoris; L40.50 Arthropathic psoriasis, unspecified; Z66 Do not resuscitate; N18.32 Chronic kidney disease, stage 3b; R29.6 Repeated falls; E78.5 Hyperlipidemia, unspecified; Z11.52 Encounter for screening for COVID-19; Z79.899 Other long term (current) drug therapy; Z87.440 Personal history of urinary (tract) infections; B96.20 Unspecified Escherichia coli [E. coli] as the cause of diseases classified elsewhere; E11.22 Type 2 diabetes mellitus with diabetic chronic kidney disease
CPT/HCPCS: 51701; 71046; 80048; 80053; 81003; 81015; 82962; 83036; 83605; 83880; 85025; 85027; 87040; 87077; 87086; 87186; 87502; 87811; 93005; 94760; 97116; 97162; 97167; 97530; 99285; J8610